=== PATIENT | female | born 1950 | race Caucasian/White ===

== ENCOUNTER 2017-11-12 09:50 | Emergency (ER) | payer MEDICARE, MEDICAID ==
[~2017-11-12] VITALS: Ht 162.6 cm; Wt 68.0 kg
[2017-11-12 11:48] VITALS: BP 128/85
[2017-11-12] MEDS ORDERED: BACITRACIN-POLYMYXIN B TOPICAL OINT UD TOP ONE (14:30)
== END 2017-11-12 14:45 | disposition home or self-care (01) ==
LOC: ER 09:50
DX: M79.671 Pain in right foot (principal)
CPT/HCPCS: 73620

== ENCOUNTER 2017-12-21 09:28 | Emergency (ER) | payer MEDICARE, MEDICAID ==
[~2017-12-21] VITALS: Ht 154.9 cm; Wt 65.8 kg
[2017-12-21 09:42] VITALS: BP 142/85
[2017-12-21] MEDS ORDERED: KETOROLAC TROMETH 60MG/2ML VIAL IM ONE (12:15)
== END 2017-12-21 12:51 | disposition home or self-care (01) ==
LOC: ER 09:28
DX: M51.36 Other intervertebral disc degeneration, lumbar region (principal); M54.16 Radiculopathy, lumbar region; M25.551 Pain in right hip
CPT/HCPCS: 72192; 73502; 96372; 99284; J1885

== ENCOUNTER 2018-11-27 09:21 | Emergency (ER) | payer OTHER, MEDICAID ==
[~2018-11-27] VITALS: Ht 157.5 cm; Wt 65.8 kg
[2018-11-27 09:57] VITALS: BP 151/78
[2018-11-27] MEDS ORDERED: METHOCARBAMOL 500 MG TAB PO ONE (10:30)
[2018-11-27] MEDS ORDERED: KETOROLAC TROMETH 30 MG/ML 1ML VIAL IM ONE (10:30)
== END 2018-11-27 12:42 | disposition home or self-care (01) ==
LOC: ER 09:21
DX: M54.5 Low back pain (principal); G89.29 Other chronic pain; M79.18 Myalgia, other site
CPT/HCPCS: 72131; 96372; 99284; J1885

== ENCOUNTER 2019-11-01 10:11 | Emergency (ER) | payer MEDICAID, OTHER ==
[~2019-11-01] VITALS: Ht 157.5 cm; Wt 64.0 kg
[2019-11-01 10:15] VITALS: BP 147/90
== END 2019-11-01 11:23 | disposition home or self-care (01) ==
LOC: ER 10:11
DX: J20.9 Acute bronchitis, unspecified (principal); I10 Essential (primary) hypertension; E78.00 Pure hypercholesterolemia, unspecified
CPT/HCPCS: 71046

== ENCOUNTER 2021-07-03 15:45 | Inpatient (IN) | payer OTHER ==
[~2021-07-03] VITALS: Ht 157.5 cm; Wt 65.4 kg
[2021-07-03] MEDS ORDERED: SODIUM CHLORIDE 0.9% 1,000 ML IV ONE (17:15)
[2021-07-03] MEDS ORDERED: HYDROmorphone HCL 2 MG/ML VL IV ONE (17:15)
[2021-07-03] MEDS ORDERED: METOCLOPRAMIDE HCL 5MG/ml INJ 2ml VIAL IV ONE (17:15)
[2021-07-03 17:46] LABS: Basophils # (auto) 0.1 10 ^3/uL (0-0.2); Basophils % (auto) 0.6 % (0.0-2.0); Eosinophils # (auto) 0 10 ^3/uL (0-0.8); Hematocrit 42.3 % (36.0-46.0); Hemoglobin 13.9 g/dL (12.2-16.2); Lymphocytes # (auto) 0.9 10 ^3/uL (0.4-5.4); Lymphocytes % (auto) 5.3 % (10.0-50.0); Mean Corpuscular Hemoglobin 29.4 pg (28.0-32.0); Mean Corpuscular Volume 89.1 fL (80.0-100.0); Monocytes # (auto) 0.2 10 ^3/uL (0-1.3); Monocytes % (auto) 0.9 % (0.0-12.0); Neutrophils # (auto) 15.5 10 ^3/uL (1.6-8.6); Neutrophils % (auto) 93.2 % (37.0-80.0); Nucleated Red Blood Cells % 0.1 %; Red Blood Cells 4.74 10^6/uL (4.0-5.20); Red Cell Distribution Width 15.4 % (11.8-14.3); White Blood Cell 16.6 10^3/uL (4.4-10.8)
[2021-07-03 18:03] LABS: Albumin 2.8 g/dL (3.4-5.0); BUN/Creatinine Ratio 28.3; Calcium 8.6 mg/dL (8.5-10.1); Magnesium 2.2 mg/dL (1.6-2.6); Potassium 4.4 mmol/L (3.5-5.1)
[2021-07-03 18:05] LABS: Bilirubin, Total 0.2 mg/dL (0.2-1.0)
[2021-07-03] MEDS ORDERED: MORPHINE SULFATE 4 MG/ML SYR/VIAL IV PRN (19:45)
[2021-07-03] MEDS ORDERED: NITROGLYCERIN 0.4 MG SL TAB SL PRN (19:45)
[2021-07-03] MEDS ORDERED: cefTRIAXone 1GM/50ML D5W 50 ML IV ONE (19:45)
[2021-07-03] MEDS ORDERED: ONDANSETRON HCL 4 MG/2 ML VIAL IV PRN (19:45)
[2021-07-03] MEDS ORDERED: MORPHINE SULFATE INJECTION 2 MG/ML SYRG IV PRN (19:45)
[2021-07-03] MEDS ORDERED: DEXTROSE (50%) 50ML SYRG IV PRN (20:15)
[2021-07-03 20:24] LABS: INR 0.94 (0.9-1.15); Partial Thromboplastin Time 23.7 sec (23.6-33.0)
[2021-07-03 21:51] VITALS: BP 136/82
[2021-07-03] MEDS: SODIUM CHLORIDE 0.9% 1,000 ML IV SCH (21:51)
[2021-07-03] MEDS: InsuLIN REG 1unit/0.01ml Soln (100units/ml) SC SCH (22:00)
[2021-07-03] MEDS: ACCU-CHEK COMFORT CURVE STRIP VI SCH (22:00)
[2021-07-03 22:15] VITALS: BP 136/82
[2021-07-04] MEDS ORDERED: PRED20TA2 PO (02:15)
[2021-07-04 05:00] VITALS: BP 138/81
[2021-07-04] MEDS: SODIUM CHLORIDE 0.9% 1,000 ML IV SCH (05:10)
[2021-07-04] MEDS: ACCU-CHEK COMFORT CURVE STRIP VI SCH ×4 (05:54→23:47)
[2021-07-04] MEDS: InsuLIN REG 1unit/0.01ml Soln (100units/ml) SC SCH ×4 (06:27→22:00)
[2021-07-04 06:36] LABS: Urine Bacteria NONE SEEN /hpf (None Seen); Urine Blood Negative /uL (Negative); Urine Mucus FEW (None Seen); Urine Specific Gravity 1.027 (1.001-1.035); Urine WBC 5 /hpf (0 - 5)
[2021-07-04 06:36] LABS: Basophils # (auto) 0 10 ^3/uL (0-0.2); Basophils % (auto) 0.2 % (0.0-2.0); Eosinophils # (auto) 0 10 ^3/uL (0-0.8); Hematocrit 36.8 % (36.0-46.0); Hemoglobin 12.2 g/dL (12.2-16.2); Lymphocytes % (auto) 16.5 % (10.0-50.0); Mean Corpuscular Hemoglobin 29.5 pg (28.0-32.0); Mean Corpuscular Hgb Conc. 33.2 g/dL (32.0-36.0); Mean Corpuscular Volume 88.8 fL (80.0-100.0); Monocytes # (auto) 0.7 10 ^3/uL (0-1.3); Monocytes % (auto) 3.7 % (0.0-12.0); Neutrophils # (auto) 14.2 10 ^3/uL (1.6-8.6); Neutrophils % (auto) 79.6 % (37.0-80.0); Red Blood Cells 4.15 10^6/uL (4.0-5.20); Red Cell Distribution Width 15.3 % (11.8-14.3); White Blood Cell 17.9 10^3/uL (4.4-10.8)
[2021-07-04 06:51] LABS: Calcium 7.8 mg/dL (8.5-10.1); Potassium 3.8 mmol/L (3.5-5.1)
[2021-07-04 06:55] LABS: Albumin 2.2 g/dL (3.4-5.0); BUN/Creatinine Ratio 58.6
[2021-07-04 06:57] LABS: Bilirubin, Total 0.4 mg/dL (0.2-1.0); Total Protein 5.2 g/dL (6.4-8.2)
[2021-07-04 09:00] VITALS: BP 140/80
[2021-07-04] MEDS ORDERED: cefTRIAXone 1GM/50ML D5W 50 ML IV SCH (09:00)
[2021-07-04] MEDS: MORPHINE SULFATE INJECTION 2 MG/ML SYRG IV PRN ×2 (09:47→17:11)
[2021-07-04] MEDS: predniSONE 20 MG TAB PO SCH (10:09)
[2021-07-04 13:00] VITALS: BP 144/80
[2021-07-04] MEDS ORDERED: SOD CHL 0.45% WITH 20MEQ KCL 1,000 ML IV SCH (13:00)
[2021-07-04] MEDS ORDERED: hydrALAZINE HCL 20 MG/ML VL IV PRN (13:30)
[2021-07-04 17:00] VITALS: BP 133/76
[2021-07-04] MEDS: CALCIUM W/VIT D (600MG/400IU) TAB PO SCH (17:10)
[2021-07-04] MEDS: HYDROcodone-ACET 5/325MG TAB PO PRN (19:40)
[2021-07-04 22:00] VITALS: BP 131/77
[2021-07-04] MEDS: SOD CHL 0.45% WITH 20MEQ KCL 1,000 ML IV SCH (23:47)
[2021-07-05] VITALS (14 sets, daily range): BP systolic 108–148; BP diastolic 63–85
[2021-07-05] MEDS: MORPHINE SULFATE INJECTION 2 MG/ML SYRG IV PRN (05:06)
[2021-07-05 05:07] LABS: Basophils # (auto) 0 10 ^3/uL (0-0.2); Basophils % (auto) 0.1 % (0.0-2.0); Eosinophils # (auto) 0.1 10 ^3/uL (0-0.8); Eosinophils % (auto) 0.3 % (0.0-7.0); Hematocrit 38.4 % (36.0-46.0); Hemoglobin 12.7 g/dL (12.2-16.2); Lymphocytes # (auto) 3.8 10 ^3/uL (0.4-5.4); Mean Corpuscular Hemoglobin 29.5 pg (28.0-32.0); Mean Corpuscular Volume 89.5 fL (80.0-100.0); Monocytes # (auto) 0.7 10 ^3/uL (0-1.3); Monocytes % (auto) 4.5 % (0.0-12.0); Neutrophils # (auto) 10.6 10 ^3/uL (1.6-8.6); Neutrophils % (auto) 70.1 % (37.0-80.0); Red Cell Distribution Width 15.3 % (11.8-14.3); White Blood Cell 15.2 10^3/uL (4.4-10.8)
[2021-07-05] MEDS: InsuLIN REG 1unit/0.01ml Soln (100units/ml) SC SCH ×4 (05:11→21:54)
[2021-07-05] MEDS: ACCU-CHEK COMFORT CURVE STRIP VI SCH ×4 (05:12→21:54)
[2021-07-05 05:34] LABS: BUN/Creatinine Ratio 46.4; Calcium 8.7 mg/dL (8.5-10.1); Potassium 3.9 mmol/L (3.5-5.1)
[2021-07-05] MEDS: HYDROcodone-ACET 5/325MG TAB PO PRN ×2 (08:12→21:55)
[2021-07-05] MEDS: CALCIUM W/VIT D (600MG/400IU) TAB PO SCH ×2 (08:12→17:58)
[2021-07-05] MEDS ORDERED: TETRACAINE 1% INJ 2 ML VIAL IJ ONE (10:46)
[2021-07-05] MEDS ORDERED: BUPIVACAINE W/ EPINEPH 0.25% INJ 50ML MDV ONE (10:46)
[2021-07-05] MEDS ORDERED: fentaNYL CITRATE 100 MCG/2 ML VL ONE (11:00)
[2021-07-05] MEDS ORDERED: MIDAZOLAM HCL 2MG/2ML 2ml VIAL (1mg/ml) ONE (11:00)
[2021-07-05] MEDS ORDERED: DexAMETHasone SOD PHOS 10MG/1ML VIAL INJ ONE (11:01)
[2021-07-05] MEDS ORDERED: MORPHINE SULF PF 2 MG/2 ML SYRG ONE (11:01)
[2021-07-05] MEDS ORDERED: PROPOFOL 10 MG/ML 20 ML IV ONE (11:01)
[2021-07-05] MEDS ORDERED: CLINDAMYCIN 900MG IV 50 ML IV ONE (11:04)
[2021-07-05] MEDS: SOD CHL 0.45% WITH 20MEQ KCL 1,000 ML IV SCH (11:20)
[2021-07-05] MEDS ORDERED: DexAMETHasone SOD PHOS 10MG/1ML VIAL INJ IV PRN (11:45)
[2021-07-05] MEDS ORDERED: NALBUPHINE HCL 10 MG/1ml INJECTION SUBCUT ONE (11:45)
[2021-07-05] MEDS ORDERED: MIDAZOLAM HCL 2MG/2ML 2ml VIAL (1mg/ml) IV PRN (11:45)
[2021-07-05] MEDS ORDERED: NALOXONE HCL 0.4 MG/ML VIAL IV PRN (11:45)
[2021-07-05] MEDS ORDERED: ONDANSETRON HCL 4 MG/2 ML VIAL IV PRN (11:45)
[2021-07-05] MEDS ORDERED: LABETALOL HCL 5 MG/ML 4ML SYRINGE IV PRN (11:45)
[2021-07-05] MEDS ORDERED: HYDROmorphone HCL 2 MG/ML VL IV PRN (11:45)
[2021-07-05] MEDS ORDERED: diphenhdrAMINE HCL 50 MG/1 ML VL IV PRN (11:45)
[2021-07-05] MEDS ORDERED: ePHEDrine SULFATE 50 MG/ML AMP IV PRN (11:45)
[2021-07-05] MEDS ORDERED: LACTATED RINGER'S 1,000 ML IV SCH (12:45)
[2021-07-05] MEDS: SODIUM CHLOR 0.9% PF (SALINE LOCK) 10ML VIAL/SYR IV SCH ×2 (14:06→21:54)
[2021-07-05] MEDS: predniSONE 20 MG TAB PO SCH (17:58)
[2021-07-05] MEDS: CLINDAMYCIN 600MG IV 50 ML IV SCH (17:58)
[2021-07-05] MEDS: FERROUS SULFATE 325mg EC TAB PO SCH (18:02)
[2021-07-05] MEDS: ASCORBIC ACID 500 MG TAB PO SCH (21:54)
[2021-07-06] VITALS (17 sets, daily range): BP systolic 98–145; BP diastolic 65–82
[2021-07-06] MEDS: SOD CHL 0.45% WITH 20MEQ KCL 1,000 ML IV SCH (00:40)
[2021-07-06] MEDS: SODIUM CHLOR 0.9% PF (SALINE LOCK) 10ML VIAL/SYR IV SCH ×3 (06:00→20:54)
[2021-07-06] MEDS: CLINDAMYCIN 600MG IV 50 ML IV SCH ×2 (06:00)
[2021-07-06 06:02] LABS: Hematocrit 33.8 % (36.0-46.0); Hemoglobin 11.3 g/dL (12.2-16.2)
[2021-07-06 06:30] LABS: Potassium 4.6 mmol/L (3.5-5.1)
[2021-07-06] MEDS: ACCU-CHEK COMFORT CURVE STRIP VI SCH ×4 (06:30→20:56)
[2021-07-06] MEDS: InsuLIN REG 1unit/0.01ml Soln (100units/ml) SC SCH ×4 (06:30→20:56)
[2021-07-06 06:37] LABS: Albumin 2.1 g/dL (3.4-5.0); BUN/Creatinine Ratio 56.3; Calcium 8.9 mg/dL (8.5-10.1)
[2021-07-06 06:39] LABS: Bilirubin, Total 0.5 mg/dL (0.2-1.0); Total Protein 5.6 g/dL (6.4-8.2)
[2021-07-06] MEDS: FERROUS SULFATE 325mg EC TAB PO SCH ×2 (08:51→16:54)
[2021-07-06] MEDS: HYDROcodone-ACET 5/325MG TAB PO PRN ×2 (08:51→21:58)
[2021-07-06] MEDS: CALCIUM W/VIT D (600MG/400IU) TAB PO SCH ×2 (08:51→16:54)
[2021-07-06] MEDS: predniSONE 20 MG TAB PO SCH (08:51)
[2021-07-06] MEDS: MULTIPLE VITAMIN TAB PO SCH (08:52)
[2021-07-06] MEDS: ENOXAPARIN SOD 40 MG/0.4 ML SYRINGE SC SCH (08:52)
[2021-07-06] MEDS: ASCORBIC ACID 500 MG TAB PO SCH ×2 (08:52→20:55)
[2021-07-06] MEDS: ACETAMINOPHEN 500 MG TAB PO PRN (12:46)
[2021-07-07] MEDS: SODIUM CHLOR 0.9% PF (SALINE LOCK) 10ML VIAL/SYR IV SCH ×3 (05:24→21:27)
[2021-07-07] MEDS: ACCU-CHEK COMFORT CURVE STRIP VI SCH ×2 (05:25→10:52)
[2021-07-07] MEDS: InsuLIN REG 1unit/0.01ml Soln (100units/ml) SC SCH ×2 (05:25→10:52)
[2021-07-07 05:35] VITALS: BP 139/77
[2021-07-07 05:46] LABS: Basophils # (auto) 0 10 ^3/uL (0-0.2); Basophils % (auto) 0.2 % (0.0-2.0); Eosinophils # (auto) 0 10 ^3/uL (0-0.8); Eosinophils % (auto) 0.1 % (0.0-7.0); Hematocrit 31.1 % (36.0-46.0); Hemoglobin 10.5 g/dL (12.2-16.2); Lymphocytes # (auto) 2.8 10 ^3/uL (0.4-5.4); Lymphocytes % (auto) 17.7 % (10.0-50.0); Mean Corpuscular Hemoglobin 30.3 pg (28.0-32.0); Mean Corpuscular Hgb Conc. 33.7 g/dL (32.0-36.0); Mean Corpuscular Volume 89.9 fL (80.0-100.0); Monocytes # (auto) 0.6 10 ^3/uL (0-1.3); Monocytes % (auto) 3.9 % (0.0-12.0); Neutrophils # (auto) 12.2 10 ^3/uL (1.6-8.6); Neutrophils % (auto) 78.1 % (37.0-80.0); Red Blood Cells 3.45 10^6/uL (4.0-5.20); Red Cell Distribution Width 15.3 % (11.8-14.3); White Blood Cell 15.7 10^3/uL (4.4-10.8)
[2021-07-07] MEDS: FERROUS SULFATE 325mg EC TAB PO SCH ×2 (08:14→17:09)
[2021-07-07] MEDS: ENOXAPARIN SOD 40 MG/0.4 ML SYRINGE SC SCH (08:14)
[2021-07-07] MEDS: ASCORBIC ACID 500 MG TAB PO SCH ×2 (08:14→21:25)
[2021-07-07] MEDS: MULTIPLE VITAMIN TAB PO SCH (08:14)
[2021-07-07] MEDS: predniSONE 20 MG TAB PO SCH (08:14)
[2021-07-07] MEDS: CALCIUM W/VIT D (600MG/400IU) TAB PO SCH ×2 (08:14→17:09)
[2021-07-07] MEDS: HYDROcodone-ACET 5/325MG TAB PO PRN ×3 (09:10→21:26)
[2021-07-07 16:29] VITALS: BP 146/92
[2021-07-07 22:00] VITALS: BP 123/84
[2021-07-07] MEDS: ZOLPIDEM TARTRATE 5 MG TAB PO PRN (22:19)
[2021-07-08 05:00] VITALS: BP 124/78
[2021-07-08 05:42] LABS: Basophils # (auto) 0 10 ^3/uL (0-0.2); Basophils % (auto) 0.1 % (0.0-2.0); Eosinophils # (auto) 0 10 ^3/uL (0-0.8); Eosinophils % (auto) 0.2 % (0.0-7.0); Hematocrit 31.4 % (36.0-46.0); Hemoglobin 10.3 g/dL (12.2-16.2); Lymphocytes # (auto) 4.1 10 ^3/uL (0.4-5.4); Lymphocytes % (auto) 27.5 % (10.0-50.0); Mean Corpuscular Hemoglobin 29.9 pg (28.0-32.0); Mean Corpuscular Hgb Conc. 32.9 g/dL (32.0-36.0); Mean Corpuscular Volume 90.9 fL (80.0-100.0); Monocytes # (auto) 0.6 10 ^3/uL (0-1.3); Monocytes % (auto) 4.1 % (0.0-12.0); Neutrophils # (auto) 10.2 10 ^3/uL (1.6-8.6); Neutrophils % (auto) 68.1 % (37.0-80.0); Nucleated Red Blood Cells % 0.1 %; Red Blood Cells 3.45 10^6/uL (4.0-5.20); Red Cell Distribution Width 15.6 % (11.8-14.3)
[2021-07-08] MEDS: SODIUM CHLOR 0.9% PF (SALINE LOCK) 10ML VIAL/SYR IV SCH ×3 (06:00→22:31)
[2021-07-08] MEDS: FERROUS SULFATE 325mg EC TAB PO SCH ×2 (08:53→17:42)
[2021-07-08] MEDS: CALCIUM W/VIT D (600MG/400IU) TAB PO SCH ×2 (08:54→17:42)
[2021-07-08] MEDS: MULTIPLE VITAMIN TAB PO SCH (08:54)
[2021-07-08] MEDS: ENOXAPARIN SOD 40 MG/0.4 ML SYRINGE SC SCH (08:54)
[2021-07-08] MEDS: ASCORBIC ACID 500 MG TAB PO SCH ×2 (08:54→22:31)
[2021-07-08] MEDS: predniSONE 20 MG TAB PO SCH (08:55)
[2021-07-08 09:00] VITALS: BP 129/82
[2021-07-08] MEDS: ACETAMINOPHEN 500 MG TAB PO PRN ×2 (09:31→17:48)
[2021-07-08 13:00] VITALS: BP 126/82
[2021-07-08 17:00] VITALS: BP 128/81
[2021-07-08 21:00] VITALS: BP 130/83
[2021-07-08] MEDS: ZOLPIDEM TARTRATE 5 MG TAB PO PRN (22:32)
[2021-07-09 04:00] VITALS: BP 137/78
[2021-07-09] MEDS: ACETAMINOPHEN 500 MG TAB PO PRN (05:16)
[2021-07-09] MEDS: SODIUM CHLOR 0.9% PF (SALINE LOCK) 10ML VIAL/SYR IV SCH ×3 (06:05→23:11)
[2021-07-09 06:21] LABS: Basophils # (auto) 0 10 ^3/uL (0-0.2); Basophils % (auto) 0.2 % (0.0-2.0); Eosinophils # (auto) 0 10 ^3/uL (0-0.8); Eosinophils % (auto) 0.3 % (0.0-7.0); Hematocrit 29.9 % (36.0-46.0); Lymphocytes # (auto) 3.8 10 ^3/uL (0.4-5.4); Lymphocytes % (auto) 26.3 % (10.0-50.0); Mean Corpuscular Hemoglobin 30.2 pg (28.0-32.0); Mean Corpuscular Hgb Conc. 33.4 g/dL (32.0-36.0); Mean Corpuscular Volume 90.5 fL (80.0-100.0); Monocytes # (auto) 0.6 10 ^3/uL (0-1.3); Neutrophils % (auto) 69.2 % (37.0-80.0); Red Blood Cells 3.31 10^6/uL (4.0-5.20); Red Cell Distribution Width 15.4 % (11.8-14.3); White Blood Cell 14.5 10^3/uL (4.4-10.8)
[2021-07-09 08:00] VITALS: BP 121/81
[2021-07-09] MEDS: ENOXAPARIN SOD 40 MG/0.4 ML SYRINGE SC SCH (09:14)
[2021-07-09] MEDS: predniSONE 20 MG TAB PO SCH (09:14)
[2021-07-09] MEDS: ASCORBIC ACID 500 MG TAB PO SCH ×2 (09:14→23:11)
[2021-07-09] MEDS: MULTIPLE VITAMIN TAB PO SCH (09:15)
[2021-07-09] MEDS: CALCIUM W/VIT D (600MG/400IU) TAB PO SCH ×2 (09:15→19:06)
[2021-07-09] MEDS: FERROUS SULFATE 325mg EC TAB PO SCH ×2 (09:15→19:06)
[2021-07-09 22:00] VITALS: BP 133/78
[2021-07-09] MEDS: ZOLPIDEM TARTRATE 5 MG TAB PO PRN (23:12)
[2021-07-10 05:00] VITALS: BP 137/76
[2021-07-10 06:12] LABS: Basophils # (auto) 0 10 ^3/uL (0-0.2); Basophils % (auto) 0.2 % (0.0-2.0); Eosinophils # (auto) 0.1 10 ^3/uL (0-0.8); Eosinophils % (auto) 0.4 % (0.0-7.0); Hematocrit 29.5 % (36.0-46.0); Hemoglobin 9.9 g/dL (12.2-16.2); Lymphocytes # (auto) 4.5 10 ^3/uL (0.4-5.4); Lymphocytes % (auto) 26.6 % (10.0-50.0); Mean Corpuscular Hemoglobin 30.4 pg (28.0-32.0); Mean Corpuscular Hgb Conc. 33.5 g/dL (32.0-36.0); Monocytes # (auto) 0.7 10 ^3/uL (0-1.3); Neutrophils # (auto) 11.6 10 ^3/uL (1.6-8.6); Neutrophils % (auto) 68.8 % (37.0-80.0); Nucleated Red Blood Cells % 0.4 %; Red Blood Cells 3.24 10^6/uL (4.0-5.20); Red Cell Distribution Width 15.6 % (11.8-14.3); White Blood Cell 16.9 10^3/uL (4.4-10.8)
[2021-07-10] MEDS: SODIUM CHLOR 0.9% PF (SALINE LOCK) 10ML VIAL/SYR IV SCH (06:32)
[2021-07-10 09:00] VITALS: BP 130/77
[2021-07-10] MEDS: FERROUS SULFATE 325mg EC TAB PO SCH (09:18)
[2021-07-10] MEDS: CALCIUM W/VIT D (600MG/400IU) TAB PO SCH (09:18)
[2021-07-10] MEDS: MULTIPLE VITAMIN TAB PO SCH (09:30)
[2021-07-10] MEDS: ASCORBIC ACID 500 MG TAB PO SCH (09:30)
[2021-07-10] MEDS: predniSONE 20 MG TAB PO SCH (09:30)
[2021-07-10] MEDS: ACETAMINOPHEN 500 MG TAB PO PRN (09:31)
[2021-07-10] MEDS: ENOXAPARIN SOD 40 MG/0.4 ML SYRINGE SC SCH (09:31)
[2021-07-10 13:00] VITALS: BP 136/84
== END 2021-07-10 17:21 | disposition home or self-care (01) | DRG 481 ==
LOC: EDUNIT# 15:45 → EDBD 15:45 → ER 15:50 → TELE 19:44 → TELE-WESTW 21:47 → WEST WING 07-07 09:37
PROVIDERS: ADMIT Internal Medicine; ATTEND Internal Medicine
PROC: 0QU60KZ Supplement Right Upper Femur with Nonautologous Tissue Substitute, Open Approach (ICD-10-PCS; 2021-07-05)
PROC: BQ10ZZZ Fluoroscopy of Right Hip (ICD-10-PCS; 2021-07-05)
PROC: 0QS604Z Reposition Right Upper Femur with Internal Fixation Device, Open Approach (ICD-10-PCS; principal; 2021-07-05 11:06)
DX: S72.21XA Displaced subtrochanteric fracture of right femur, initial encounter for closed fracture (principal); M33.20 Polymyositis, organ involvement unspecified; E44.0 Moderate protein-calorie malnutrition; M16.0 Bilateral primary osteoarthritis of hip; M06.9 Rheumatoid arthritis, unspecified; I10 Essential (primary) hypertension; E78.5 Hyperlipidemia, unspecified; W01.0XXA Fall on same level from slipping, tripping and stumbling without subsequent striking against object, initial encounter; Z20.822 Contact with and (suspected) exposure to COVID-19; R73.9 Hyperglycemia, unspecified; T38.0X5A Adverse effect of glucocorticoids and synthetic analogues, initial encounter; D72.829 Elevated white blood cell count, unspecified; Z68.28 Body mass index [BMI] 28.0-28.9, adult; Z88.0 Allergy status to penicillin; Z98.51 Tubal ligation status; Y93.89 Activity, other specified; Y92.098 Other place in other non-institutional residence as the place of occurrence of the external cause; Y99.8 Other external cause status
CPT/HCPCS: 36415; 71045; 72192; 73502; 76001; 80048; 80053; 81001; 82550; 82962; 83036; 83735; 83874; 84484; 85014; 85018; 85025; 85048; 85610; 85730; 86850; 86900; 86901; 87040; 87086; 87426; 93005; 93306; 96361; 96374; 96375; 97110; 97116; 97163; 97530; G0378; J1100; J1815; J2250; J2704; J3490

== ENCOUNTER 2021-11-04 09:44 | Emergency (ER) | payer OTHER ==
[~2021-11-04] VITALS: Ht 157.5 cm; Wt 61.2 kg
[~2021-11-04 09:44] MED LIST: PRED20TA2 PO
[2021-11-04 12:12] VITALS: BP 174/97
[2021-11-04] MEDS ORDERED: HYDROcodone-ACET 5/325MG TAB PO ONE (12:45)
[2021-11-04] MEDS ORDERED: ACET60TA10 PO (12:52)
== END 2021-11-04 13:17 | disposition home or self-care (01) ==
LOC: ER 09:44
DX: M51.37 Other intervertebral disc degeneration, lumbosacral region (principal); E78.5 Hyperlipidemia, unspecified; I10 Essential (primary) hypertension; Z98.51 Tubal ligation status; Z88.0 Allergy status to penicillin

== ENCOUNTER → 2021-11-25 | Outpatient (CLI) | payer OTHER, MEDICARE ==
[~2021-11-25] MED LIST changes: +ACET60TA10 PO
[2021-11-25 09:14] LABS: Urine Bacteria FEW /hpf (None Seen); Urine Blood Negative /uL (Negative); Urine Specific Gravity 1.018 (1.001-1.035); Urine WBC 3 /hpf (0 - 5)
[2021-11-25 09:18] LABS: Basophils # (auto) 0 10 ^3/uL (0-0.2); Eosinophils # (auto) 0 10 ^3/uL (0-0.8); Monocytes # (auto) 0.6 10 ^3/uL (0-1.3)
[2021-11-25 09:20] LABS: Basophils % (auto) 0.1 % (0.0-2.0); Eosinophils % (auto) 0.1 % (0.0-7.0); Hematocrit 41.8 % (36.0-46.0); Hemoglobin 13.7 g/dL (12.2-16.2); Lymphocytes # (auto) 4.1 10 ^3/uL (0.4-5.4); Lymphocytes % (auto) 29.6 % (10.0-50.0); Mean Corpuscular Hemoglobin 27.9 pg (28.0-32.0); Mean Corpuscular Hgb Conc. 32.8 g/dL (32.0-36.0); Monocytes % (auto) 4.1 % (0.0-12.0); Neutrophils # (auto) 9.1 10 ^3/uL (1.6-8.6); Neutrophils % (auto) 66.1 % (37.0-80.0); Red Blood Cells 4.91 10^6/uL (4.0-5.20); Red Cell Distribution Width 18.5 % (11.8-14.3); White Blood Cell 13.8 10^3/uL (4.4-10.8)
[2021-11-25 09:38] LABS: Albumin 3.3 g/dL (3.4-5.0); Potassium 3.7 mmol/L (3.5-5.1)
[2021-11-25 09:49] LABS: BUN/Creatinine Ratio 15.3; Bilirubin, Total 0.5 mg/dL (0.2-1.0); Calcium 8.7 mg/dL (8.5-10.1); Total Protein 6.6 g/dL (6.4-8.2)
== END | disposition home or self-care (01) ==
LOC: LAB 08:35
PROVIDERS: ATTEND Student in an Organized Health Care Education/Training Program
DX: R73.9 Hyperglycemia, unspecified (principal); I10 Essential (primary) hypertension
CPT/HCPCS: 36415; 80053; 80061; 81001; 83036; 84443; 85025

== ENCOUNTER → 2022-03-03 | Outpatient (CLI) | payer OTHER, MEDICARE | END | disposition home or self-care (01) | LOC: LAB 15:54 | PROVIDERS: ATTEND Student in an Organized Health Care Education/Training Program | DX: Z12.11 Encounter for screening for malignant neoplasm of colon (principal) | CPT/HCPCS: 82270 ==

== ENCOUNTER 2022-03-24 07:38 | Inpatient (IN) | payer OTHER ==
[2022-03-22 12:18] LABS: Basophils # (auto) 0.1 10 ^3/uL (0-0.2); Basophils % (auto) 0.5 % (0.0-2.0); Eosinophils # (auto) 0 10 ^3/uL (0-0.8); Eosinophils % (auto) 0.1 % (0.0-7.0); Hematocrit 42.7 % (36.0-46.0); Hemoglobin 14.2 g/dL (12.2-16.2); Lymphocytes # (auto) 3.2 10 ^3/uL (0.4-5.4); Lymphocytes % (auto) 19.7 % (10.0-50.0); Mean Corpuscular Hemoglobin 29.4 pg (28.0-32.0); Mean Corpuscular Hgb Conc. 33.3 g/dL (32.0-36.0); Mean Corpuscular Volume 88.2 fL (80.0-100.0); Monocytes # (auto) 0.7 10 ^3/uL (0-1.3); Monocytes % (auto) 4.2 % (0.0-12.0); Neutrophils # (auto) 12.4 10 ^3/uL (1.6-8.6); Neutrophils % (auto) 75.5 % (37.0-80.0); Red Blood Cells 4.83 10^6/uL (4.0-5.20); Red Cell Distribution Width 17.9 % (11.8-14.3); White Blood Cell 16.4 10^3/uL (4.4-10.8)
[2022-03-22 12:32] LABS: INR 0.94 (0.9-1.15); Partial Thromboplastin Time 22.2 sec (23.6-33.0)
[2022-03-22 12:40] LABS: Urine Bacteria FEW /hpf (None Seen); Urine Blood Negative /uL (Negative); Urine Mucus FEW (None Seen); Urine Specific Gravity 1.022 (1.001-1.035); Urine WBC 14 /hpf (0 - 5)
[2022-03-22 13:04] LABS: Albumin 3.2 g/dL (3.4-5.0); BUN/Creatinine Ratio 23.5; Bilirubin, Total 0.5 mg/dL (0.2-1.0); Total Protein 6.5 g/dL (6.4-8.2)
[2022-03-22 13:17] LABS: Potassium 2.9 mmol/L (3.5-5.1)
[~2022-03-24] VITALS: Ht 157.5 cm; Wt 64.1 kg
[~2022-03-24 07:38] MED LIST changes: -ACET60TA10 PO; +ALEN70TA74 PO; +AML5T PO; +BACL20TA PO; +HYDR1TAB97 PO; +LATA0.0020 OP; +LISI-283 PO; +PANT40TA2 PO; +TIMO0.5S66 OP
[2022-03-24] MEDS ORDERED: CLINDAMYCIN 600MG IV 50 ML IV ONE ×2 (08:15→11:14)
[2022-03-24] MEDS ORDERED: fentaNYL CITRATE 100 MCG/2 ML VL ONE (10:22)
[2022-03-24] MEDS ORDERED: MIDAZOLAM HCL 2MG/2ML 2ml VIAL (1mg/ml) ONE (10:22)
[2022-03-24] MEDS ORDERED: GLYCOPYRROLATE 0.2 MG/ML 1ML VIAL ONE (10:23)
[2022-03-24] MEDS ORDERED: PROPOFOL 10 MG/ML 20 ML IV ONE (10:23)
[2022-03-24] MEDS ORDERED: ONDANSETRON HCL 4 MG/2 ML VIAL ONE (10:23)
[2022-03-24] MEDS: BUPIVACAINE W/ EPINEPH 0.25% INJ 50ML MDV ONE ×2 (10:29→11:37)
[2022-03-24] MEDS ORDERED: IOHEXOL 300 MG/ML 100ML BOTTLE IJ ONE (10:29)
[2022-03-24] MEDS ORDERED: CIPROFLOXACIN 400MG/200ML 200 ML IV ONE (10:51)
[2022-03-24] MEDS ORDERED: ONDANSETRON HCL 4 MG/2 ML VIAL IV PRN ×2 (12:00→14:30)
[2022-03-24] MEDS ORDERED: HYDROmorphone HCL 2 MG/ML VL/or syr ONE ×2 (12:00→15:56)
[2022-03-24] MEDS: HYDROmorphone HCL 2 MG/ML VL/or syr IV PRN ×2 (12:00→15:58)
[2022-03-24] MEDS ORDERED: ALBUTEROL SULF 2.5 MG/0.5ML(0.5%) NEB SOLN ONE (13:13)
[2022-03-24] MEDS ORDERED: IPRATROPIUM BROM 0.5 MG/2.5ML INH SOL ONE (13:13)
[2022-03-24] MEDS ORDERED: IPRATROPIUM BROM 0.5 MG/2.5ML INH SOL NEB ONE (13:20)
[2022-03-24] MEDS ORDERED: ALBUTEROL SULF 2.5 MG/0.5ML(0.5%) NEB SOLN NEB ONE (13:20)
[2022-03-24] MEDS ORDERED: POTASSIUM CHLORIDE 20 MEQ, LIDOCAINE 1% (LOCAL ANESTH.) 2 ML in SODIUM CHL 0.9% 100 ML IV ONE (14:00)
[2022-03-24] MEDS ORDERED: SODIUM CHLORIDE 0.9% 1,000 ML IV SCH (15:00)
[2022-03-24] MEDS ORDERED: ALBUTEROL SULF 2.5 MG/0.5ML(0.5%) NEB SOLN NEB PRN (15:00)
[2022-03-24] MEDS ORDERED: SOD CHL 0.45% 1,000 ML IV SCH (15:00)
[2022-03-24] MEDS ORDERED: hydrALAZINE HCL 20 MG/ML VL IV PRN (15:00)
[2022-03-24 15:06] VITALS: BP 148/107
[2022-03-24 17:31] VITALS: BP 135/95
[2022-03-24 17:51] LABS: Basophils # (auto) 0.1 10 ^3/uL (0-0.2); Basophils % (auto) 0.4 % (0.0-2.0); Eosinophils # (auto) 0 10 ^3/uL (0-0.8); Eosinophils % (auto) 0.1 % (0.0-7.0); Hematocrit 44.3 % (36.0-46.0); Hemoglobin 14.6 g/dL (12.2-16.2); Lymphocytes % (auto) 15.8 % (10.0-50.0); Mean Corpuscular Hemoglobin 29.2 pg (28.0-32.0); Mean Corpuscular Hgb Conc. 32.9 g/dL (32.0-36.0); Mean Corpuscular Volume 88.8 fL (80.0-100.0); Monocytes # (auto) 0.5 10 ^3/uL (0-1.3); Monocytes % (auto) 4.3 % (0.0-12.0); Neutrophils % (auto) 79.4 % (37.0-80.0); Nucleated Red Blood Cells % 0.1 %; Red Blood Cells 4.99 10^6/uL (4.0-5.20); Red Cell Distribution Width 18.1 % (11.8-14.3); White Blood Cell 12.7 10^3/uL (4.4-10.8)
[2022-03-24 18:00] LABS: Albumin 2.9 g/dL (3.4-5.0); Calcium 8.6 mg/dL (8.5-10.1); Potassium 3.4 mmol/L (3.5-5.1)
[2022-03-24 18:04] LABS: BUN/Creatinine Ratio 18.6; Bilirubin, Total 0.6 mg/dL (0.2-1.0); Total Protein 6.6 g/dL (6.4-8.2)
[2022-03-24 22:00] VITALS: BP 119/88
[2022-03-24] MEDS ORDERED: MEROPENEM 1GM IVPB 100 ML IV SCH (22:00)
[2022-03-25 05:00] VITALS: BP_SYST 124; BP_SYST 129; BP_DIAS 77; BP_DIAS 88
[2022-03-25] MEDS: MORPHINE SULFATE INJ 2 MG/ml SYRG IV PRN ×4 (06:01→23:38)
[2022-03-25 09:00] VITALS: BP 129/96
[2022-03-25] MEDS ORDERED: IOHEXOL 350 MG/ML 100ML IJ ONE (11:31)
[2022-03-25 12:40] VITALS: BP 139/88
[2022-03-25] MEDS ORDERED: LISI20TA28 PO (16:50)
[2022-03-25 17:00] VITALS: BP 145/94
[2022-03-25] MEDS ORDERED: levoFLOXacin 500 MG TAB PO ONE (18:30)
[2022-03-25 22:00] VITALS: BP 145/98
[2022-03-25] MEDS: ENOXAPARIN SOD 60 MG/0.6 ML SYRINGE SC SCH (22:37)
[2022-03-26 05:00] VITALS: BP 120/89
[2022-03-26] MEDS: MORPHINE SULFATE INJ 2 MG/ml SYRG IV PRN ×3 (05:20→23:14)
[2022-03-26 06:09] LABS: BUN/Creatinine Ratio 17.1; Calcium 8.2 mg/dL (8.5-10.1); Magnesium 2.5 mg/dL (1.6-2.6); Potassium 3.1 mmol/L (3.5-5.1)
[2022-03-26 09:00] VITALS: BP 136/95
[2022-03-26] MEDS: levoFLOXacin 500 MG TAB PO SCH (09:15)
[2022-03-26] MEDS: LISINOPRIL 20 MG TAB PO SCH (09:16)
[2022-03-26] MEDS: amLODIPine BESYLATE 5 MG TAB PO SCH (09:16)
[2022-03-26] MEDS: ENOXAPARIN SOD 60 MG/0.6 ML SYRINGE SC SCH ×2 (09:16→23:02)
[2022-03-26 12:46] VITALS: BP 115/87
[2022-03-26] MEDS ORDERED: POTASSIUM CHL 20 Meq TABLET PO ONE (14:15)
[2022-03-26] MEDS ORDERED: APIX5TAB PO (14:19)
[2022-03-26] MEDS ORDERED: POTA10TA32 PO (14:19)
[2022-03-26] MEDS ORDERED: ALBUAER3 IN (14:19)
[2022-03-26 16:37] VITALS: BP 137/95
[2022-03-27] MEDS: MORPHINE SULFATE INJ 2 MG/ml SYRG IV PRN ×2 (04:04→11:35)
[2022-03-27 05:00] VITALS: BP 109/85
[2022-03-27 08:37] VITALS: BP 125/82
[2022-03-27] MEDS: levoFLOXacin 500 MG TAB PO SCH (09:24)
[2022-03-27] MEDS: LISINOPRIL 20 MG TAB PO SCH (09:26)
[2022-03-27] MEDS: amLODIPine BESYLATE 5 MG TAB PO SCH (09:26)
[2022-03-27] MEDS: ENOXAPARIN SOD 60 MG/0.6 ML SYRINGE SC SCH (09:26)
[2022-03-27 13:07] VITALS: BP 130/90
[2022-03-27 13:48] VITALS: BP 130/90
== END 2022-03-27 14:20 | disposition home or self-care (01) | DRG 515 ==
LOC: SUR 07:38 → OVERFLOW 14:30 → WEST WING 16:47
PROVIDERS: ADMIT Registered Nurse; ATTEND Internal Medicine
PROC: 0PU43JZ Supplement Thoracic Vertebra with Synthetic Substitute, Percutaneous Approach (ICD-10-PCS; 2022-03-24)
PROC: 0PS43ZZ Reposition Thoracic Vertebra, Percutaneous Approach (ICD-10-PCS; principal; 2022-03-24 11:00)
DX: M80.88XA Other osteoporosis with current pathological fracture, vertebra(e), initial encounter for fracture (principal); J96.01 Acute respiratory failure with hypoxia; I26.99 Other pulmonary embolism without acute cor pulmonale; S22.080A Wedge compression fracture of T11-T12 vertebra, initial encounter for closed fracture; N39.0 Urinary tract infection, site not specified; J98.11 Atelectasis; Z20.822 Contact with and (suspected) exposure to COVID-19; M54.6 Pain in thoracic spine; E87.6 Hypokalemia; N18.2 Chronic kidney disease, stage 2 (mild); G89.29 Other chronic pain; M54.9 Dorsalgia, unspecified; X58.XXXA Exposure to other specified factors, initial encounter; Y93.89 Activity, other specified; Z74.01 Bed confinement status; Z80.3 Family history of malignant neoplasm of breast; Z98.51 Tubal ligation status; Z88.0 Allergy status to penicillin; Y92.89 Other specified places as the place of occurrence of the external cause; Y99.8 Other external cause status
CPT/HCPCS: 36415; 36600; 71045; 71275; 72070; 76000; 80048; 80053; 80061; 81001; 82805; 83036; 83735; 85025; 85610; 85730; 87086; 93306; 93970; G0378; J2001; J2185; J2250; J2405; J2704; J3490

== ENCOUNTER → 2022-05-09 | Outpatient (CLI) | payer OTHER ==
[~2022-05-09] MED LIST changes: +ALBUAER3 IN; +APIX5TAB PO; +LISI20TA28 PO; +POTA10TA32 PO
[2022-05-09 08:56] LABS: Basophils # (auto) 0.1 10 ^3/uL (0-0.2); Basophils % (auto) 0.8 % (0.0-2.0); Eosinophils # (auto) 0 10 ^3/uL (0-0.8); Eosinophils % (auto) 0.2 % (0.0-7.0); Hematocrit 41.3 % (36.0-46.0); Hemoglobin 13.4 g/dL (12.2-16.2); Lymphocytes # (auto) 2.4 10 ^3/uL (0.4-5.4); Lymphocytes % (auto) 22.1 % (10.0-50.0); Mean Corpuscular Hemoglobin 29.4 pg (28.0-32.0); Mean Corpuscular Hgb Conc. 32.4 g/dL (32.0-36.0); Mean Corpuscular Volume 90.8 fL (80.0-100.0); Monocytes # (auto) 0.6 10 ^3/uL (0-1.3); Monocytes % (auto) 5.9 % (0.0-12.0); Neutrophils # (auto) 7.8 10 ^3/uL (1.6-8.6); Nucleated Red Blood Cells % 0.1 %; Red Blood Cells 4.55 10^6/uL (4.0-5.20); Red Cell Distribution Width 17.9 % (11.8-14.3)
[2022-05-09 09:06] LABS: Urine Bacteria FEW /hpf (None Seen); Urine Blood Negative /uL (Negative); Urine Mucus FEW (None Seen); Urine Specific Gravity 1.019 (1.001-1.035); Urine WBC 48 /hpf (0 - 5)
[2022-05-09 09:30] LABS: Calcium 8.6 mg/dL (8.5-10.1); Potassium 3.1 mmol/L (3.5-5.1)
[2022-05-09 09:35] LABS: Albumin 3.2 g/dL (3.4-5.0); BUN/Creatinine Ratio 22.4; Bilirubin, Total 0.6 mg/dL (0.2-1.0)
== END | disposition home or self-care (01) ==
LOC: LAB 08:41
PROVIDERS: ATTEND Student in an Organized Health Care Education/Training Program
DX: N39.0 Urinary tract infection, site not specified (principal); I10 Essential (primary) hypertension
CPT/HCPCS: 36415; 80053; 81001; 85025; 87086

== ENCOUNTER → 2022-07-18 | Outpatient (CLI) | payer OTHER | END | disposition home or self-care (01) | LOC: XYW 15:34 | PROVIDERS: ATTEND Student in an Organized Health Care Education/Training Program | DX: I11.9 Hypertensive heart disease without heart failure (principal); M25.471 Effusion, right ankle | CPT/HCPCS: 93306 ==

== ENCOUNTER → 2022-07-20 | Outpatient (CLI) | payer OTHER ==
[~2022-07-20] MED LIST changes: +ALBUTEROL SULF 2.5 MG/0.5ML(0.5%) NEB SOLN ONE
== END | disposition home or self-care (01) ==
LOC: RT 10:25
PROVIDERS: ATTEND Internal Medicine Pulmonary Disease
DX: J44.9 Chronic obstructive pulmonary disease, unspecified (principal); R06.00 Dyspnea, unspecified; F17.210 Nicotine dependence, cigarettes, uncomplicated
CPT/HCPCS: 94060; 94727; 94729

== ENCOUNTER → 2022-09-12 | Outpatient (CLI) | payer OTHER ==
[~2022-09-12] MED LIST changes: -ALBUTEROL SULF 2.5 MG/0.5ML(0.5%) NEB SOLN ONE
[2022-09-12 11:58] LABS: INR 1.03 (0.9-1.15); Partial Thromboplastin Time 27.1 sec (24.6-33.4)
== END | disposition home or self-care (01) ==
LOC: LAB 11:25
PROVIDERS: ATTEND Internal Medicine Pulmonary Disease
DX: I26.99 Other pulmonary embolism without acute cor pulmonale (principal); R06.00 Dyspnea, unspecified
CPT/HCPCS: 36415; 82565; 84520; 85610; 85730

== ENCOUNTER 2024-02-10 12:07 | Inpatient (IN) | payer MEDICARE, OTHER ==
[~2024-02-10] VITALS: Ht 149.9 cm; Wt 64.4 kg
[~2024-02-10 12:07] MED LIST changes: -LISI20TA28 PO; +LISI20TA56 PO; +POTA-228 PO; -POTA10TA32 PO
[2024-02-10 13:25] LABS: Basophils # (auto) 0 10 ^3/uL (0-0.2); Basophils % (auto) 0.2 % (0.0-2.0); Eosinophils # (auto) 0 10 ^3/uL (0-0.8); Eosinophils % (auto) 0.1 % (0.0-7.0); Hematocrit 29.9 % (36.0-46.0); Hemoglobin 9.3 g/dL (12.2-16.2); Lymphocytes # (auto) 3.6 10 ^3/uL (0.4-5.4); Lymphocytes % (auto) 25.5 % (10.0-50.0); Mean Corpuscular Hemoglobin 29.4 pg (28.0-32.0); Mean Corpuscular Volume 94.7 fL (80.0-100.0); Monocytes # (auto) 0.7 10 ^3/uL (0-1.3); Monocytes % (auto) 4.7 % (0.0-12.0); Neutrophils # (auto) 9.8 10 ^3/uL (1.6-8.6); Neutrophils % (auto) 69.5 % (37.0-80.0); Nucleated Red Blood Cells % 0.1 %; Red Blood Cells 3.16 10^6/uL (4.0-5.20); Red Cell Distribution Width 18.1 % (11.8-14.3); White Blood Cell 14.1 10^3/uL (4.4-10.8)
[2024-02-10 13:30] LABS: Alanine Aminotransferase 15 U/L (7-40); Albumin 3.5 g/dL (3.2-4.8); Alkaline Phosphatase 81 U/L (46-116); Anion Gap 10 (5-15); Aspartate Aminotransferase 16 U/L (13-40); BUN/Creatinine Ratio 27.1 (10.0-20.0); Bilirubin, Total 0.3 mg/dL (0.2-1.0); Blood Urea Nitrogen 16 mg/dL (9-23); Calcium 8.4 mg/dL (8.5-10.1); Carbon Dioxide 24 mmol/L (20-30); Chloride 109 mmol/L (98-107); Glucose 102 mg/dL (74-106); Potassium 3.5 mmol/L (3.5-5.1); Sodium 143 mmol/L (136-145)
[2024-02-10] MEDS ORDERED: HYDR2.5C39 TOP (13:48)
[2024-02-10] MEDS: FUROSEMIDE 20 MG/2 ML VIAL IV ONE (15:29)
[2024-02-10] MEDS: PANTOPRAZOLE 40 MG TAB PO ONE (15:30)
[2024-02-10] MEDS: SODIUM CHLORIDE 0.9% 1,000 ML IV ONE (15:30)
[2024-02-10] MEDS: ALENDRONATE SODIUM 70 MG PO SCH (16:00)
[2024-02-10] MEDS ORDERED: SODIUM CHLORIDE 0.9% 1,000 ML IV SCH (16:00)
[2024-02-10] MEDS ORDERED: DOCUSATE SOD 100 MG CAP PO PRN (16:00)
[2024-02-10 16:33] LABS: Hematocrit 29.3 % (36.0-46.0); Hemoglobin 9.2 g/dL (12.2-16.2)
[2024-02-10] MEDS: levoFLOXacin 500MG 100 ML IV ONE (17:48)
[2024-02-10] MEDS: metroNIDAZOLE 500MG/100ML 100 ML IV ONE (19:11)
[2024-02-10] MEDS: ONDANSETRON HCL 4 MG/2 ML VIAL IV PRN (19:19)
[2024-02-10] MEDS: MORPHINE SULFATE INJ 2 MG/ml SYRG IV PRN (19:21)
[2024-02-10] MEDS: SODIUM CHLORIDE 0.9% 1,000 ML IV SCH (21:10)
[2024-02-10 22:25] LABS: Hematocrit 28.6 % (36.0-46.0); Hemoglobin 8.7 g/dL (12.2-16.2)
[2024-02-10] MEDS: metroNIDAZOLE 500MG/100ML 100 ML IV SCH (23:35)
[2024-02-10] MEDS: PANTOPRAZOLE 40 MG/10 ML VIAL INJ IV SCH (23:35)
[2024-02-11] VITALS (9 sets, daily range): BP systolic 110–140; BP diastolic 68–82; PULSE 16–90; RESP 16–18; TEMP 94.4–98.7; O2SAT 89–100
[2024-02-11] MEDS ORDERED: ATEN25TA PO (00:37)
[2024-02-11] MEDS ORDERED: APIX2.5T PO (00:37)
[2024-02-11] MEDS ORDERED: LOSA-535 PO (00:37)
[2024-02-11] MEDS ORDERED: GAB100C PO (00:37)
[2024-02-11] MEDS ORDERED: PRED10TA PO (00:37)
[2024-02-11] MEDS ORDERED: ALBU108A5 PO (00:39)
[2024-02-11 06:47] LABS: Basophils # (auto) 0 10 ^3/uL (0-0.2); Basophils % (auto) 0.2 % (0.0-2.0); Eosinophils # (auto) 0 10 ^3/uL (0-0.8); Hemoglobin 8.2 g/dL (12.2-16.2); Monocytes # (auto) 0.7 10 ^3/uL (0-1.3); Nucleated Red Blood Cells % 0.1 %
[2024-02-11 06:49] LABS: Eosinophils % (auto) 0.3 % (0.0-7.0); Hematocrit 26.5 % (36.0-46.0); Lymphocytes # (auto) 2.3 10 ^3/uL (0.4-5.4); Lymphocytes % (auto) 18.7 % (10.0-50.0); Mean Corpuscular Hgb Conc. 30.8 g/dL (32.0-36.0); Mean Corpuscular Volume 97.5 fL (80.0-100.0); Monocytes % (auto) 6.2 % (0.0-12.0); Neutrophils % (auto) 74.6 % (37.0-80.0); Red Blood Cells 2.72 10^6/uL (4.0-5.20); Red Cell Distribution Width 18.5 % (11.8-14.3)
[2024-02-11 06:50] LABS: Alanine Aminotransferase 10 U/L (7-40); Alkaline Phosphatase 65 U/L (46-116); Anion Gap 7 (5-15); Aspartate Aminotransferase 13 U/L (13-40); BUN/Creatinine Ratio 28.8 (10.0-20.0); Blood Urea Nitrogen 15 mg/dL (9-23); Calcium 8.4 mg/dL (8.7-10.4); Carbon Dioxide 26 mmol/L (20-30); Chloride 111 mmol/L (98-107); Glucose 77 mg/dL (74-106); Potassium 4.1 mmol/L (3.5-5.1); Sodium 144 mmol/L (136-145)
[2024-02-11 06:51] LABS: Bilirubin, Total 0.4 mg/dL (0.2-1.0); Total Protein 4.6 g/dL (5.7-8.2)
[2024-02-11 07:29] LABS: Urine Bacteria None Seen /hpf (None Seen)
[2024-02-11 07:51] LABS: Urine Blood 2+ /uL (Negative); Urine Clarity Turbid (Clear); Urine Color Yellow (Yellow); Urine Mucus FEW (None Seen); Urine Protein, UAD 1+ (Negative); Urine Specific Gravity 1.027 (1.001-1.035); Urine Urobilinogen Normal (Negative); Urine WBC 823 /hpf (0 - 5); Urine WBC Clumps PRESENT /hpf (None Seen); Urine pH 5.5 (5.0-9.0)
[2024-02-11] MEDS: LISINOPRIL 20 MG TAB PO SCH (08:14)
[2024-02-11] MEDS: amLODIPine BESYLATE 5 MG TAB PO SCH (08:14)
[2024-02-11] MEDS ORDERED: ACE3T PO (09:54)
[2024-02-11] MEDS ORDERED: LISINOPRIL PO SCH (10:00)
[2024-02-11] MEDS: LATANOPROST 0.005 % OPTH(EYE) SOL 2.5ML OP SCH (10:00)
[2024-02-11] MEDS ORDERED: HYDROCHLOROTHIAZIDE PO SCH (10:00)
[2024-02-11] MEDS: TIMOLOL MAL 0.5% OPTH(EYE) SOL 5ML OP SCH (10:00)
[2024-02-11] MEDS ORDERED: [UNRECOGNIZED DRUG - OTHER] PO SCH (10:00)
[2024-02-11 11:14] LABS: Hemoglobin 7.8 g/dL (12.2-16.2)
[2024-02-11] MEDS: levoFLOXacin 250MG 50 ML IV SCH (16:00)
[2024-02-11 16:04] LABS: Hemoglobin 8.4 g/dL (12.2-16.2)
[2024-02-11 16:06] LABS: Hematocrit 27.9 % (36.0-46.0)
[2024-02-11 21:49] LABS: Hematocrit 30.5 % (36.0-46.0); Hemoglobin 8.5 g/dL (12.2-16.2)
[2024-02-12] VITALS (8 sets, daily range): BP systolic 116–166; BP diastolic 68–85; PULSE 79–95; RESP 14–20; TEMP 97.9–98.8; O2SAT 96–100
[2024-02-12 08:12] LABS: Basophils # (auto) 0 10 ^3/uL (0-0.2); Basophils % (auto) 0.4 % (0.0-2.0); Eosinophils # (auto) 0 10 ^3/uL (0-0.8); Eosinophils % (auto) 0.3 % (0.0-7.0); Hematocrit 24.5 % (36.0-46.0); Hemoglobin 7.8 g/dL (12.2-16.2); Lymphocytes # (auto) 1.2 10 ^3/uL (0.4-5.4); Lymphocytes % (auto) 12.5 % (10.0-50.0); Mean Corpuscular Hemoglobin 29.8 pg (28.0-32.0); Mean Corpuscular Hgb Conc. 31.8 g/dL (32.0-36.0); Mean Corpuscular Volume 93.9 fL (80.0-100.0); Monocytes # (auto) 0.5 10 ^3/uL (0-1.3); Monocytes % (auto) 5.1 % (0.0-12.0); Neutrophils % (auto) 81.7 % (37.0-80.0); Nucleated Red Blood Cells % 0.1 %; Red Blood Cells 2.61 10^6/uL (4.0-5.20); Red Cell Distribution Width 17.3 % (11.8-14.3); White Blood Cell 9.7 10^3/uL (4.4-10.8)
[2024-02-12 08:57] LABS: Anion Gap 8 (5-15); Calcium 8.4 mg/dL (8.5-10.1); Carbon Dioxide 26 mmol/L (20-30); Chloride 107 mmol/L (98-107); Potassium 3.3 mmol/L (3.5-5.1); Sodium 141 mmol/L (136-145)
[2024-02-12 09:03] LABS: BUN/Creatinine Ratio 14.3 (10.0-20.0); Blood Urea Nitrogen 6 mg/dL (9-23); Glucose 93 mg/dL (74-106)
[2024-02-12 09:15] LABS: Magnesium 1.9 mg/dL (1.6-2.6)
[2024-02-12] MEDS: FUROSEMIDE 40 MG/4 ML VIAL IV ONE (17:05)
[2024-02-13] VITALS (7 sets, daily range): BP systolic 110–125; BP diastolic 71–85; PULSE 81–96; RESP 14–20; TEMP 98–99.1; O2SAT 95–100
[2024-02-13] MEDS: FUROSEMIDE 40 MG/4 ML VIAL IV SCH (11:14)
[2024-02-13] MEDS: metroNIDAZOLE 500MG/100ML 100 ML IV SCH (18:22)
[2024-02-13] MEDS: levoFLOXacin 250MG 50 ML IV SCH (22:22)
[2024-02-14] VITALS (8 sets, daily range): BP systolic 97–121; BP diastolic 60–86; PULSE 84–96; RESP 18–22; TEMP 98–98.5; O2SAT 97–100
[2024-02-14] MEDS: IOHEXOL 350 MG/ML 100ML IJ ONE (09:05)
[2024-02-14] MEDS ORDERED: CYCL-838 PO (09:31)
[2024-02-14] MEDS ORDERED: PERCOT PO (09:31)
[2024-02-14] MEDS: traMADol HCL 50 MG TAB PO PRN (11:09)
[2024-02-15] VITALS (8 sets, daily range): BP systolic 86–119; BP diastolic 61–78; PULSE 61–103; RESP 18–20; TEMP 97.6–98.1; O2SAT 91–99
[2024-02-15 06:20] LABS: Basophils # (auto) 0 10 ^3/uL (0-0.2); Basophils % (auto) 0.2 % (0.0-2.0); Eosinophils # (auto) 0.1 10 ^3/uL (0-0.8); Eosinophils % (auto) 0.6 % (0.0-7.0); Hematocrit 26.9 % (36.0-46.0); Hemoglobin 8.6 g/dL (12.2-16.2); Lymphocytes # (auto) 3.1 10 ^3/uL (0.4-5.4); Lymphocytes % (auto) 29.2 % (10.0-50.0); Mean Corpuscular Hemoglobin 29.5 pg (28.0-32.0); Mean Corpuscular Hgb Conc. 31.9 g/dL (32.0-36.0); Mean Corpuscular Volume 92.7 fL (80.0-100.0); Monocytes # (auto) 0.9 10 ^3/uL (0-1.3); Monocytes % (auto) 8.5 % (0.0-12.0); Neutrophils # (auto) 6.5 10 ^3/uL (1.6-8.6); Neutrophils % (auto) 61.5 % (37.0-80.0); Nucleated Red Blood Cells % 0.1 %; Red Cell Distribution Width 17.3 % (11.8-14.3); White Blood Cell 10.5 10^3/uL (4.4-10.8)
[2024-02-15 06:46] LABS: INR 1.09 (0.9-1.15); Prothrombin Time 11.4 sec (9.3-11.8)
[2024-02-15 11:07] LABS: Basophils # (auto) 0 10 ^3/uL (0-0.2); Basophils % (auto) 0.4 % (0.0-2.0); Eosinophils # (auto) 0 10 ^3/uL (0-0.8); Lymphocytes # (auto) 0.5 10 ^3/uL (0.4-5.4); Mean Corpuscular Hgb Conc. 31.6 g/dL (32.0-36.0); Monocytes # (auto) 0.6 10 ^3/uL (0-1.3); Monocytes % (auto) 5.8 % (0.0-12.0); Neutrophils # (auto) 8.5 10 ^3/uL (1.6-8.6); Nucleated Red Blood Cells % 0.1 %; White Blood Cell 9.6 10^3/uL (4.4-10.8)
[2024-02-15 11:12] LABS: Hemoglobin 8.2 g/dL (12.2-16.2); Mean Corpuscular Hemoglobin 29.4 pg (28.0-32.0); Mean Corpuscular Volume 93.1 fL (80.0-100.0); Neutrophils % (auto) 88.8 % (37.0-80.0); Red Blood Cells 2.79 10^6/uL (4.0-5.20); Red Cell Distribution Width 17.3 % (11.8-14.3)
[2024-02-15] MEDS: cefTRIAXone 1GM/50ML D5W 50 ML IV ONE (14:52)
[2024-02-15] MEDS ORDERED: CEFD300C2 PO (16:50)
[2024-02-16 01:00] VITALS: BP 116/68; PULSE 84; RESP 22; TEMP 98.1; O2SAT 99
[2024-02-16] MEDS: ACETAMINOPHEN 325 MG TAB PO PRN (02:51)
[2024-02-16 05:00] VITALS: BP 105/67; PULSE 79; RESP 22; TEMP 97.9; O2SAT 100
[2024-02-16 07:30] VITALS: BP 111/54; TEMP 36.6
[2024-02-16 09:00] VITALS: BP 102/59; PULSE 81; RESP 22; TEMP 97.9; O2SAT 98
[2024-02-16] MEDS: cefTRIAXone 1GM/50ML D5W 50 ML IV SCH (10:11)
[2024-02-16 13:00] VITALS: BP 108/63; PULSE 78; RESP 16; TEMP 97.9; O2SAT 100
[2024-02-16] MEDS ORDERED: PANT40TA2 PO (14:50)
[2024-02-16 15:58] VITALS: BP 102/59; TEMP 36.6
== END 2024-02-16 16:30 | disposition home or self-care (01) | DRG 394 ==
LOC: ER 12:07 → OVERFLOW 16:00 → WEST WING 23:12
PROVIDERS: ADMIT Nurse Practitioner Family; ATTEND Internal Medicine
DX: K64.9 Unspecified hemorrhoids (principal); D62 Acute posthemorrhagic anemia; M48.56XA Collapsed vertebra, not elsewhere classified, lumbar region, initial encounter for fracture; M48.54XA Collapsed vertebra, not elsewhere classified, thoracic region, initial encounter for fracture; N39.0 Urinary tract infection, site not specified; J98.11 Atelectasis; I27.82 Chronic pulmonary embolism; K57.30 Diverticulosis of large intestine without perforation or abscess without bleeding; E78.5 Hyperlipidemia, unspecified; I10 Essential (primary) hypertension; K42.9 Umbilical hernia without obstruction or gangrene; G89.29 Other chronic pain; M81.0 Age-related osteoporosis without current pathological fracture; M47.814 Spondylosis without myelopathy or radiculopathy, thoracic region; Z88.0 Allergy status to penicillin; Z79.899 Other long term (current) drug therapy; Z79.2 Long term (current) use of antibiotics; Z79.01 Long term (current) use of anticoagulants; Z82.3 Family history of stroke; Z80.3 Family history of malignant neoplasm of breast; Z82.0 Family history of epilepsy and other diseases of the nervous system; Z83.3 Family history of diabetes mellitus
CPT/HCPCS: 36415; 71045; 71275; 72146; 72148; 74176; 80048; 80053; 81001; 82962; 83735; 83880; 85014; 85018; 85025; 85610; 86850; 86900; 86901; 87086; 93306; 93970; 97110; 97116; 97163; 97530; C9113; G0378; J1956; J2405; J3490

== ENCOUNTER 2024-10-10 10:13 | Inpatient (IN) | payer OTHER ==
[~2024-10-10] VITALS: Ht 149.9 cm; Wt 88.8 kg
[2024-10-10] VITALS (10 sets, daily range): BP systolic 82–141; BP diastolic 38–96; PULSE 79–117; RESP 17–36; O2SAT 96–100
[~2024-10-10 10:13] MED LIST changes: +ACE3T PO; +ALBU108A5 PO; -ALBUAER3 IN; -ALEN70TA74 PO; -AML5T PO; -APIX5TAB PO; +ATEN25TA PO; -BACL20TA PO; +CEFD300C2 PO; +CYCL-838 PO; +GAB100C PO; -HYDR1TAB97 PO; -LATA0.0020 OP; -LISI-283 PO; -LISI20TA56 PO; +LOSA-535 PO; -POTA-228 PO; +PRED10TA PO; -PRED20TA2 PO; -TIMO0.5S66 OP
--- NOTE | 2024-10-10 10:46 | ED.PDOC ---
SOB-HPI HPI Comments 74y F who presents to the ED via EMS for chief complaint of shortness of breath. Per EMS, pt has been having increased shortness of breath for the past few days getting progressively worse and called EMS. EMS arrived on scene and noticed pt in tripod position with noted increased work of breathing. EMS checked vitals and noted 02 sat of 82 - 84% in room air. Pt was placed on BIPAP and 02 sat catrachito of 98% and pt was brought to the ED. EMS states pt has BP of 80/60 and thus no other treatment was given prior to ED arrival.EMS states pt has noted history of CHF and HTN and states pt does not take her Lasix with noted increased swelling to extremities. Pt in the ED, otherwise in the ED, states she is having chest pain. Pt otherwise has difficulty answering questions and gets short of breath with attempting to speak. Pt otherwise denies any other symptoms at this time. Chief Complaint: shortness of breath Time Seen by MD: 10:30 Primary Care Provider: Raphael Blue Reviewed notes: Nurses Notes, Manufacturing Engineering Director Notes Information Source: Patient, Emergency Med Personnel Mode of Arrival: EMS Brought in by: EMS Severity: Moderate Timing: Days Duration: Since onset Context: At Rest PE Risk Factors: None History of: CHF ( ) Prehospital treatment: Treatment (BIPAP) Associated Signs and Symptoms: Chest Pain Quality: Sharp Radiation: No Radiation If cough with SOB: Non-Productive Past Medical History PAST MEDICAL HISTORY: Arthritis, CHF, High Lipids, HTN Surgical History: Tubal Ligation STAGE TECHNICIAN History: No Pertinent STAGE TECHNICIAN History Family History Family History: Reviewed,noncontributory to illness Social History Smoker: Non-Smoker Alcohol: Occasionally Drugs: Denies Drug Use Lives In: Home Constitutional: denies: chills, diaphoresis, fatigue, fever, malaise, sweats, weakness, others EENTM: denies: blurred vision, double vision, ear bleeding, ear discharge, ear drainage, ear pain, ear ringing, eye pain, eye redness, hearing loss, mouth pain, mouth swelling, nasal discharge, nose bleeding, nose congestion, nose pain, photophobia, tearing, throat pain, throat swelling, voice changes, others Respiratory: reports: shortness of breath; denies: cough, hemoptysis, orthopnea, SOB at rest, SOB with excertion, stridor, wheezing, others Cardiovascular: reports: chest pain; denies: dizzy spells, diaphoresis, Dyspnea on exertion, edema, irregular heart beat, left arm pain, lightheadedness, palpitations, PND, syncope, others Gastrointestinal: denies: abdomen distended, abdominal pain, blood streaked bowels, constipated, diarrhea, dysphagia, difficulty swallowing, hematemesis, melena, nausea, poor appetite, poor fluid intake, rectal bleeding, rectal pain, vomiting, others Genitourinary: denies: abnormal vagina bleeding, burning, dyspareunia, dysuria, flank pain, frequency, hematuria, incontinence, pain, , vagina discharge, urgency, others Neurological: denies: dizziness, fainting, headache, left sided numbness, left sided weakness, numbness, paresthesia, pre-existing deficit, right sided numbness, right sided weakness, seizure, speech problems, tingling, tremors, weakness, others Musculoskeletal: denies: back pain, gout, joint pain, joint swelling, muscle pain, muscle stiffness, neck pain, others Integumetry: denies: bruises, change in color, change in hair/nails, dryness, laceration, lesions, lumps, rash, wounds, others Allergic/Immunocompromised: denies: Difficulty Healing, Frequent Infections, Hives, Itching, others Hematologic/Lymphatic: denies: anemia, blood clots, easy bleeding, easy bruising, swollen glands, others Endocrine: denies: excessive hunger, excessive sweating, excessive thirst, excessive urination, flushing, intolerance to cold, intolerance to heat, unexplained weight gain, unexplained weight loss, others Psychiatric: denies: anxiety, bipolar disorder, depression, hopeless, panic disorder, schizophrenia, sleepless, suicidal, others All Other Systems: Reviewed and Negative Physical Exam General Appearance: Obese, Severe Distress HEENT: Normal ENT Inspection, Pharynx Normal, TMs Normal Neck: Full Range of Motion, Non-Tender, Normal, Normal Inspection Respiratory: Accessory Muscle Use, Chest Non-Tender, Rales, Respiratory Distress Cardiovascular: No Edema, No JVD, No Murmur, No Gallop, Tachycardia Breast Exam: Deferred Gastrointestinal: No Organomegaly, Non Tender, No Pulsatile Mass, Normal Bowel Sounds, Soft Genitalia: Deferred Pelvic: Deferred Rectal: Deferred Extremities: No calf tenderness, Normal capillary refill, Pedal edema Musculoskeletal : Apperance: Normal Neurologic: director industrial museum II-XII nml as Tested, Motor Weakness, Normal Affect, Normal Mood, No Sensory Deficits, Other (The patient is having significant difficulty breathing and is slightly lethargic) Cerebellar Function: Normal Reflexes: Normal Skin: Dry, Normal Color, Warm Lymphatic: No Adenopathy EKG EKG : Pulse Rate (adult): 96 [place]: Normal Cardiac Rhythm: NSR Block: None Hypertrophy: None ST: Normal Was a procedure done? Was a procedure done?: No Differential Dx Differential Diagnosis: CHF, COPD, Pneumonia, Respiratory Distress, Other (acute respiratory failure) X-Ray, Labs, Meds, VS Vital Signs Date Time Temp Pulse Resp B/P (MAP) Pulse Ox O2 Delivery O2 Flow Rate FiO2 10/10/24 13:11 85 29 105/38 (60) 96 10/10/24 12:15 78/48 10/10/24 11:47 83 34 138/82 (100) 99 10/10/24 10:46 96 10/10/24 10:37 96 10/10/24 10:29 117 141/96 Facial BiPAP Mask 60 10/10/24 10:14 98.1 110 36 84/60 (68) 98 Lab Test 10/10/24 13:10 10/10/24 12:39 10/10/24 11:31 Range/Units Sodium Level Pending Potassium Level Pending Chloride Level Pending Carbon Dioxide Level Pending Anion Gap Pending Blood Urea Nitrogen Pending Creatinine Pending Glomerular Filtration Rate Calc Pending BUN/Creatinine Ratio Pending Serum Glucose Pending Lactic Acid Level Pending 10.5 *H 0.4-2.0 mmol/L Calcium Level Pending Total Bilirubin Pending Aspartate Amino Transferase (AST) Pending Alanine Aminotransferase (ALT) Pending Alkaline Phosphatase Pending Troponin I High Sensitivity Pending 18 </=34 ng/L Total Protein Pending Albumin Pending Blood Gas Specimen Type Arterial Blood Gas Sample Site Right radial Blood Gas Patient Temperature 37.0 Arterial Blood Date Drawn Arterial Blood pH 7.364 7.350-7.450 Arterial Blood Partial Pressure CO2 40.2 32.0-45.0 mmHg Arterial Blood Partial Pressure O2 191.4 H 83.0-108.0 mmHg Arterial Blood HCO3 22.4 21.0-28.0 mmol/L Arterial Blood Oxygen Saturation 99.2 H 94.0-98.0 % Arterial Blood Base Excess -2.7 L -2.0-3.0 mmol/L Arterial Blood Oxyhemoglobin 98.3 H 94.0-98.0 % Arterial Blood Carboxyhemoglobin 0.4 L 0.5-1.5 % Arterial Blood Methemoglobin 0.5 0.0-1.5 % Kev Test Yes Blood Gas Total Hemoglobin 11.60 L 12.0-16.0 g/dL Blood Gas Set Respiration Rate 12.0 Blood Gas Modality Mask - bipap FiO2 % 60.0 Blood Gas EPAP 5 Blood Gas IPAP 12 White Blood Count 17.5 H 4.4-10.8 10^3/uL Red Blood Count 3.58 L 4.0-5.20 10^6/uL Hemoglobin 10.5 L 12.2-16.2 g/dL Hematocrit 33.9 L 36.0-46.0 % Mean Corpuscular Volume 94.8 80.0-100.0 fL Mean Corpuscular Hemoglobin 29.5 28.0-32.0 pg Mean Corpuscular Hemoglobin Concent 31.1 L 32.0-36.0 g/dL Red Cell Distribution Width 19.9 H 11.8-14.3 % Platelet Count 422 140-450 10^3/uL Mean Platelet Volume 7.3 6.9-10.8 fL Neutrophils (%) (Auto) 82.0 H 37.0-80.0 % Lymphocytes (%) (Auto) 14.4 10.0-50.0 % Monocytes (%) (Auto) 3.3 0.0-12.0 % Eosinophils (%) (Auto) 0.1 0.0-7.0 % Basophils (%) (Auto) 0.2 0.0-2.0 % Neutrophils # (Auto) 14.3 H 1.6-8.6 10 ^3/uL Lymphocytes # (Auto) 2.5 0.4-5.4 10 ^3/uL Monocytes # (Auto) 0.6 0-1.3 10 ^3/uL Eosinophils # (Auto) 0 0-0.8 10 ^3/uL Basophils # (Auto) 0 0-0.2 10 ^3/uL Nucleated Red Blood Cells 0.1 % B-Type Natriuretic Peptide 126.16 0-100 pg/mL Current Medications Medications (Trade) Dose Ordered Sig/Lisa Route Start Time Stop Time Status Last Admin Norepinephrine Bitartrate 250 ml @ 3.75 mls/hr Q24H IV 10/10/24 12:15 10/10/24 12:15 Sodium Chloride 1,000 ml @ 1,000 mls/hr Q1H ONCE IV 10/10/24 12:45 10/10/24 13:44 10/10/24 13:07 Azithromycin 250 ml @ 125 mls/hr ONCE ONCE IV 10/10/24 13:15 10/10/24 15:14 10/10/24 13:06 The chest x-ray shows: IMPRESSION: Moderate left pleural effusion The patient was initially normotensive but became somewhat hypotensive. We did start the patient on normal saline fluids The patient was then started on norepinephrine secondary to the hypotension. The BNP is 126 The patient was lactic acid level came back significantly elevated at 10.5 We then went into morphine sepsis protocol and gave the patient more normal saline. The patient was also started on azithromycin vancomycin IV piggyback A pulmonary consult will be obtained. The patient's CBC shows an elevated white blood cell count of 17 five The patient was anemic with a hemoglobin of 10.5 and hematocrit of 33.9 The troponin level is within normal limits At this time, the patient was on a BiPAP and will remain on BiPAP to address the difficulty breathing. We will continue to follow up the patient's respiratory status with serial ABGs The patient will be admitted with a DW Images Reviewed?: Images reviewed and evaluated by me Time of 1ST Reevaluation: 11:00 Reevaluation 1ST: Unchanged Patient Education/Counseling: Diagnosis, Treatment Family Education/Counseling: No Family Present Additional Information - I reviewed the following notes from patient's past medical encounters: - The following tests were ordered, and results were reviewed by me: CBC, troponin x3, EKG x3, BNP, ABG, lactic acid, UA, blood culture, chest x-ray - Additional information was gathered from interviewing the following independent Historian: EMS - I reviewed and agreed with the following test results read by other provider: radiologist - I discussed treatments and results with medical personnel and: patient Departure 1 Departure Time of Disposition: 13:30 Impression: Primary Impression: Acute respiratory failure Qualified Codes: J96.01 - Acute respiratory failure with hypoxia Additional Impressions: Pleural effusion, left Leukocytosis Qualified Codes: D72.829 - Elevated white blood cell count, unspecified Disposition: 09 ADMITTED INPATIENT Admit to: [facility] Condition: Fair Critical Care Note Critical Care Time?: Yes (45 min-critical care time only) Stability Stability form required: Yes Unstable for transfer: ICU, CCU, PCU, [facility] (Intensive VS monitoring), Low BP (low high or fluctuating BP), May require CPR (possible rapid decline), ED Physician Assesment (Clinical assesment) Heart Score Heart Score: Heart Score Response (Comments) Value History Moderate Suspicious 1 EKG Normal 0 Age >65 2 Risk Factors 1 or 2 risk factors 1 Troponin Normal limit 0 Total 4 I personally scribed for CORWIN REINA MD ([email or web address]) on 10/10/24 at 10:46. Electronically submitted by Kate Maxwell ([email or web address]). I personally scribed for CORWIN REINA MD (DAVID) on 10/10/24 at 10:48. Electronically submitted by Kate Maxwell ([email or web address]). I personally scribed for CORWIN REINA MD (DAVID) on 10/10/24 at 11:10. Electronically submitted by Kate Maxwell ([email or web address]). CORWIN REINA MD Oct 10, 2024 10:46
[2024-10-10] MEDS: NOREPINEPHRINE 8 MG/250ML KIT 250 ML IV ONE (10:57)
--- NOTE | 2024-10-10 11:21 | DVH ---
CHEST RADIOGRAPH Indication: sob Technique: Single frontal view of the chest was obtained Comparison: XY CHEST PORTABLE on DOS: 02/10/24, CXRP on DOS: 03/25/22, CHEST PORTABLE on DOS: 03/25/22, CHEST XRAY 1 VIEW on DOS: 03/24/22, CXR1 on DOS: 03/24/22 FINDINGS: Lines and Tubes: None Lungs: No focal consolidation. Pleura: Moderate left pleural effusion No pneumothorax. Cardiomediastinal contours: Cardiomegaly Bones: No acute osseous abnormality. IMPRESSION: Moderate left pleural effusion
[2024-10-10] MEDS: FUROSEMIDE 40 MG/4 ML VIAL IV ONE (12:00)
[2024-10-10 12:01] LABS: Basophils # (auto) 0 10 ^3/uL (0-0.2); Basophils % (auto) 0.2 % (0.0-2.0); Eosinophils # (auto) 0 10 ^3/uL (0-0.8); Eosinophils % (auto) 0.1 % (0.0-7.0); Hematocrit 33.9 % (36.0-46.0); Hemoglobin 10.5 g/dL (12.2-16.2); Lymphocytes # (auto) 2.5 10 ^3/uL (0.4-5.4); Lymphocytes % (auto) 14.4 % (10.0-50.0); Mean Corpuscular Hemoglobin 29.5 pg (28.0-32.0); Mean Corpuscular Hgb Conc. 31.1 g/dL (32.0-36.0); Mean Corpuscular Volume 94.8 fL (80.0-100.0); Monocytes # (auto) 0.6 10 ^3/uL (0-1.3); Monocytes % (auto) 3.3 % (0.0-12.0); Neutrophils # (auto) 14.3 10 ^3/uL (1.6-8.6); Nucleated Red Blood Cells % 0.1 %; Platelet Count (auto) 422 10^3/uL (140-450); Red Blood Cells 3.58 10^6/uL (4.0-5.20); Red Cell Distribution Width 19.9 % (11.8-14.3); White Blood Cell 17.5 10^3/uL (4.4-10.8)
[2024-10-10] MEDS: NOREPINEPHRINE 8 MG/250ML KIT 250 ML IV SCH (12:15)
[2024-10-10 12:33] LABS: Lactic Acid w/Reflex 10.5 mmol/L (0.4-2.0)
[2024-10-10] MEDS: VANCOMYCIN 1GM/250ML KIT 250 ML IV ONE (12:45)
[2024-10-10] MEDS ORDERED: levoFLOXacin 500MG 100 ML IV ONE (12:45)
[2024-10-10 12:52] LABS: Base Excess -2.7 mmol/L (-2.0-3.0)
[2024-10-10] MEDS: AZITHROMYCIN 500MG/ 250ML 250 ML IV ONE (13:06)
[2024-10-10] MEDS: SODIUM CHLORIDE 0.9% 1,000 ML IV ONE (13:07)
[2024-10-10] MEDS ORDERED: ONDANSETRON HCL 4 MG/2 ML VIAL IV PRN (13:15)
[2024-10-10] MEDS ORDERED: SODIUM CHLORIDE 0.9% 1,000 ML IV SCH (13:15)
[2024-10-10] MEDS ORDERED: MAALOX PLUS or MAALOX 30 ML PO PRN (13:15)
[2024-10-10] MEDS ORDERED: DOCUSATE SOD 100 MG CAP PO PRN (13:15)
[2024-10-10] MEDS ORDERED: VANCOMYCIN PER PHARMACY 0 MG IV SCH (13:15)
--- NOTE | 2024-10-10 13:17 | DVHHP2 ---
History of Present Illness Reason for Visit: Shortness of breaths History of Present Illness 74-year-old female with a past medical history of CHF arthritis hyperlipidemia hypertension comes to the ED with complaints of shortness of breath patient was stating that the breathing has been gotten harder and harder while she was ma naging at home normally is not on home O2 but on evaluation in the ED patient was saturating in the low 80s and was required to be placed on BiPAP after being placed on BiPAP patient was able to saturate well however she did have borderline blood pressure which required to have fluids but based on patient's history of CHF this became slightly a issue within the ED inpatient was rec ommended for inpatient management and continued care Cardiovascular: CHF, HTN Review of Systems Constitutional: Yes: Weakness; No: Fever, Chills, Sweats, Malaise, Other Eyes: No: Pain, Vision change, Conjunctivae inflammation, Eyelid inflammation, Other, Redness ENT: No: Ear pain, Ear discharge, Nose pain, Nose discharge, Nose congestion, Mouth pain, Mouth swelling, Throat pain, Throat swelling, Other Respiratory: Cough, Shortness of breath, SOB with excertion; No: Dry, Wheezing, Hemoptysis, Pleuritic Pain, Sputum, Wheezing, Other Cardiovascular: Chest Pain, Palpitations, Orthopnea; No: Paroxysmal Noc. Dyspnea, Edema, Lt Headedness, Other Gastrointestinal: No: Nausea, Vomiting, Abdominal Pain, Diarrhea, Constipation, Melena, Hematochezia, Other Genitourinary: No Dysuria, No Frequency, No Incontinence, No Hematuria, No Retention, No Other Musculoskeletal: No: other, neck pain, shoulder pain, arm pain, back pain, hand pain, leg pain, foot pain Skin: No: Rash, Lesions, Jaundice, Bruising, Other Neurological: No: Weakness, Numbness, Incoordination, Change in speech, Confusion, Seizures, Other Allergies: Coded Allergies: Penicillins (Verified Allergy, Mild, 02/15/24) On 02/15/2024; Rx StudentKaterin, interview patient regarding PCN allergy. Patient last reports last dose was 20 years ago where got HIVES. Patient denies, swelling of eyes, lips, throat, and symptoms of SJS. Patient denies taking any oral cephalosporins or Amoxicillin in the past as well. She is willing to try dose of Rocephin. Medications Current Medications Medications Dose Ordered Sig/Lisa Route Start Time Stop Time Status Last Admin Dose Admin Norepinephrine Bitartrate 250 ml @ 3.75 mls/hr Q24H IV 10/10/24 12:15 10/10/24 12:15 3.75 MLS/HR Exam Vital Signs Vital Signs Date Time Temp Pulse Resp B/P (MAP) Pulse Ox O2 Delivery O2 Flow Rate FiO2 10/10/24 12:15 78/48 10/10/24 11:47 83 34 99 10/10/24 10:29 Facial BiPAP Mask 60 10/10/24 10:14 98.1 General Appearance: Oriented X3, Cooperative, moderate distress HEENT: Atraumatic, PERRLA Respiratory: Clear to auscultation (Left-sided rhonchi), Normal air movement Cardiovascular: Regular rate, Normal S1, Normal S2 Abdominal: Normal bowel sounds, No tenderness Extremities: No clubbing, No cyanosis Skin: No rashes, No breakdown Neuro: Normal gait, Normal speech Psych/Mental Status: Mood NL Labs/Xrays Labs Test 10/10/24 12:39 10/10/24 11:31 Range/Units Blood Gas Specimen Type Arterial Blood Gas Sample Site Right radial Blood Gas Patient Temperature 37.0 Arterial Blood Date Drawn [id number] Arterial Blood pH 7.364 7.350-7.450 Arterial Blood Partial Pressure CO2 40.2 32.0-45.0 mmHg Arterial Blood Partial Pressure O2 191.4 H 83.0-108.0 mmHg Arterial Blood HCO3 22.4 21.0-28.0 mmol/L Arterial Blood Oxygen Saturation 99.2 H 94.0-98.0 % Arterial Blood Base Excess -2.7 L -2.0-3.0 mmol/L Arterial Blood Oxyhemoglobin 98.3 H 94.0-98.0 % Arterial Blood Carboxyhemoglobin 0.4 L 0.5-1.5 % Arterial Blood Methemoglobin 0.5 0.0-1.5 % Kev Test Yes Blood Gas Total Hemoglobin 11.60 L 12.0-16.0 g/dL Blood Gas Set Respiration Rate 12.0 Blood Gas Modality Mask - bipap FiO2 % 60.0 Blood Gas EPAP 5 Blood Gas IPAP 12 White Blood Count 17.5 H 4.4-10.8 10^3/uL Red Blood Count 3.58 L 4.0-5.20 10^6/uL Hemoglobin 10.5 L 12.2-16.2 g/dL Hematocrit 33.9 L 36.0-46.0 % Mean Corpuscular Volume 94.8 80.0-100.0 fL Mean Corpuscular Hemoglobin 29.5 28.0-32.0 pg Mean Corpuscular Hemoglobin Concent 31.1 L 32.0-36.0 g/dL Red Cell Distribution Width 19.9 H 11.8-14.3 % Platelet Count 422 140-450 10^3/uL Mean Platelet Volume 7.3 6.9-10.8 fL Neutrophils (%) (Auto) 82.0 H 37.0-80.0 % Lymphocytes (%) (Auto) 14.4 10.0-50.0 % Monocytes (%) (Auto) 3.3 0.0-12.0 % Eosinophils (%) (Auto) 0.1 0.0-7.0 % Basophils (%) (Auto) 0.2 0.0-2.0 % Neutrophils # (Auto) 14.3 H 1.6-8.6 10 ^3/uL Lymphocytes # (Auto) 2.5 0.4-5.4 10 ^3/uL Monocytes # (Auto) 0.6 0-1.3 10 ^3/uL Eosinophils # (Auto) 0 0-0.8 10 ^3/uL Basophils # (Auto) 0 0-0.2 10 ^3/uL Nucleated Red Blood Cells 0.1 % Lactic Acid Level 10.5 *H 0.4-2.0 mmol/L Troponin I High Sensitivity 18 </=34 ng/L B-Type Natriuretic Peptide 126.16 0-100 pg/mL Assessment/Plan Assessment/Plan Admit to step-down Acute on chronic CHF exacerbation Patient with a moderate size left pleural effusion Patient currently on BiPAP P.r.n. breathing treatments Pulmonary consultation for chest tube placement and drainage Patient with an elevated white count we will treat with antibiotics UA still pending possible UTI also suspected Patient will require IV hydration Patient will also require IV diuretics An acute care management to maintain proper fluid balance Patient with a lactate of 10 ABG required to evaluate for a possible need for bicarb drip Critical care time 40 minutes Plan discussed with: Patient My Orders Orders - COLLEEN FUENTES MD Procedure Category Date Status Time Albuterol Medneb PHA 10/10/24 Verified (Ventolin Medneb) 13:15 Ipratropium Medneb PHA 10/10/24 Verified (Atrovent Medneb) 13:15 Med Neb Initial RT 10/10/24 Verified Treatment 13:01 Vancomycin Per PHA 10/10/24 Verified Pharmacy 13:15 Zosyn Extended PHA 10/10/24 Verified Infusion 14:00 *Consult CONS 10/10/24 Verified / 13:01 Comprehensive LAB 10/10/24 Verified Metabolic Panel 13:01 Urinalysis LAB 10/10/24 Verified 13:01 Insert Le Catheter [facility] 10/10/24 Verified 13:01 Furosemide Injection [facility] 10/10/24 Verified (Lasix Injection) 22:00 Admit ADMIT 10/10/24 Verified 13:01 Code Status CODE 10/10/24 Verified 13:01 Vital Signs [facility] 10/10/24 Verified 13:01 Review Orders With [facility] 10/10/24 Verified Adm. 13:01 Regular Diet DIET 10/10/24 Verified Lunch Sodium Chloride 0.9% [facility] 10/10/24 Verified 13:15 Alum & Mag PHA 10/10/24 Verified Hydrox-Simethicone 13:15 Docusate Sodium [facility] 10/10/24 Verified Capsule (Colace 13:15 Acetaminophen Tablet [facility] 10/10/24 Verified (Tylenol Tablet) 13:15 Manuelito Diaz Of Changes [facility] 10/10/24 Verified From Base 13:01 Advance Directive [facility] 10/10/24 Verified 13:01 Basic Metabolic Panel LAB 10/11/24 Verified 04:00 Urinalysis LAB 10/10/24 Verified 13:01 Complete Blood Count LAB 10/11/24 Verified 04:00 Patient Condition ORDERS 10/10/24 Verified 13:01 Allergies [facility] 10/10/24 Verified 13:01 Hydrocodone-Acet PHA 10/10/24 Verified 5/325mg Tab ([place] 13:15 Ondansetron Hcl [facility] 10/10/24 Verified (Zofran) 13:15 Morphine 2mg Iv Q4hprn [facility] 10/10/24 Verified 13:15 Stat Ekg For Chest [facility] 10/10/24 Verified Pain 13:01 Manuelito Diaz Of Changes [facility] 10/10/24 Verified From Base 13:01 Supervisor 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
[2024-10-10 13:48] LABS: Albumin 3.6 g/dL (3.2-4.8); Anion Gap 13 (5-15); BUN/Creatinine Ratio 11.3 (10.0-20.0); Blood Urea Nitrogen 12 mg/dL (9-23); Calcium 9.7 mg/dL (8.7-10.4); Carbon Dioxide 24 mmol/L (20-31); Chloride 105 mmol/L (98-107); Potassium 3.8 mmol/L (3.5-5.1); Sodium 142 mmol/L (136-145)
[2024-10-10 13:51] LABS: Alanine Aminotransferase 61 U/L (7-40); Alkaline Phosphatase 197 U/L (46-116); Aspartate Aminotransferase 169 U/L (13-40); Glucose 215 mg/dL (74-106); Total Protein 5.6 g/dL (5.7-8.2)
[2024-10-10] MEDS: PIPERACILLIN-TAZOB 3.375GM 100 ML IV SCH (14:00)
[2024-10-10] MEDS ORDERED: FUROSEMIDE 40 MG/4 ML VIAL IV SCH (18:00)
[2024-10-10] MEDS: SODIUM CHLORIDE 0.9% 1,000 ML IV SCH (18:30)
--- NOTE | 2024-10-10 19:14 | ECG ---
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
--- NOTE | 2024-10-10 19:28 | DVHNC2 ---
Procedure - ULTRASOUND-GUIDED LEFT INTERNAL JUGULAR CENTRAL VENOUS CANNULATION CPT Codes: 15447 (ultrasound guidance) 94209 (insertion of non-tunneled centrally inserted central venous catheter) 12594 (CXR interpretation) Attending: Dr Palmer Assistants: Dr Pena, PGY 2, Dr Alfredo PGY 1 Time out time: 1834 pm Patient medications and allergies reviewed. The risks and benefits of the procedure and the sedation options and risk were discussed with the patient's healthcare proxy. All questions were answered and informed consent was obtained. Patient identification and proposed procedure were verified prior to the procedure by the physician, and a nurse in the patient's room. The heart rate, respiratory rate, oxygen saturations, blood pressure, adequacy of pulmonary ventilation, and response to care were monitored throughout the procedure. The physical status of the patient was reassessed after the procedure. DATE: 10/10/2024 PHYSICIAN: Veronica Palmer PREOPERATIVE DIAGNOSIS: Septic shock POSTOPERATIVE DIAGNOSIS: Septic shock PROCEDURE PERFORMED: Limited Ultrasound-guided LEFT internal jugular central line placement. ANESTHESIA: 2 mL of 1% lidocaine plain. ESTIMATED BLOOD LOSS: less than 5 mL. SPECIMENS: None. COMPLICATIONS: None. INDICATIONS FOR PROCEDURE: The patient is in need of large bore IV access for administration of fluids, including blood products and vasoactive drugs, possible transvenous cardiac pacing and CVP monitoring for hemodynamic instability. DESCRIPTION OF PROCEDURE IN DETAIL: The patient was lying in the Trendelenburg position with head turned 30 degrees away from the insertion site. The skin was thoroughly sponged with chlorhexidine and allowed to dry. All persons involved were shielded with hair nets, face masks and sterile gowns. With sterile-gloved hands the LEFT neck area was draped with the large disposable sterile field provided in the pre-manufactured kit. The skin and subcutaneous tissues superficial to the LEFT internal jugular vein were anesthetized with 2 mL of 1% lidocaine. The LEFT internal jugular vein was identified on ultrasound from the angle of the mandible down into the supraclavicular fossa using the linear ultrasound probe in the transverse orientation. The carotid artery was identified and avoided utilizing color-flow. The internal jugular vein was then placed in the center of the ultrasound field and compressed for patency. A movement artifact was identified as the needle was advanced through the skin and advanced toward the vessel. A real time hyperechoic signal revealed visualization of vascular needle entry into the lumen as blood was noted to flashback in the syringe. The needle was then held in place while the guide wire was advanced. The needle was then removed. Direct visualization of guide wire location within the vein was noted on ultrasound indicating proper placement and was document in the electronic medical record chart. A skin dilator was advanced over the guidewire and removed, and the triple-lumen catheter was then advanced over the guide wire into proper position. The guide wire was removed and discarded. The ports were aspirated which showed good blood return and then carefully flushed with normal saline. The catheter was stabilized and sutured to the skin with 2-0 silk at 4 anchor points. A sterile bio-patch and dressing was placed over the catheter, including the insertion site. The patient tolerated the procedure well. A chest x-ray was ordered for position confirmation. I reviewed the image immediately after it was taken at bedside. Post-procedure chest x-ray demonstrates the central line in the superior vena and no evidence of any pneumothorax. An image recording of the procedure accompanies the chart. VERONICA PALMER MD Oct 10, 2024 19:28
[2024-10-10 19:39] LABS: INR 1.22 (0.9-1.15); Partial Thromboplastin Time 30.8 SEC (24.5-34.5); Prothrombin Time 12.7 sec (9.3-11.8)
--- NOTE | 2024-10-10 19:41 | DVH ---
CHEST RADIOGRAPH Indication: LEFT IJ PLACEMENT VERIFICATION Technique: Single frontal view of the chest was obtained Comparison: XY CHEST PORTABLE on DOS: 10/10/24, XY CHEST PORTABLE on DOS: 02/10/24, CXRP on DOS: FINDINGS: Lines and Tubes: Left IJ approach central venous catheter coursing through the left medial upper lung zone with extension across the midline over the mid mediastinum with the tip projected over the medi al right mid lung zone. Lungs: Mild diffuse interstitial prominence. Opacification of the left mid and lower lung zone with obscuration of the left hemidiaphragm. Linear density of the right lung base. No pneumothorax. Cardiomediastinal contours: Mild cardiomegaly Bones: No acute osseous abnormality. IMPRESSION: Left IJ approach central venous catheter coursing through the left medial upper lung zone with extens ion across the midline over the mid mediastinum with the tip projected over the medial right mid lung zone. Correlate for possible malpositioned central venous catheter. Redemonstration of moderate left-sided pleural effusion with associated atelectasis. Underlying pneu monia can not be excluded. Mild pulmonary vascular congestion.
--- NOTE | 2024-10-10 19:43 | DVHINCON2 ---
Date of service: Oct 10, [address] Bustos Reason for Consultation Noninvasive positive pressure ventilation, acute hypoxic respiratory failure History of Present Illness 74-year-old woman history of CHF, arthritis, hyperlipidemia, hypertension who presented with shortness of breath. She was currently on noninvasive positive pressure ventilation. History is obtained from daughter. History is obtained f SUHA Chang MD for patient. Pulmonary consultation is called due to acute hypoxic respiratory failure, pleural effusion and noninvasive positive pressure ventilation management. Review of systems: 14 point review of systems is negative unless otherwise noted above. Past medical history: CHF, arthritis, hyperlipidemia, obesity with a BMI of 30.3 Past surgical history: Tubal ligation Medications: Reviewed Allergies: Penicillins Family history: No family history of premature CAD. No family history of lung disease Social history: Nonsmoker. Social alcohol use. No illicit drug use. Lives at home. Family History: Alzheimer's disease G8 MOTHER, Diabetes mellitus G8 BROTHER 19 CHILD FH: breast cancer G8 MOTHER, FH: lung disease G8 FATHER, FH: stroke G8 BROTHER Allergies: Coded Allergies: Penicillins (Verified Allergy, Mild, 02/15/24) On 02/15/2024; Rx [facility], interview patient regarding PCN allergy. Patient last reports last dose was 20 years ago where got HIVES. Patient denies, swelling of eyes, lips, throat, and symptoms of SJS. Patient denies taking any oral cephalosporins or Amoxicillin in the past as well. She is willing to try dose of Rocephin. Home Meds Active Scripts Pantoprazole Sodium Sesquihydr (Protonix) 40 Mg Tab, 40 MG PO DAILY, #30 TAB Prov:VIVIAN WILKERSON MD 02/16/24 Cefdinir (Cefdinir) 300 Mg Cap, 1 CAP PO BID for 5 Days, #10 CAP Prov:VIVIAN WILKERSON MD 02/15/24 Reported Medications Cyclobenzaprine Hcl (CYCLOBENZAPRINE HCL) 7.5 Mg Tab, 5 MG PO TID, TAB 02/14/24 Acetaminophen W/ Codeine (Tylenol W/Cod #3) 1 Tab Tb, 1 TAB PO BID, TAB 02/11/24 Albuterol Sulfate (Albuterol Sulfate Hfa) 108 Mcg/Act Aer, 2 PUFF PO Q6HPRN PRN for SHORTNESS OF BREATH 02/11/24 Gabapentin (Gabapentin) 100 Mg Cap, 1 CAP PO DAILY 02/11/24 Atenolol (Atenolol) 25 Mg Tab, 1 TAB PO DAILY 02/11/24 Losartan Potassium (Losartan Potassium) 100 Mg Tab, 1 TAB PO DAILY 02/11/24 Prednisone (Prednisone) 10 Mg Tab, 1 TAB PO BID 02/11/24 Current Medications Current Medications Medications (Trade) Dose Ordered Sig/Lisa Route PRN Reason Start Time Stop Time Status Last Admin Norepinephrine Bitartrate 250 ml @ 3.75 mls/hr Q24H IV 10/10/24 12:15 10/10/24 12:15 Albuterol (Ventolin Medneb) 2.5 mg Q4HPRN PRN NEB SHORTNESS OF BREATH 10/10/24 13:15 Ipratropium [place] (Atrovent Medneb) 0.5 mg Q4HPRN PRN NEB SHORTNESS OF BREATH 10/10/24 13:15 Vancomycin HCl 0 ml @ 0 mls/hr UD IV 10/10/24 13:15 Piperacillin Sod/ Tazobactam Sod 100 ml @ 100 mls/hr Q8HR IV 10/10/24 14:00 Furosemide (Lasix Injection) 40 mg BIDD IV 10/10/24 18:00 10/10/24 16:38 DC Sodium Chloride 1,000 ml @ 60 mls/hr [id number] IV 10/10/24 13:15 10/10/24 16:40 DC Al Hydrox/Mg Hydrox/Simethicone (Maalox Plus) 30 ml Q6HP PRN PO FOR STOMACH DISTRESS 10/10/24 13:15 Docusate Sodium (Colace Capsule) 100 mg BIDPRN PRN PO FOR CONSTIPATION 10/10/24 13:15 Acetaminophen (Tylenol Tablet) 650 mg Q6HP PRN PO PAIN SCALE 1-3 OR TEMP>100.4 10/10/24 13:15 Acetaminophen/ Hydrocodone Bitart ([place] 5/325MG Tab) 1 tab Q4HP PRN PO MODERATE PAIN (4-6 PAIN SCALE) 10/10/24 13:15 Ondansetron HCl (Zofran) 4 mg Q4HP PRN IV NAUSEA / VOMITING 10/10/24 13:15 Morphine Sulfate 2 mg Q4HPRN PRN IV SEVERE PAIN (7-10 PAIN SCALE) 10/10/24 13:15 Vancomycin HCl 750 mg/Dextrose 250 ml @ 250 mls/hr Q20H IV 10/11/24 11:00 10/10/24 18:00 DC Sodium Chloride 1,000 ml @ 120 mls/hr Q8H20M IV 10/10/24 16:45 Vancomycin HCl 750 mg/Dextrose 100 ml @ 100 mls/hr Q20H IV 10/11/24 11:00 Vital Signs Vital Signs Date Time Temp Pulse Resp B/P (MAP) Pulse Ox O2 Delivery O2 Flow Rate FiO2 10/10/24 17:28 95 Bi-Pap+ 100 100 10/10/24 17:00 83 25 94/62 (73) 10/10/24 10:14 98.1 Physical Exam Gen.: Patient lying in bed in apparent respiratory distress. On noninvasive positive pressure ventilation. Head: Normocephalic, atraumatic Eyes: EOMI/PERRLA. Ears: Normal hearing. Normal anatomy. Neck/trachea: Trachea midline, supple. Nose: Normal external anatomy. Mouth: Moist mucous membranes. Chest: Tachypneic Decreased air entry bilaterally. No wheezing or rhonchi. Diminished breath sounds in the left lower lung field. Cardio vascular: Tachycardic, Positive S1, positive S2. Regular rate and rhythm. Abdomen: Positive bowel sounds in all 4 quadrants. Soft, non-tender, non- distended. : Deferred. Rectal: Deferred Skin: Warm, dry. Intact. Extremities: 2+ radial pulses bilaterally. No lower extremity edema. Neuro: Awake, alert, oriented x3. No gross motor or sensory deficits. Cranial nerves II through XII intact. Gait not assessed. Labs/Diagnostic Data Labs Test 10/10/24 19:02 10/10/24 13:10 10/10/24 12:39 10/10/24 11:31 Range/Units Sodium Level 142 136-145 mmol/L Potassium Level 3.8 3.5-5.1 mmol/L Chloride Level 105 98-107 mmol/L Carbon Dioxide Level 24 20-31 mmol/L Anion Gap 13 5-15 Blood Urea Nitrogen 12 9-23 mg/dL Creatinine 1.06 H 0.550-1.02 mg/dL Glomerular Filtration Rate Calc 55 >90 mL/min BUN/Creatinine Ratio 11.3 10.0-20.0 Serum Glucose 215 H 74-106 mg/dL Calcium Level 9.7 8.7-10.4 mg/dL Total Bilirubin 1.0 0.2-1.0 mg/dL Aspartate Amino Transferase (AST) 169 H 13-40 U/L Alanine Aminotransferase (ALT) 61 H 7-40 U/L Alkaline Phosphatase 197 H 46-116 U/L Total Protein 5.6 L 5.7-8.2 g/dL Albumin 3.6 3.2-4.8 g/dL Blood Gas Specimen Type Arterial Blood Gas Sample Site Right radial Blood Gas Patient Temperature 37.0 Arterial Blood Date Drawn [id number] Arterial Blood pH 7.364 7.350-7.450 Arterial Blood Partial Pressure CO2 40.2 32.0-45.0 mmHg Arterial Blood Partial Pressure O2 191.4 H 83.0-108.0 mmHg Arterial Blood HCO3 22.4 21.0-28.0 mmol/L Arterial Blood Oxygen Saturation 99.2 H 94.0-98.0 % Arterial Blood Base Excess -2.7 L -2.0-3.0 mmol/L Arterial Blood Oxyhemoglobin 98.3 H 94.0-98.0 % Arterial Blood Carboxyhemoglobin 0.4 L 0.5-1.5 % Arterial Blood Methemoglobin 0.5 0.0-1.5 % Kev Test Yes Blood Gas Total Hemoglobin 11.60 L 12.0-16.0 g/dL Blood Gas Set Respiration Rate 12.0 Blood Gas Modality Mask - bipap FiO2 % 60.0 Blood Gas EPAP 5 Blood Gas IPAP 12 White Blood Count 17.5 H 4.4-10.8 10^3/uL Red Blood Count 3.58 L 4.0-5.20 10^6/uL Hemoglobin 10.5 L 12.2-16.2 g/dL Hematocrit 33.9 L 36.0-46.0 % Mean Corpuscular Volume 94.8 80.0-100.0 fL Mean Corpuscular Hemoglobin 29.5 28.0-32.0 pg Mean Corpuscular Hemoglobin Concent 31.1 L 32.0-36.0 g/dL Red Cell Distribution Width 19.9 H 11.8-14.3 % Platelet Count 422 140-450 10^3/uL Mean Platelet Volume 7.3 6.9-10.8 fL Neutrophils (%) (Auto) 82.0 H 37.0-80.0 % Lymphocytes (%) (Auto) 14.4 10.0-50.0 % Monocytes (%) (Auto) 3.3 0.0-12.0 % Eosinophils (%) (Auto) 0.1 0.0-7.0 % Basophils (%) (Auto) 0.2 0.0-2.0 % Neutrophils # (Auto) 14.3 H 1.6-8.6 10 ^3/uL Lymphocytes # (Auto) 2.5 0.4-5.4 10 ^3/uL Monocytes # (Auto) 0.6 0-1.3 10 ^3/uL Eosinophils # (Auto) 0 0-0.8 10 ^3/uL Basophils # (Auto) 0 0-0.2 10 ^3/uL Nucleated Red Blood Cells 0.1 % B-Type Natriuretic Peptide 126.16 0-100 pg/mL Assessment Impression: Acute hypoxic respiratory failure On noninvasive positive pressure ventilation Shock, likely septic Leukocytosis Obesity, BMI 30.3 Pulmonary edema Pneumonitis, likely Gram-negative Elevated troponin Lactic acidosis Plan: CT of the chest report and images reviewed from February 14, 2024. No acute pulmon [place] embolism. Ectasia of the ascending thoracic aorta. Dilated main pulmonary artery suggestive of pulmonary arterial hypertension. Reviewed echo as noted below from February 15, 2024. Normal right ventricular systolic function. I presented to the bedside emergently. I was camera port out stat consult for central line placement and possible left pleural effusion. Limited chest ultrasound was performed that demonstrated hepatocyte lung consistent with lung consolidation. On noninvasive positive pressure ventilation IPAP 12, EPAP five FiO2 at 30%. Respiratory rate 12 Patient currently breathing at 25 ABG reviewed. Compensated On pressors for hemodynamic support. On Levophed at 10 micrograms/minute. Titrate to keep mean arterial blood pressure greater than 65 mmHg/secondary goal systolic blood pressure greater than 90 mmHg. Continue broad-spectrum antibiotics Follow up cultures. Diuresis euvolemia with Lasix twice daily. Monitor ins and outs. Monitor renal function. Monitor electrolytes. Supplement as necessary. Elevated troponin , trending up to 151 Follow up Cardiology recommendations Echo report reviewed from February 15, 2024: Left ventricular ejection fraction 50%. Grade 1 diastolic dysfunction. Normal right ventricular systolic function. BNP within normal limits. Elevated lactic acid level Tapering down with IV fluid hydration Avoid volume overload DVT prophylaxis Updated daughter at bedside. All questions were answered in detail on to her satisfaction. Condition: Critical Prognosis: Poor given multiple comorbidities. Rest of plan per hospitalist and other consultants. A total of 36 minutes of critical care time was spent reviewing the patient record, examining the patient, making a diagnostic and therapeutic plan, discussing this plan with the medical personnel, following up on diagnostic studies and following the patient for clinical stability excluding any and all procedures. At least 50% of this time was spent in direct, [id number] contact. Thank you Dr. Bustos for allowing me to participate in this patient's care. Further recommendations will depend on patient's clinical course. Please do not hesitate to contact me if you have any questions or concerns. This medical document was created using an electronic medical record system with [employer] dictation system. Although this document has been carefully reviewed, there may still be some phonetic and typographical errors. These areas are purely typographical due to imperfections of the software programs, and do not reflect any compromise in the patient's medical care. Plan discussed with: Patient, Daughter, Other (SUHA Packer, RT, MD) VERONICA GILMAN MD Oct 10, 2024 19:43
[2024-10-10 19:49] LABS: Lactic Acid w/Reflex 3.1 mmol/L (0.4-2.0)
[2024-10-10] MEDS: ASPirin 325 MG TAB PO ONE (21:31)
[2024-10-10] MEDS: PIPERACILLIN-TAZOB 3.375GM 100 ML IV ONE (21:32)
[2024-10-10 21:45] LABS: COVID19 ANTIGEN SOFIA FIA NEGATIVE (NEGATIVE); Rapid Influenza A Negative (Negative); Rapid Influenza B Negative (Negative)
[2024-10-10] MEDS: IPRATROPIUM BROM 0.5 MG/2.5ML INH SOL NEB PRN (22:24)
[2024-10-10] MEDS: ALBUTEROL SULF 2.5 MG/0.5ML(0.5%) NEB SOLN NEB PRN (22:24)
[2024-10-11] VITALS (9 sets, daily range): BP systolic 103–110; BP diastolic 65–67; PULSE 69–77; RESP 18–26; TEMP 98.1–99.9; O2SAT 95–100
[2024-10-11 01:08] LABS: Lactic Acid w/Reflex 2.6 mmol/L (0.4-2.0)
[2024-10-11] MEDS: HYDROcodone-ACET 5/325MG TAB PO PRN (01:08)
[2024-10-11] MEDS: HEPARIN SODIUM (PORCINE) 5000 UNITS/ML 1ML VIAL IV ONE (02:04)
[2024-10-11] MEDS: HEPARIN DRIP/D5W 100UNITS/ML 250 ML IV SCH (02:06)
--- NOTE | 2024-10-11 05:00 | DVH ---
CHEST RADIOGRAPH Indication: pneumonia Technique: Single frontal view of the chest was obtained COMPARISON: XY CHEST PORTABLE on DOS: 10/10/24, XY CHEST PORTABLE on DOS: 10/10/24, XY CHEST PORTABLE on DOS: 02/10/24 FINDINGS: Lines and Tubes: Left central venous catheter is unchanged. Lungs: Multifocal airspace disease, increased. Lower lung volumes. Pleura: Small left pleural effusion. No pneumothorax. Cardiomediastinal contours: Cardiomegaly Bones: Unremarkable IMPRESSION: Lower lung volumes and increased multifocal airspace disease.
[2024-10-11 05:04] LABS: Basophils # (auto) 0.1 10 ^3/uL (0-0.2); Basophils % (auto) 0.6 % (0.0-2.0); Eosinophils # (auto) 0 10 ^3/uL (0-0.8); Hematocrit 31.3 % (36.0-46.0); Hemoglobin 9.8 g/dL (12.2-16.2); Lymphocytes # (auto) 1.8 10 ^3/uL (0.4-5.4); Lymphocytes % (auto) 10.8 % (10.0-50.0); Mean Corpuscular Hemoglobin 28.6 pg (28.0-32.0); Mean Corpuscular Hgb Conc. 31.2 g/dL (32.0-36.0); Mean Corpuscular Volume 91.7 fL (80.0-100.0); Monocytes # (auto) 0.8 10 ^3/uL (0-1.3); Monocytes % (auto) 4.7 % (0.0-12.0); Neutrophils # (auto) 14.3 10 ^3/uL (1.6-8.6); Neutrophils % (auto) 83.9 % (37.0-80.0); Nucleated Red Blood Cells % 0.2 %; Platelet Count (auto) 256 10^3/uL (140-450); Red Blood Cells 3.41 10^6/uL (4.0-5.20); Red Cell Distribution Width 19.8 % (11.8-14.3); White Blood Cell 17.1 10^3/uL (4.4-10.8)
--- NOTE | 2024-10-11 05:04 | DVH ---
Exam: CT CT AB PEL WO CON-NO ORAL OR IV History: ABDOMINAL DISTENTION NO URINE OUTPUT Comparison Study: CT 02/10/2024 TECHNIQUE: Multidetector CT of the abdomen was performed from lung bases to pubic symphysis. Imaging was performed without IV contrast. Axial, coronal and sagittal multiplanar reformats were obtained fr om the axial data set by the technologist. Radiation optimization: All CT scans at this facility use at least one of these dose optimization leanne hniques: automated exposure control mA and/or kV adjustment per patient size (includes targeted exam s where dose is matched to clinical indication) or iterative reconstruction. Radiation Dose Information: CT Dose: Dose-length product is 1005.7 mGy*cm FINDINGS: Evaluation of solid organs is limited due to lack of intravenous contrast use. Findings: Imaged portions of the lung bases demonstrate incomplete visualization with atelectasis of the left l ower lung. There are small bilateral pleural effusions. There is a moderate pericardial effusion with mixed density. The ascending aorta estimated 4.9 cm. The liver, spleen, pancreas and adrenal glands appear unremarkable. Nonobstructing bilateral renal ca lculi, small cysts. No evidence of hydronephrosis. No evidence of bowel obstruction or focal bowel wall thickening. Scattered colonic diverticulosis., n o free fluid, free air, or adenopathy. There is a Le catheter in the urinary bladder. Severe degenerative changes of the spine with multilevel compression deformities IMPRESSION: 1. No acute abdominal or pelvic finding. 2. There is a moderate mixed density pericardial effusion with prominent appearance of the ascending aorta measuring 4.9 cm, incompletely imaged as well as atelectatic appearance of the left lung. CT o f the chest with contrast is recommended for further assessment.
[2024-10-11 05:18] LABS: Chloride 104 mmol/L (98-107); Potassium 3.7 mmol/L (3.5-5.1); Sodium 143 mmol/L (136-145)
[2024-10-11 05:19] LABS: Anion Gap 10 (5-15); Carbon Dioxide 29 mmol/L (20-31)
[2024-10-11 05:24] LABS: BUN/Creatinine Ratio 11.2 (10.0-20.0); Blood Urea Nitrogen 23 mg/dL (9-23)
[2024-10-11 05:41] LABS: Glucose 121 mg/dL (74-106)
[2024-10-11] MEDS: PIPERACILLIN-TAZOB 3.375GM 100 ML IV SCH (06:30)
[2024-10-11 08:28] LABS: INR 1.34 (0.9-1.15); Partial Thromboplastin Time 64.3 SEC (24.5-34.5); Prothrombin Time 13.9 sec (9.3-11.8)
[2024-10-11] MEDS: MORPHINE SULFATE INJ 2 MG/ml SYRG IV PRN (09:11)
[2024-10-11] MEDS ORDERED: VANCOMYCIN 750MG VIAL 750 MG in D5W 5% 250 ML IV SCH (11:00)
[2024-10-11] MEDS: DEXTROSE IV SCH (11:10)
[2024-10-11] MEDS: VANCOMYCIN IV SCH (11:10)
--- NOTE | 2024-10-11 12:21 | DVHINCON2 ---
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 At presentation patient was noted to be in respiratory distress as well as having hypotension requiring Levophed. History obtained from family at bedside reports that patient has not been compliant with medications has not been taking her anticoagulation for more than a few wheeze and has been off diuretics. Allergies: Coded Allergies: Penicillins (Verified Allergy, Mild, 02/15/24) On 02/15/2024; Rx Student, Katerin, interview patient regarding PCN allergy. Patient last reports last dose was 20 years ago where got HIVES. Patient denies, swelling of eyes, lips, throat, and symptoms of SJS. Patient denies taking any oral cephalosporins or Amoxicillin in the past as well. She is willing to try dose of Rocephin. Home Meds Active Scripts Pantoprazole Sodium Sesquihydr (Protonix) 40 Mg Tab, 40 MG PO DAILY, #30 TAB Prov:VIVIAN WILKERSON MD 02/16/24 Cefdinir (Cefdinir) 300 Mg Cap, 1 CAP PO BID for 5 Days, #10 CAP Prov:VIVIAN WILKERSON MD 02/15/24 Reported Medications Cyclobenzaprine Hcl (CYCLOBENZAPRINE HCL) 7.5 Mg Tab, 5 MG PO TID, TAB 02/14/24 Acetaminophen W/ Codeine (Tylenol W/Cod #3) 1 Tab Tb, 1 TAB PO BID, TAB 02/11/24 Albuterol Sulfate (Albuterol Sulfate Hfa) 108 Mcg/Act Aer, 2 PUFF PO Q6HPRN PRN for SHORTNESS OF BREATH 02/11/24 Gabapentin (Gabapentin) 100 Mg Cap, 1 CAP PO DAILY 02/11/24 Atenolol (Atenolol) 25 Mg Tab, 1 TAB PO DAILY 02/11/24 Losartan Potassium (Losartan Potassium) 100 Mg Tab, 1 TAB PO DAILY 02/11/24 Prednisone (Prednisone) 10 Mg Tab, 1 TAB PO BID 02/11/24 Current Medications Current Medications Medications (Trade) Dose Ordered Sig/Lisa Route PRN Reason Start Time Stop Time Status Last Admin Albuterol (Ventolin Medneb) 2.5 mg Q4HPRN PRN NEB SHORTNESS OF BREATH 10/10/24 13:15 10/11/24 10:07 Ipratropium [place] (Atrovent Medneb) 0.5 mg Q4HPRN PRN NEB SHORTNESS OF BREATH 10/10/24 13:15 10/11/24 10:07 Vancomycin HCl 0 ml @ 0 mls/hr UD IV 10/10/24 13:15 Piperacillin Sod/ Tazobactam Sod 100 ml @ 100 mls/hr Q8HR IV 10/10/24 14:00 10/10/24 21:30 DC Furosemide (Lasix Injection) 40 mg BIDD IV 10/10/24 18:00 10/10/24 16:38 DC Sodium Chloride 1,000 ml @ 60 mls/hr [id number] IV 10/10/24 13:15 10/10/24 16:40 DC Al Hydrox/Mg Hydrox/Simethicone (Maalox Plus) 30 ml Q6HP PRN PO FOR STOMACH DISTRESS 10/10/24 13:15 Docusate Sodium (Colace Capsule) 100 mg BIDPRN PRN PO FOR CONSTIPATION 10/10/24 13:15 Acetaminophen (Tylenol Tablet) 650 mg Q6HP PRN PO PAIN SCALE 1-3 OR TEMP>100.4 10/10/24 13:15 Acetaminophen/ Hydrocodone Bitart ([place] 5/325MG Tab) 1 tab Q4HP PRN PO MODERATE PAIN (4-6 PAIN SCALE) 10/10/24 13:15 10/11/24 01:08 Ondansetron HCl (Zofran) 4 mg Q4HP PRN IV NAUSEA / VOMITING 10/10/24 13:15 Morphine Sulfate 2 mg Q4HPRN PRN IV SEVERE PAIN (7-10 PAIN SCALE) 10/10/24 13:15 10/11/24 09:11 Vancomycin HCl 750 mg/Dextrose 250 ml @ 250 mls/hr Q20H IV 10/11/24 11:00 10/10/24 18:00 DC Sodium Chloride 1,000 ml @ 120 mls/hr Q8H20M IV 10/10/24 16:45 10/10/24 18:30 Vancomycin HCl 750 mg/Dextrose 100 ml @ 100 mls/hr Q20H IV 10/11/24 11:00 10/11/24 11:10 Piperacillin Sod/ Tazobactam Sod 100 ml @ 100 mls/hr Q8H IV 10/11/24 06:00 10/11/24 06:30 Heparin Sodium/ Dextrose 250 ml @ 8 mls/hr Q24H IV 10/11/24 02:00 10/11/24 02:06 Family History: Alzheimer's disease G8 MOTHER, Diabetes mellitus G8 BROTHER 19 CHILD FH: breast cancer G8 MOTHER, FH: lung disease G8 FATHER, FH: stroke G8 BROTHER Review of Systems Shortness of breath H&P Exam Vital Signs/I&O Vital Sign Date Time Temp Pulse Resp B/P (MAP) Pulse Ox O2 Delivery O2 Flow Rate FiO2 10/11/24 11:00 77 21 101/65 (77) 93 10/11/24 10:07 Nasal Cannula* 4 36 10/11/24 07:30 97.8 97.8 Intake and Output 10/10/24 10/11/24 19:00 07:00 Intake Total 1612.50 ml 1308.935 ml Balance 1612.50 ml 1308.935 ml Intake IV Total 1612.50 ml 1308.935 ml Physical Exam Elderly female Appears ill appears stated age Has shortness of breath Engorged neck veins Large abdomen Multiple bruises over the bilateral upper and lower extremities Le catheter without urine output Labs/Diagnostic Data Labs/Diagnostic Data Laboratory Tests Test 10/11/24 07:51 10/11/24 04:54 10/11/24 00:22 10/10/24 23:44 Range/Units Prothrombin Time 13.9 H 9.3-11.8 sec Prothrombin Time INR 1.34 H 0.9-1.15 Activated Partial Thromboplast Time 64.3 H 24.5-34.5 SEC White Blood Count 17.1 H 4.4-10.8 10^3/uL Red Blood Count 3.41 L 4.0-5.20 10^6/uL Hemoglobin 9.8 L 12.2-16.2 g/dL Hematocrit 31.3 L 36.0-46.0 % Mean Corpuscular Volume 91.7 80.0-100.0 fL Mean Corpuscular Hemoglobin 28.6 28.0-32.0 pg Mean Corpuscular Hemoglobin Concent 31.2 L 32.0-36.0 g/dL Red Cell Distribution Width 19.8 H 11.8-14.3 % Platelet Count 256 140-450 10^3/uL Mean Platelet Volume 7.2 6.9-10.8 fL Neutrophils (%) (Auto) 83.9 H 37.0-80.0 % Lymphocytes (%) (Auto) 10.8 10.0-50.0 % Monocytes (%) (Auto) 4.7 0.0-12.0 % Eosinophils (%) (Auto) 0.0 0.0-7.0 % Basophils (%) (Auto) 0.6 0.0-2.0 % Neutrophils # (Auto) 14.3 H 1.6-8.6 10 ^3/uL Lymphocytes # (Auto) 1.8 0.4-5.4 10 ^3/uL Monocytes # (Auto) 0.8 0-1.3 10 ^3/uL Eosinophils # (Auto) 0 0-0.8 10 ^3/uL Basophils # (Auto) 0.1 0-0.2 10 ^3/uL Nucleated Red Blood Cells 0.2 % Sodium Level 143 136-145 mmol/L Potassium Level 3.7 3.5-5.1 mmol/L Chloride Level 104 98-107 mmol/L Carbon Dioxide Level 29 20-31 mmol/L Anion Gap 10 5-15 Blood Urea Nitrogen 23 # 9-23 mg/dL Creatinine 2.06 #H 0.550-1.02 mg/dL Glomerular Filtration Rate Calc 25 >90 mL/min BUN/Creatinine Ratio 11.2 10.0-20.0 Serum Glucose 121 H 74-106 mg/dL Lactic Acid Level 2.0 2.6 *H 0.4-2.0 mmol/L Calcium Level 9.0 8.7-10.4 mg/dL Troponin I High Sensitivity 806 *H 887 *H </=34 ng/L B-Type Natriuretic Peptide 77.77 0-100 pg/mL Test 10/10/24 19:30 10/10/24 19:02 10/10/24 15:08 10/10/24 13:10 Range/Units Influenza Type A Antigen Negative Negative Influenza Type B Antigen Negative Negative SARS-CoV-2 Antigen (Rapid) Negative NEGATIVE Prothrombin Time 12.7 H 9.3-11.8 sec Prothrombin Time INR 1.22 H 0.9-1.15 Activated Partial Thromboplast Time 30.8 24.5-34.5 SEC Lactic Acid Level 3.1 *H 7.6 *H 0.4-2.0 mmol/L Troponin I High Sensitivity 577 *H 151 *H 35 *H </=34 ng/L Sodium Level 142 136-145 mmol/L Potassium Level 3.8 3.5-5.1 mmol/L Chloride Level 105 98-107 mmol/L Carbon Dioxide Level 24 20-31 mmol/L Anion Gap 13 5-15 Blood Urea Nitrogen 12 9-23 mg/dL Creatinine 1.06 H 0.550-1.02 mg/dL Glomerular Filtration Rate Calc 55 >90 mL/min BUN/Creatinine Ratio 11.3 10.0-20.0 Serum Glucose 215 H 74-106 mg/dL Calcium Level 9.7 8.7-10.4 mg/dL Total Bilirubin 1.0 0.2-1.0 mg/dL Aspartate Amino Transferase (AST) 169 H 13-40 U/L Alanine Aminotransferase (ALT) 61 H 7-40 U/L Alkaline Phosphatase 197 H 46-116 U/L Total Protein 5.6 L 5.7-8.2 g/dL Albumin 3.6 3.2-4.8 g/dL Test 10/10/24 12:39 10/10/24 11:31 Range/Units Blood Gas Specimen Type Arterial Blood Gas Sample Site Right radial Blood Gas Patient Temperature 37.0 Arterial Blood Date Drawn [id number] Arterial Blood pH 7.364 7.350-7.450 Arterial Blood Partial Pressure CO2 40.2 32.0-45.0 mmHg Arterial Blood Partial Pressure O2 191.4 H 83.0-108.0 mmHg Arterial Blood HCO3 22.4 21.0-28.0 mmol/L Arterial Blood Oxygen Saturation 99.2 H 94.0-98.0 % Arterial Blood Base Excess -2.7 L -2.0-3.0 mmol/L Arterial Blood Oxyhemoglobin 98.3 H 94.0-98.0 % Arterial Blood Carboxyhemoglobin 0.4 L 0.5-1.5 % Arterial Blood Methemoglobin 0.5 0.0-1.5 % Kev Test Yes Blood Gas Total Hemoglobin 11.60 L 12.0-16.0 g/dL Blood Gas Set Respiration Rate 12.0 Blood Gas Modality Mask - bipap FiO2 % 60.0 Blood Gas EPAP 5 Blood Gas IPAP 12 White Blood Count 17.5 H 4.4-10.8 10^3/uL Red Blood Count 3.58 L 4.0-5.20 10^6/uL Hemoglobin 10.5 L 12.2-16.2 g/dL Hematocrit 33.9 L 36.0-46.0 % Mean Corpuscular Volume 94.8 80.0-100.0 fL Mean Corpuscular Hemoglobin 29.5 28.0-32.0 pg Mean Corpuscular Hemoglobin Concent 31.1 L 32.0-36.0 g/dL Red Cell Distribution Width 19.9 H 11.8-14.3 % Platelet Count 422 140-450 10^3/uL Mean Platelet Volume 7.3 6.9-10.8 fL Neutrophils (%) (Auto) 82.0 H 37.0-80.0 % Lymphocytes (%) (Auto) 14.4 10.0-50.0 % Monocytes (%) (Auto) 3.3 0.0-12.0 % Eosinophils (%) (Auto) 0.1 0.0-7.0 % Basophils (%) (Auto) 0.2 0.0-2.0 % Neutrophils # (Auto) 14.3 H 1.6-8.6 10 ^3/uL Lymphocytes # (Auto) 2.5 0.4-5.4 10 ^3/uL Monocytes # (Auto) 0.6 0-1.3 10 ^3/uL Eosinophils # (Auto) 0 0-0.8 10 ^3/uL Basophils # (Auto) 0 0-0.2 10 ^3/uL Nucleated Red Blood Cells 0.1 % Lactic Acid Level 10.5 *H 0.4-2.0 mmol/L Troponin I High Sensitivity 18 </=34 ng/L B-Type Natriuretic Peptide 126.16 0-100 pg/mL Assessment Acute kidney injury hemodynamically mediated in setting of hypotension plus- minus cardiorenal syndrome Diastolic heart failure Chronic kidney disease stage 2 COPD Coronary artery disease History of DVT/PE Initially presented in shock requiring pressors now improved Le catheter shows no urinary output at this time likely in the setting of hypo perfusion and hypotension concerning for evolving ATN. Diuretic challenge today Recommend maintain mean arterial pressure greater than 65 Echocardiogram Currently patient is on a heparin drip Cardiology consultation Explained to family at bedside patient has poor prognosis given multiple medical conditions and high possibility of requiring dialysis during admission. Plan discussed with: Patient LENA RAMIREZ MD Oct 11, 2024 12:21
[2024-10-11] MEDS: FUROSEMIDE 100 MG/10ML VIAL IV ONE (13:37)
[2024-10-11 14:57] LABS: INR 1.32 (0.9-1.15); Partial Thromboplastin Time 53.8 SEC (24.5-34.5); Prothrombin Time 13.7 sec (9.3-11.8)
--- NOTE | 2024-10-11 15:33 | DVHINCON2 ---
Date of service: Oct 11, 2024 Reason for Consultation Take over care given she belongs to [facility] health plan/HMO per their request History of Present Illness 74-year-old female with a past medical history of CHF arthritis hyperlipidemia hypertension comes to the ED with complaints of shortness of breath patient was stating that the breathing has been gotten harder and harder while she was managing at home normally is not on home O2 but on evaluation in the ED patient was saturating in the low 80s and was required to be placed on BiPAP after being placed on BiPAP patient was able to saturate well however she did have borderline blood pressure which required to have fluids but based on patient's history of CHF this became slightly a issue within the ED inpatient was recommended for inpatient management and continued care. Took over care today. Today patient is off of pressors and off of BiPAP. She was on nasal cannula. Family at bedside. Denies any chest pain. Shortness for breath says he has improved. Complains of weakness. Past Medical History Arthritis, CHF, High Lipids, HTN Past Surgical History Tubal Ligation Family History: Alzheimer's disease G8 MOTHER, Diabetes mellitus G8 BROTHER 19 CHILD FH: breast cancer G8 MOTHER, FH: lung disease G8 FATHER, FH: stroke G8 BROTHER Allergies: Coded Allergies: Penicillins (Verified Allergy, Mild, 02/15/24) On 02/15/2024; Rx StudentKaterin, interview patient regarding PCN allergy. Patient last reports last dose was 20 years ago where got HIVES. Patient denies, swelling of eyes, lips, throat, and symptoms of SJS. Patient denies taking any oral cephalosporins or Amoxicillin in the past as well. She is willing to try dose of Rocephin. Home Meds Active Scripts Pantoprazole Sodium Sesquihydr (Protonix) 40 Mg Tab, 40 MG PO DAILY, #30 TAB Prov:VIVIAN WILKERSON MD 02/16/24 Cefdinir (Cefdinir) 300 Mg Cap, 1 CAP PO BID for 5 Days, #10 CAP Prov:VIVIAN WILKERSON MD 02/15/24 Reported Medications Cyclobenzaprine Hcl (CYCLOBENZAPRINE HCL) 7.5 Mg Tab, 5 MG PO TID, TAB 02/14/24 Acetaminophen W/ Codeine (Tylenol W/Cod #3) 1 Tab Tb, 1 TAB PO BID, TAB 02/11/24 Albuterol Sulfate (Albuterol Sulfate Hfa) 108 Mcg/Act Aer, 2 PUFF PO Q6HPRN PRN for SHORTNESS OF BREATH 02/11/24 Gabapentin (Gabapentin) 100 Mg Cap, 1 CAP PO DAILY 02/11/24 Atenolol (Atenolol) 25 Mg Tab, 1 TAB PO DAILY 02/11/24 Losartan Potassium (Losartan Potassium) 100 Mg Tab, 1 TAB PO DAILY 02/11/24 Prednisone (Prednisone) 10 Mg Tab, 1 TAB PO BID 02/11/24 Current Medications Current Medications Medications (Trade) Dose Ordered Sig/Lisa Route PRN Reason Start Time Stop Time Status Last Admin Furosemide (Lasix Injection) 40 mg BIDD IV 10/10/24 18:00 10/10/24 16:38 DC Vancomycin HCl 750 mg/Dextrose 250 ml @ 250 mls/hr Q20H IV 10/11/24 11:00 10/10/24 18:00 DC Sodium Chloride 1,000 ml @ 120 mls/hr Q8H20M IV 10/10/24 16:45 10/11/24 13:37 Vancomycin HCl 750 mg/Dextrose 100 ml @ 100 mls/hr Q20H IV 10/11/24 11:00 10/11/24 11:10 Piperacillin Sod/ Tazobactam Sod 100 ml @ 100 mls/hr Q8H IV 10/11/24 06:00 10/11/24 14:49 Heparin Sodium/ Dextrose 250 ml @ 8 mls/hr Q24H IV 10/11/24 02:00 10/11/24 02:06 Review of Systems No complaints of chest pain today. No fevers chills or sweats. Patient says she has not had much urinary output in the last 2-3 days. Other review of systems reviewed normal. Vital Signs Vital Signs Date Time Temp Pulse Resp B/P (MAP) Pulse Ox O2 Delivery O2 Flow Rate FiO2 10/11/24 14:15 99 23 93/63 (73) 99 10/11/24 10:07 Nasal Cannula* 4 36 10/11/24 07:30 97.8 97.8 Physical Exam Elderly female comfortable in bed. at bedside. Alert awake oriented x3. HEENT neck supple no JVD pupils equal round react to light. Heart regular rate and rhythm S1 plus S2 without any audible murmurs. Lungs fair air movement with a degraded breath sounds in the bases. No wheezing noted. Abdomen is obese soft nontender positive bowel sounds. Extremities trace pitting edema noted around the ankles. Positive distal pedal pulses. No focal neuro deficits noted Labs/Diagnostic Data Labs Test 10/11/24 14:20 10/11/24 04:54 10/10/24 19:30 10/10/24 13:10 Range/Units Prothrombin Time 13.7 H 9.3-11.8 sec Prothrombin Time INR 1.32 H 0.9-1.15 Activated Partial Thromboplast Time 53.8 H 24.5-34.5 SEC White Blood Count 17.1 H 4.4-10.8 10^3/uL Red Blood Count 3.41 L 4.0-5.20 10^6/uL Hemoglobin 9.8 L 12.2-16.2 g/dL Hematocrit 31.3 L 36.0-46.0 % Mean Corpuscular Volume 91.7 80.0-100.0 fL Mean Corpuscular Hemoglobin 28.6 28.0-32.0 pg Mean Corpuscular Hemoglobin Concent 31.2 L 32.0-36.0 g/dL Red Cell Distribution Width 19.8 H 11.8-14.3 % Platelet Count 256 140-450 10^3/uL Mean Platelet Volume 7.2 6.9-10.8 fL Neutrophils (%) (Auto) 83.9 H 37.0-80.0 % Lymphocytes (%) (Auto) 10.8 10.0-50.0 % Monocytes (%) (Auto) 4.7 0.0-12.0 % Eosinophils (%) (Auto) 0.0 0.0-7.0 % Basophils (%) (Auto) 0.6 0.0-2.0 % Neutrophils # (Auto) 14.3 H 1.6-8.6 10 ^3/uL Lymphocytes # (Auto) 1.8 0.4-5.4 10 ^3/uL Monocytes # (Auto) 0.8 0-1.3 10 ^3/uL Eosinophils # (Auto) 0 0-0.8 10 ^3/uL Basophils # (Auto) 0.1 0-0.2 10 ^3/uL Nucleated Red Blood Cells 0.2 % Sodium Level 143 136-145 mmol/L Potassium Level 3.7 3.5-5.1 mmol/L Chloride Level 104 98-107 mmol/L Carbon Dioxide Level 29 20-31 mmol/L Anion Gap 10 5-15 Blood Urea Nitrogen 23 # 9-23 mg/dL Creatinine 2.06 #H 0.550-1.02 mg/dL Glomerular Filtration Rate Calc 25 >90 mL/min BUN/Creatinine Ratio 11.2 10.0-20.0 Serum Glucose 121 H 74-106 mg/dL Lactic Acid Level 2.0 0.4-2.0 mmol/L Calcium Level 9.0 8.7-10.4 mg/dL Troponin I High Sensitivity 806 *H </=34 ng/L B-Type Natriuretic Peptide 77.77 0-100 pg/mL Influenza Type A Antigen Negative Negative Influenza Type B Antigen Negative Negative SARS-CoV-2 Antigen (Rapid) Negative NEGATIVE Total Bilirubin 1.0 0.2-1.0 mg/dL Aspartate Amino Transferase (AST) 169 H 13-40 U/L Alanine Aminotransferase (ALT) 61 H 7-40 U/L Alkaline Phosphatase 197 H 46-116 U/L Total Protein 5.6 L 5.7-8.2 g/dL Albumin 3.6 3.2-4.8 g/dL Test 10/10/24 12:39 Range/Units Blood Gas Specimen Type Arterial Blood Gas Sample Site Right radial Blood Gas Patient Temperature 37.0 Arterial Blood Date Drawn [id number] Arterial Blood pH 7.364 7.350-7.450 Arterial Blood Partial Pressure CO2 40.2 32.0-45.0 mmHg Arterial Blood Partial Pressure O2 191.4 H 83.0-108.0 mmHg Arterial Blood HCO3 22.4 21.0-28.0 mmol/L Arterial Blood Oxygen Saturation 99.2 H 94.0-98.0 % Arterial Blood Base Excess -2.7 L -2.0-3.0 mmol/L Arterial Blood Oxyhemoglobin 98.3 H 94.0-98.0 % Arterial Blood Carboxyhemoglobin 0.4 L 0.5-1.5 % Arterial Blood Methemoglobin 0.5 0.0-1.5 % Kev Test Yes Blood Gas Total Hemoglobin 11.60 L 12.0-16.0 g/dL Blood Gas Set Respiration Rate 12.0 Blood Gas Modality Mask - bipap FiO2 % 60.0 Blood Gas EPAP 5 Blood Gas IPAP 12 Microbiology Date/Time Source Procedure Growth Status 10/10/24 11:31 Blood Blood Culture - Preliminary NO GROWTH AFTER 24 HOURS OF INCUBATION. Resulted Assessment Continued treat pneumonia with antibiotics. We will do a follow up echocardiogram. Unable to give much diuretics due to low blood pressure. Lactic acid has improved. Downgrade and transferred telemetry floor today. Physical therapy evaluation. Monitor urinary output. Otherwise follow clinical management per clinical course and pending evaluations and studies. Discussed with the patient's/nurse as well as at bedside regarding care plan. Problems(with codes): (1) History of hypertension (2) Hypotension (3) Pleural effusion due to CHF (congestive heart failure) (4) Acute on chronic heart failure (5) Acute respiratory failure (6) Leukocytosis (7) Pleural effusion, left Plan discussed with: Patient, Other ELODIA CEBALLOS MD Oct 11, 2024 15:33
--- NOTE | 2024-10-11 15:53 | DVHPN2 ---
Progress Note - Dictate Date Seen: Oct 11, 2024 Medical Necessity Reason Pt with a Central, PICC or Fol: Yes The following are medically ne: Woodward Catheter Reason for woodward catheter: Strict I&O Subjective Patient seen and examined at bedside. Off BiPAP, on supplemental oxygen Overnight events reviewed. vital signs Vital Sign Date Time Temp Pulse Resp B/P (MAP) Pulse Ox O2 Delivery O2 Flow Rate FiO2 10/11/24 14:15 99 23 93/63 (73) 99 10/11/24 10:07 Nasal Cannula* 4 36 10/11/24 07:30 97.8 97.8 Total Intake and Output 10/10/24 10/10/24 10/11/24 14:59 22:59 06:59 Intake Total 1412.50 ml 875.00 ml 625.935 ml Balance 1412.50 ml 875.00 ml 625.935 ml medications Current Medications Medications Dose Ordered Sig/Lisa Route Start Time Stop Time Status Last Admin Dose Admin Albuterol 2.5 mg Q4HPRN PRN NEB 10/10/24 13:15 10/11/24 10:07 2.5 MG Ipratropium [place] 0.5 mg Q4HPRN PRN NEB 10/10/24 13:15 10/11/24 10:07 0.5 MG Vancomycin HCl 0 ml @ 0 mls/hr UD IV 10/10/24 13:15 Al Hydrox/Mg Hydrox/Simethicone 30 ml Q6HP PRN PO 10/10/24 13:15 Docusate Sodium 100 mg BIDPRN PRN PO 10/10/24 13:15 Acetaminophen 650 mg Q6HP PRN PO 10/10/24 13:15 Acetaminophen/ Hydrocodone Bitart 1 tab Q4HP PRN PO 10/10/24 13:15 10/11/24 01:08 1 TAB Ondansetron HCl 4 mg Q4HP PRN IV 10/10/24 13:15 Morphine Sulfate 2 mg Q4HPRN PRN IV 10/10/24 13:15 10/11/24 09:11 2 MG Sodium Chloride 1,000 ml @ 120 mls/hr Q8H20M IV 10/10/24 16:45 10/11/24 13:37 120 MLS/HR Vancomycin HCl 750 mg/Dextrose 100 ml @ 100 mls/hr Q20H IV 10/11/24 11:00 10/11/24 11:10 100 MLS/HR Piperacillin Sod/ Tazobactam Sod 100 ml @ 100 mls/hr Q8H IV 10/11/24 06:00 10/11/24 14:49 100 MLS/HR Heparin Sodium/ Dextrose 250 ml @ 8 mls/hr Q24H IV 10/11/24 02:00 10/11/24 02:06 8 MLS/HR objective Gen.: Patient lying in bed in no apparent distress. On supplemental oxygen. Head: Normocephalic, atraumatic. Eyes: EOMI/PERRLA. Ears: Normal hearing. Normal anatomy. Neck/trachea: Trachea midline, supple. Nose: Normal external anatomy. Mouth: Moist mucous membranes. Chest: Decreased air entry bilaterally. No wheezing or rhonchi. Cardiovascular: Positive S1, positive S2. Regular rate and rhythm. Abdomen: Positive bowel sounds in all 4 quadrants. Soft, non-tender, non- distended. : Deferred. Rectal: Deferred. Skin: Warm, dry. Intact. Extremities: 2+ radial pulses bilaterally. No lower extremity edema. Neuro: Awake, alert, oriented x3. No gross motor or sensory deficits. Cranial nerves II through XII intact. Gait not assessed. laboratory and microbiology Laboratory Tests 10/11/24 04:54 Test 10/11/24 04:54 Range/Units Serum Glucose 121 H 74-106 mg/dL Assessment/Plan Impression: Acute hypoxic respiratory failure On noninvasive positive pressure ventilation Shock, likely septic Leukocytosis Obesity, BMI 30.3 Pulmonary edema Pneumonitis, likely Gram-negative Elevated troponin Lactic acidosis Events: Off BiPAP On supplemental oxygen, 3 LPM NC Taper O2 as tolerated Head of bed elevation Aspiration precautions Pain control Avoid oversedation Continue bronchodilators Continue antibiotics Heparin drip. Monitor renal function. Monitor electrolytes. Supplement as necessary. Monitor ins and outs. Elevated troponin Follow up Cardiology recs.. Off pressors, hemodynamically stable. Breathing comfortably. Patient is doing better She is stable from the pulmonary standpoint for downgrade to NATACHA. Labs and imaging reviewed. Rest of plan as noted below. Plan: CT of the chest report and images reviewed from February 14, 2024. No acute pulmonary embolism. Ectasia of the ascending thoracic aorta. Dilated main pulmonary artery suggestive of pulmonary arterial hypertension. Reviewed echo as noted below from February 15, 2024. Normal right ventricular systolic function. 10/10/24 - I presented to the bedside emergently. I was camera port out stat consult for central line placement and possible left pleural effusion. Limited chest ultrasound was performed that demonstrated hepatocyte lung consistent with lung consolidation. Off BiPAP On supplemental oxygen, 3 LPM NC Taper O2 as tolerated Off pressors, hemodynamically stable. Continue broad-spectrum antibiotics Follow up cultures. Diurese to euvolemia with Lasix Monitor ins and outs. Monitor renal function. Monitor electrolytes. Supplement as necessary. Elevated troponin Follow up Cardiology recommendations Echo report reviewed from February 15, 2024: Left ventricular ejection fraction 50%. Grade 1 diastolic dysfunction. Normal right ventricular systolic function. BNP within normal limits. Elevated lactic acid level Tapering down with IV fluid hydration Avoid volume overload DVT prophylaxis Updated daughter at bedside. All questions were answered in detail on to her satisfaction. Condition: Critical Prognosis: Poor given multiple comorbidities. Rest of plan per hospitalist and other consultants. A total of 35 minutes of critical care time was spent reviewing the patient record, examining the patient, making a diagnostic and therapeutic plan, discussing this plan with the medical personnel, following up on diagnostic studies and following the patient for clinical stability excluding any and all procedures. At least 50% of this time was spent in direct, [id number] contact. Thank you Dr. Bustos for allowing me to participate in this patient's care. Further recommendations will depend on patient's clinical course. Please do not hesitate to contact me if you have any questions or concerns. This medical document was created using an electronic medical record system with [employer] dictation system. Although this document has been carefully reviewed, there may still be some phonetic and typographical errors. These areas are purely typographical due to imperfections of the software programs, and do not reflect any compromise in the patient's medical care. Plan discussed with: Other (ED SUHA Cornell/[place]) Critical Care Time(min): 35 VERONICA GILMAN MD Oct 11, 2024 15:53
[2024-10-11] MEDS ORDERED: IBUP-1454 PO (18:06)
--- NOTE | 2024-10-11 18:36 | DVHINCON2 ---
DATE OF CONSULTATION: 10/11/2024 HISTORY OF PRESENT ILLNESS: A 74-year-old lady, comes in with a history of congestive heart failure and shortness of breath. She was found to be short of breath. She is a very poor historian and does not contribute much to her history of present illness or past medical history. Most of the information was taken from the old records. She states she was having shortness of breath, but feels better now. Does not recall if she was having chest pain. The patient was on a BiPAP machine upon admission, but she is now on 4 liters, breathing better. She does have a history of arthritis, congestive heart failure, hyperlipidemia, hypertension and asthma. There was a note from the nurse stating that Dr. Palmer, a steel tester came in and was to do a thoracentesis; however, it appears that this was canceled and the patient is being treated medically. The patient denies any history significant for active chest pain at this time. FAMILY HISTORY: Significant for CAD. Mother of breast cancer. ALLERGIES: TO PENICILLIN, CEPHALOSPORINS. HOME MEDICATIONS: Listed and include cyclobenzaprine, ____ pantoprazole, albuterol, gabapentin, atenolol, losartan and prednisone for unknown reasons. REVIEW OF SYSTEMS: Otherwise noncontributory with the exception of that noted above and difficult to obtain. PHYSICAL EXAMINATION: VITAL SIGNS: Her blood pressure is 99/62 with a respiratory rate of ____ pulse of 70. HEENT: Unremarkable. Orally well hydrated. Trachea central. NECK: Supple. Thyroid is not palpable. She has facies of a cushingoid nature. Ecchymosis in her neck and arms, presumably from steroids. There is mild jugular venous distention, no bruits. LUNGS: Revealed diminished air entry. HEART: Reveals a regular S1, S2. ABDOMEN: Unremarkable. EXTREMITIES: Revealed 1 to 2+ edema. NEUROLOGIC: Intact. INTEGUMENTARY: Normal. LABORATORY DATA: WBC count 17,000, hemoglobin and hematocrit of 9 and 31 respectively. Neutrophils are elevated. Chemistry panel shows a normal sodium, potassium, chloride and CO2. Her BUN 29, creatinine is 2.06. Serum glucose is 121. Lactic acid is 2.6. Troponin level is 806. B-type natriuretic peptide is 77. EKG shows sinus rhythm, normal EKG. Chest x-ray shows ____ decreased lung volumes with increased multifocal airspace disease. CT of the abdomen and pelvis is for the most part unremarkable. There is what appears to be a moderate mixed density pericardial effusion with prominent appearance of the ascending aorta measuring 4.9 cm. Possible left-sided pleural effusions on x-ray as well. IMPRESSION: Noted history of hypertension, asthma, history of recently documented pleural and pericardial effusion. No evidence for tamponade at this time. Previous echocardiogram shows normal LV function. Doubt systolic dysfunction contributing to congestive heart failure, possibly diastolic dysfunction and/or pericardial effusion contributing to symptomatology. Noted history of hypertension with no significant hypotension at this time. RECOMMENDATIONS: We will obtain echocardiogram to determine if the pericardial effusion is significant. We will also continue supportive medical management at this time with bronchodilators and antibiotics if needed for possible sepsis contributing to lactic acidosis. MD KIMO Major/MERI/TIMOTEO TID: [id number] RECEIPT: [id number]
[2024-10-11 21:32] LABS: INR 1.25 (0.9-1.15); Partial Thromboplastin Time 49.8 SEC (24.5-34.5)
[2024-10-12] VITALS (10 sets, daily range): BP systolic 83–154; BP diastolic 50–69; PULSE 55–85; RESP 16–20; TEMP 97.3–98.2; O2SAT 93–99
[2024-10-12] MEDS: ACETAMINOPHEN 325 MG TAB PO PRN (00:58)
[2024-10-12 06:12] LABS: Basophils # (auto) 0 10 ^3/uL (0-0.2); Eosinophils # (auto) 0 10 ^3/uL (0-0.8); Eosinophils % (auto) 0.1 % (0.0-7.0); Hemoglobin 8.4 g/dL (12.2-16.2); Lymphocytes # (auto) 1.1 10 ^3/uL (0.4-5.4); Nucleated Red Blood Cells % 0.1 %; Platelet Count (auto) 203 10^3/uL (140-450)
[2024-10-12 06:15] LABS: Basophils % (auto) 0.2 % (0.0-2.0); Hematocrit 26.5 % (36.0-46.0); Lymphocytes % (auto) 6.9 % (10.0-50.0); Mean Corpuscular Hemoglobin 29.1 pg (28.0-32.0); Mean Corpuscular Hgb Conc. 31.9 g/dL (32.0-36.0); Mean Corpuscular Volume 91.3 fL (80.0-100.0); Monocytes # (auto) 0.6 10 ^3/uL (0-1.3); Monocytes % (auto) 3.7 % (0.0-12.0); Neutrophils # (auto) 14.2 10 ^3/uL (1.6-8.6); Neutrophils % (auto) 89.1 % (37.0-80.0); Red Cell Distribution Width 19.9 % (11.8-14.3); White Blood Cell 15.9 10^3/uL (4.4-10.8)
[2024-10-12 06:27] LABS: Anion Gap 12 (5-15); Carbon Dioxide 26 mmol/L (20-31); Chloride 101 mmol/L (98-107); Potassium 3.9 mmol/L (3.5-5.1); Sodium 139 mmol/L (136-145)
[2024-10-12 06:28] LABS: Calcium 8.7 mg/dL (8.7-10.4)
[2024-10-12 06:29] LABS: INR 1.23 (0.9-1.15); Partial Thromboplastin Time 55.4 SEC (24.5-34.5); Prothrombin Time 12.8 sec (9.3-11.8)
[2024-10-12 06:33] LABS: BUN/Creatinine Ratio 10.1 (10.0-20.0)
[2024-10-12 06:35] LABS: Blood Urea Nitrogen 36 mg/dL (9-23); Glucose 108 mg/dL (74-106)
[2024-10-12 08:06] LABS: Complement C3 82 mg/dL (82-167)
[2024-10-12 09:06] LABS: Anti-Centromere B Antibody <0.2 AI (0.0-0.9); Anti-Jo-1 Antibody <0.2 AI (0.0-0.9); Anti-dsDNA Antibody <1 IU/mL (0-9); Antichromatin Antibody <0.2 AI (0.0-0.9); Antiscleroderma-70 Antibody <0.2 AI (0.0-0.9); RNP Antibody 0.2 AI (0.0-0.9); Sjogren's Anti-SS-A Antibody <0.2 AI (0.0-0.9); Sjogren's Anti-SS-B Antibody <0.2 AI (0.0-0.9); Smith Antibody <0.2 AI (0.0-0.9)
[2024-10-12 11:06] LABS: Urine Bacteria MOD /hpf (None Seen); Urine Blood 3+ /uL (Negative); Urine Clarity Ex.Turbid (Clear); Urine Color DARK YELLOW (Yellow); Urine Mucus FEW (None Seen); Urine Protein, UAD 2+ (Negative); Urine Specific Gravity 1.011 (1.001-1.035); Urine Urobilinogen Normal (Negative); Urine WBC 217 /hpf (0 - 5); Urine pH 5.5 (5.0-9.0)
[2024-10-12 12:28] LABS: INR 1.14 (0.9-1.15); Partial Thromboplastin Time 27.3 SEC (24.5-34.5)
[2024-10-12] MEDS: HEPARIN SODIUM (PORCINE) 5000 UNITS/ML 1ML VIAL IV ONE (13:15)
[2024-10-12] MEDS: HEPARIN DRIP/D5W 100UNITS/ML 250 ML IV SCH ×2 (13:18→21:46)
--- NOTE | 2024-10-12 13:18 | DVH ---
INDICATION: galina TECHNIQUE: Multiple real-time sonographic images of the kidneys and bladder were obtained. COMPARISON: CT abdomen and pelvis 10/11/2024 FINDINGS: The right kidney measures 10.7 cm in length, which is normal in size. There is normal echogenicity of the right kidney. No hydronephrosis. The left kidney measures 9.5 cm in length, which is normal in size. There is normal echogenicity of t he left kidney. No hydronephrosis. Limited evaluation of the urinary bladder due to inadequate distention with Le catheter in place. IMPRESSION: Normal sonographic appearance of the kidneys. No hydronephrosis. Limited evaluation of the urinary bladder due to inadequate distention with Le catheter in place.
--- NOTE | 2024-10-12 13:36 | DVHPN2 ---
Progress Note - Dictate Date Seen: Oct 12, 2024 Medical Necessity Reason Pt with a Central, PICC or Fol: Yes The following are medically ne: Woodward Catheter Reason for woodward catheter: Strict I&O Subjective noted hypotension vital signs Vital Sign Date Time Temp Pulse Resp B/P (MAP) Pulse Ox O2 Delivery O2 Flow Rate FiO2 10/12/24 09:00 97.5 55 18 88/56 (67) 97 97.5 10/12/24 08:00 Nasal Cannula* 3 32 Total Intake and Output 10/11/24 10/11/24 10/12/24 14:59 22:59 06:59 Intake Total 384 ml 388 ml 1000 ml Output Total 50 ml Balance 384 ml 388 ml 950 ml medications Current Medications Medications Dose Ordered Sig/Lisa Route Start Time Stop Time Status Last Admin Dose Admin Albuterol 2.5 mg Q4HPRN PRN NEB 10/10/24 13:15 10/11/24 10:07 2.5 MG Ipratropium [place] 0.5 mg Q4HPRN PRN NEB 10/10/24 13:15 10/11/24 10:07 0.5 MG Al Hydrox/Mg Hydrox/Simethicone 30 ml Q6HP PRN PO 10/10/24 13:15 Docusate Sodium 100 mg BIDPRN PRN PO 10/10/24 13:15 Acetaminophen 650 mg Q6HP PRN PO 10/10/24 13:15 10/12/24 00:58 650 MG Acetaminophen/ Hydrocodone Bitart 1 tab Q4HP PRN PO 10/10/24 13:15 10/11/24 01:08 1 TAB Ondansetron HCl 4 mg Q4HP PRN IV 10/10/24 13:15 Morphine Sulfate 2 mg Q4HPRN PRN IV 10/10/24 13:15 10/11/24 09:11 2 MG Sodium Chloride 1,000 ml @ 120 mls/hr Q8H20M IV 10/10/24 16:45 10/11/24 13:37 120 MLS/HR Piperacillin Sod/ Tazobactam Sod 100 ml @ 25 mls/hr Q12H IV 10/12/24 18:00 Heparin Sodium/ Dextrose 250 ml @ 13 mls/hr [id number] IV 10/12/24 13:15 10/12/24 13:18 13 MLS/HR objective Elderly female Appears ill appears stated age Has shortness of breath Engorged neck veins Large abdomen Multiple bruises over the bilateral upper and lower extremities Woodward catheter without urine output laboratory and microbiology Laboratory Tests 10/12/24 04:34 Test 10/12/24 04:34 Range/Units Serum Glucose 108 H 74-106 mg/dL Assessment/Plan Acute kidney injury hemodynamically mediated in setting of hypotension plus- minus cardiorenal syndrome Diastolic heart failure Chronic kidney disease stage 2 COPD Coronary artery disease History of DVT/PE Initially presented in shock requiring pressors now improved Recommend maintain mean arterial pressure greater than 65 Echocardiogram pending Currently patient is on a heparin drip if EF low consider ionotrope given low HR Cardiology consultation , imaging reported possible pericardial effusion renal function continues to decline Dietary Evaluation Review Comments: 1) Consider a Cardiac diet 2) Consider MALATHI BID for wound 3) Continue current plan of care Expected Outcomes/Goals: 1) F/U in 3-5 days Plan discussed with: Patient LENA RAMIREZ MD Oct 12, 2024 13:35
--- NOTE | 2024-10-12 17:28 | DVHPN2 ---
Progress Note - Dictate Date Seen: Oct 12, 2024 Medical Necessity Reason Pt with a Central, PICC or Fol: No The following are medically ne: Woodward Catheter Reason for woodward catheter: Strict I&O Subjective States her breathing is improved. Denies any chest pain. No other complaints. vital signs Vital Sign Date Time Temp Pulse Resp B/P (MAP) Pulse Ox O2 Delivery O2 Flow Rate FiO2 10/12/24 16:59 97.6 85 18 154/69 (97) 97 97.6 10/12/24 10:05 Nasal Cannula 2.0 10/12/24 10:05 28 Total Intake and Output 10/11/24 10/11/24 10/12/24 15:00 23:00 07:00 Intake Total 384 ml 380 ml 1000 ml Output Total 50 ml Balance 384 ml 380 ml 950 ml medications Current Medications Medications Dose Ordered Sig/Lisa Route Start Time Stop Time Status Last Admin Dose Admin Albuterol 2.5 mg Q4HPRN PRN NEB 10/10/24 13:15 10/11/24 10:07 2.5 MG Ipratropium [place] 0.5 mg Q4HPRN PRN NEB 10/10/24 13:15 10/11/24 10:07 0.5 MG Al Hydrox/Mg Hydrox/Simethicone 30 ml Q6HP PRN PO 10/10/24 13:15 Docusate Sodium 100 mg BIDPRN PRN PO 10/10/24 13:15 Acetaminophen 650 mg Q6HP PRN PO 10/10/24 13:15 10/12/24 00:58 650 MG Acetaminophen/ Hydrocodone Bitart 1 tab Q4HP PRN PO 10/10/24 13:15 10/12/24 16:18 1 TAB Ondansetron HCl 4 mg Q4HP PRN IV 10/10/24 13:15 Morphine Sulfate 2 mg Q4HPRN PRN IV 10/10/24 13:15 10/11/24 09:11 2 MG Sodium Chloride 1,000 ml @ 120 mls/hr Q8H20M IV 10/10/24 16:45 10/11/24 13:37 120 MLS/HR Piperacillin Sod/ Tazobactam Sod 100 ml @ 25 mls/hr Q12H IV 10/12/24 18:00 Heparin Sodium/ Dextrose 250 ml @ 13 mls/hr [id number] IV 10/12/24 13:15 10/12/24 13:18 13 MLS/HR Dopamine HCl/ Dextrose 250 ml @ 5.73 mls/hr Q24H IV 10/12/24 16:15 objective Comfortable in bed alert awake oriented to place and person. Daughter at bedside. HEENT neck supple no JVD. Heart regular rate and rhythm S1 and S2. Lungs without rales wheezes. Abdomen soft positive bowel sounds nontender. Extremities positive edema around the ankles. laboratory and microbiology Laboratory Tests 10/12/24 04:34 Test 10/12/24 04:34 Range/Units Serum Glucose 108 H 74-106 mg/dL Assessment/Plan Continued treat pneumonia with antibiotics. No significant urine output. Creatinine has trended up. Discussed with the cut roll machine operator. Possible need for dialysis. Also discussed with the patient and daughter at bedside regarding this. Meantime encouraged activity and physical therapy. Otherwise continue rest of supportive care and treatment as she is on. Given her blood cultures negative for growth I will DC vancomycin due to nephrotoxicity. Continue Zosyn. Follow clinical management per clinical course. Problems(with codes): (1) Hypotension (2) History of hypertension (3) Pleural effusion due to CHF (congestive heart failure) (4) Acute on chronic heart failure (5) Acute respiratory failure (6) Leukocytosis Dietary Evaluation Review Comments: 1) Consider a Cardiac diet 2) Consider MALATHI BID for wound 3) Continue current plan of care Expected Outcomes/Goals: 1) F/U in 3-5 days Plan discussed with: Patient, Daughter, Other ELODIA CEBALLOS MD Oct 12, 2024 17:28
[2024-10-12] MEDS: PIPERACILLIN-TAZOB 3.375GM 100 ML IV SCH (17:45)
[2024-10-12] MEDS: DOPamine 1600MCG/ML D5W 250 ML IV SCH (17:58)
[2024-10-12 20:18] LABS: INR 1.13 (0.9-1.15); Prothrombin Time 11.9 sec (9.3-11.8)
[2024-10-12] MEDS: BUMETANIDE 2.5mg/10ml (0.25 mg/ml) INJ IV SCH (20:24)
[2024-10-12 20:26] LABS: Partial Thromboplastin Time 101.6 SEC (24.5-34.5)
[2024-10-12] MEDS ORDERED: HEPARIN DRIP/D5W 100UNITS/ML 250 ML IV SCH (20:45)
[2024-10-13] VITALS (11 sets, daily range): BP systolic 125–149; BP diastolic 69–76; PULSE 65–70; RESP 17–20; TEMP 97.7–98; O2SAT 96–99
[2024-10-13 07:08] LABS: Basophils # (auto) 0.1 10 ^3/uL (0-0.2); Basophils % (auto) 0.4 % (0.0-2.0); Eosinophils # (auto) 0 10 ^3/uL (0-0.8); Eosinophils % (auto) 0.3 % (0.0-7.0); Hematocrit 27.5 % (36.0-46.0); Hemoglobin 8.8 g/dL (12.2-16.2); Lymphocytes # (auto) 0.8 10 ^3/uL (0.4-5.4); Lymphocytes % (auto) 6.3 % (10.0-50.0); Mean Corpuscular Hemoglobin 29.1 pg (28.0-32.0); Mean Corpuscular Hgb Conc. 31.9 g/dL (32.0-36.0); Mean Corpuscular Volume 91.3 fL (80.0-100.0); Monocytes # (auto) 0.5 10 ^3/uL (0-1.3); Monocytes % (auto) 3.6 % (0.0-12.0); Neutrophils # (auto) 11.4 10 ^3/uL (1.6-8.6); Neutrophils % (auto) 89.4 % (37.0-80.0); Nucleated Red Blood Cells % 0.1 %; Platelet Count (auto) 204 10^3/uL (140-450); Red Blood Cells 3.02 10^6/uL (4.0-5.20); Red Cell Distribution Width 19.4 % (11.8-14.3); White Blood Cell 12.7 10^3/uL (4.4-10.8)
[2024-10-13 07:20] LABS: INR 1.08 (0.9-1.15); Partial Thromboplastin Time 46.2 SEC (24.5-34.5); Prothrombin Time 11.4 sec (9.3-11.8)
[2024-10-13 07:21] LABS: Chloride 99 mmol/L (98-107); Potassium 4.6 mmol/L (3.5-5.1); Sodium 135 mmol/L (136-145)
[2024-10-13 07:22] LABS: Anion Gap 10 (5-15); Calcium 8.8 mg/dL (8.7-10.4); Carbon Dioxide 26 mmol/L (20-31)
[2024-10-13 07:27] LABS: BUN/Creatinine Ratio 9.3 (10.0-20.0); Glucose 104 mg/dL (74-106)
[2024-10-13 07:34] LABS: Blood Urea Nitrogen 45 mg/dL (9-23)
[2024-10-13] MEDS: HEPARIN DRIP/D5W 100UNITS/ML 250 ML IV SCH (09:18)
[2024-10-13] MEDS: SODIUM CHLORIDE 0.9% 1,000 ML IV SCH (13:19)
--- NOTE | 2024-10-13 14:59 | DVHPN2 ---
Progress Note - Dictate Date Seen: Oct 13, 2024 Medical Necessity Reason Pt with a Central, PICC or Fol: Yes The following are medically ne: Woodward Catheter Reason for woodward catheter: Strict I&O Subjective noted hypotension on dopamine last 24hrs but currently anuric vital signs Vital Sign Date Time Temp Pulse Resp B/P (MAP) Pulse Ox O2 Delivery O2 Flow Rate FiO2 10/13/24 13:00 98.0 67 18 148/75 (99) 98 98.0 10/13/24 08:29 Nasal Cannula* 3 32 Total Intake and Output 10/12/24 10/12/24 10/13/24 15:00 23:00 07:00 Intake Total 100 ml 1045.73 ml 200 ml Output Total 25 ml Balance 100 ml 1045.73 ml 175 ml medications Current Medications Medications Dose Ordered Sig/Lisa Route Start Time Stop Time Status Last Admin Dose Admin Albuterol 2.5 mg Q4HPRN PRN NEB 10/10/24 13:15 10/11/24 10:07 2.5 MG Ipratropium [place] 0.5 mg Q4HPRN PRN NEB 10/10/24 13:15 10/11/24 10:07 0.5 MG Al Hydrox/Mg Hydrox/Simethicone 30 ml Q6HP PRN PO 10/10/24 13:15 Docusate Sodium 100 mg BIDPRN PRN PO 10/10/24 13:15 Acetaminophen 650 mg Q6HP PRN PO 10/10/24 13:15 10/13/24 05:27 650 MG Acetaminophen/ Hydrocodone Bitart 1 tab Q4HP PRN PO 10/10/24 13:15 10/13/24 09:14 1 TAB Ondansetron HCl 4 mg Q4HP PRN IV 10/10/24 13:15 Morphine Sulfate 2 mg Q4HPRN PRN IV 10/10/24 13:15 10/11/24 09:11 2 MG Piperacillin Sod/ Tazobactam Sod 100 ml @ 25 mls/hr Q12H IV 10/12/24 18:00 10/13/24 05:27 25 MLS/HR Dopamine HCl/ Dextrose 250 ml @ 5.73 mls/hr Q24H IV 10/12/24 16:15 10/12/24 17:58 5.73 MLS/HR Bumetanide 2.5 mg BIDD IV 10/12/24 19:15 10/13/24 05:31 2.5 MG Heparin Sodium/ Dextrose 250 ml @ 12 mls/hr [id number] IV 10/13/24 08:15 10/13/24 09:18 12 MLS/HR objective Elderly female Appears ill appears stated age Has shortness of breath Engorged neck veins Large abdomen Multiple bruises over the bilateral upper and lower extremities Woodward catheter without urine output laboratory and microbiology Laboratory Tests 10/13/24 05:35 Test 10/13/24 05:35 Range/Units Serum Glucose 104 74-106 mg/dL Assessment/Plan Acute kidney injury hemodynamically mediated in setting of hypotension +/- cardiorenal syndrome Diastolic heart failure Chronic kidney disease stage 2 COPD Coronary artery disease History of DVT/PE Initially presented in shock requiring pressors now off Recommend maintain mean arterial pressure greater than 65 Echocardiogram results Currently patient is on a heparin drip IV diuretics dopamine drip discontinue fluids Cardiology consultation , imaging reported possible pericardial effusion not previously seen in echo 01/2024 renal function continues to decline, I explained risk and benefits of acute hemodialysis family is in agreement for use if needed Dietary Evaluation Review Comments: 1) Consider a Cardiac diet 2) Consider MALATHI BID for wound 3) Continue current plan of care Expected Outcomes/Goals: 1) F/U in 3-5 days Plan discussed with: Patient LENA RAMIREZ MD Oct 13, 2024 14:59
--- NOTE | 2024-10-13 15:20 | DVHPN2 ---
Progress Note - Dictate Date Seen: Oct 13, 2024 Medical Necessity Reason Pt with a Central, PICC or Fol: Yes The following are medically ne: Woodward Catheter Reason for woodward catheter: Strict I&O Subjective In bed comfortable. Denies any complaints of chest pain no shortness a breath. Family is at bedside. vital signs Vital Sign Date Time Temp Pulse Resp B/P (MAP) Pulse Ox O2 Delivery O2 Flow Rate FiO2 10/13/24 13:00 98.0 67 18 148/75 (99) 98 98.0 10/13/24 08:29 Nasal Cannula* 3 32 Total Intake and Output 10/12/24 10/12/24 10/13/24 15:00 23:00 07:00 Intake Total 100 ml 1045.73 ml 200 ml Output Total 25 ml Balance 100 ml 1045.73 ml 175 ml medications Current Medications Medications Dose Ordered Sig/Lisa Route Start Time Stop Time Status Last Admin Dose Admin Albuterol 2.5 mg Q4HPRN PRN NEB 10/10/24 13:15 10/11/24 10:07 2.5 MG Ipratropium [place] 0.5 mg Q4HPRN PRN NEB 10/10/24 13:15 10/11/24 10:07 0.5 MG Al Hydrox/Mg Hydrox/Simethicone 30 ml Q6HP PRN PO 10/10/24 13:15 Docusate Sodium 100 mg BIDPRN PRN PO 10/10/24 13:15 Acetaminophen 650 mg Q6HP PRN PO 10/10/24 13:15 10/13/24 05:27 650 MG Acetaminophen/ Hydrocodone Bitart 1 tab Q4HP PRN PO 10/10/24 13:15 10/13/24 09:14 1 TAB Ondansetron HCl 4 mg Q4HP PRN IV 10/10/24 13:15 Morphine Sulfate 2 mg Q4HPRN PRN IV 10/10/24 13:15 10/11/24 09:11 2 MG Piperacillin Sod/ Tazobactam Sod 100 ml @ 25 mls/hr Q12H IV 10/12/24 18:00 10/13/24 05:27 25 MLS/HR Dopamine HCl/ Dextrose 250 ml @ 5.73 mls/hr Q24H IV 10/12/24 16:15 10/12/24 17:58 5.73 MLS/HR Bumetanide 2.5 mg BIDD IV 10/12/24 19:15 10/13/24 05:31 2.5 MG Heparin Sodium/ Dextrose 250 ml @ 12 mls/hr [id number] IV 10/13/24 08:15 10/13/24 09:18 12 MLS/HR objective Comfortable in bed alert awake oriented to place and person. Daughter at bedside. HEENT neck supple no JVD. Heart regular rate and rhythm S1 and S2. Lungs without rales wheezes. Abdomen soft positive bowel sounds nontender. Extremities positive edema around the ankles. laboratory and microbiology Laboratory Tests 10/13/24 05:35 Test 10/13/24 05:35 Range/Units Serum Glucose 104 74-106 mg/dL Assessment/Plan Her urine culture preliminary showing Gram-negative rods. Currently she is on Zosyn antibiotic which will be continued till final isn't available. Blood pressure is stable. White blood cell count on the labs has improved. Kidney function slightly worsened. Patient is started on renal dose dopamine by nephrology. For now the plan is to continue present management including IV heparin and follow the echocardiogram report tomorrow. Repeat the labs. Troponin in the morning. Encouraged physical therapy. Otherwise follow up with the pain med for clinical course and recommendations of the consultants. Discussed with the patient as well as family and her daughter on the phone regarding multiple medical conditions/diagnosis and possible need for dialysis. Patient understands this and she also med wishes to be DNR should something happened to her while she is in the hospital. This is also discussed with the family at bedside as well as the nurse at bedside. Problems(with codes): (1) Acute on chronic heart failure (2) Pleural effusion due to CHF (congestive heart failure) (3) History of hypertension (4) Acute respiratory failure (5) Leukocytosis (6) Pleural effusion, left (7) Hypotension (8) Sepsis Dietary Evaluation Review Comments: 1) Consider a Cardiac diet 2) Consider MALATHI BID for wound 3) Continue current plan of care Expected Outcomes/Goals: 1) F/U in 3-5 days Plan discussed with: Patient, Daughter, Other ELODIA CEBALLOS MD Oct 13, 2024 15:20
[2024-10-13 17:06] LABS: INR 1.06 (0.9-1.15); Partial Thromboplastin Time 56.1 SEC (24.5-34.5); Prothrombin Time 11.2 sec (9.3-11.8)
[2024-10-13 22:27] LABS: INR 1.08 (0.9-1.15); Partial Thromboplastin Time 53.5 SEC (24.5-34.5); Prothrombin Time 11.4 sec (9.3-11.8)
[2024-10-14] VITALS (10 sets, daily range): BP systolic 149–191; BP diastolic 78–88; PULSE 62–115; RESP 16–20; TEMP 97.2–98; O2SAT 92–100
--- NOTE | 2024-10-14 07:02 | DVH ---
CHEST RADIOGRAPH Indication: pneumonia Technique: Single frontal view of the chest was obtained Comparison: XY CHEST PORTABLE on DOS: 10/11/24, XY CHEST PORTABLE on DOS: 10/10/24, XY CHEST PORTABLE on DOS: 10/10/24, XY CHEST PORTABLE on DOS: 02/10/24, CXRP on DOS: 03/25/22, XY CHEST PORTABLE on DOS: 10/11/24 FINDINGS: Lines and Tubes: Left central venous catheter is unchanged. Lungs: Multifocal airspace disease, increased. Lower lung volumes. Pleura: Small left pleural effusion. No pneumothorax. Cardiomediastinal contours: Cardiomegaly Bones: Unremarkable IMPRESSION: Lower lung volumes and increased multifocal airspace disease.
[2024-10-14 08:00] LABS: Anion Gap 12 (5-15); Carbon Dioxide 24 mmol/L (20-31)
[2024-10-14 08:02] LABS: Calcium 8.9 mg/dL (8.7-10.4)
[2024-10-14 08:06] LABS: Basophils # (auto) 0 10 ^3/uL (0-0.2); Basophils % (auto) 0.3 % (0.0-2.0); Eosinophils # (auto) 0.1 10 ^3/uL (0-0.8); Eosinophils % (auto) 0.6 % (0.0-7.0); Glucose 96 mg/dL (74-106); Hematocrit 28.8 % (36.0-46.0); Hemoglobin 9.3 g/dL (12.2-16.2); Lymphocytes % (auto) 7.9 % (10.0-50.0); Mean Corpuscular Hgb Conc. 32.2 g/dL (32.0-36.0); Mean Corpuscular Volume 90.1 fL (80.0-100.0); Monocytes # (auto) 0.8 10 ^3/uL (0-1.3); Monocytes % (auto) 6.4 % (0.0-12.0); Neutrophils # (auto) 10.4 10 ^3/uL (1.6-8.6); Neutrophils % (auto) 84.8 % (37.0-80.0); Nucleated Red Blood Cells % 0.1 %; Platelet Count (auto) 245 10^3/uL (140-450); Red Cell Distribution Width 19.2 % (11.8-14.3); White Blood Cell 12.3 10^3/uL (4.4-10.8)
[2024-10-14 08:07] LABS: INR 1.05 (0.9-1.15); Partial Thromboplastin Time 51.8 SEC (24.5-34.5); Prothrombin Time 11.1 sec (9.3-11.8)
[2024-10-14 08:14] LABS: Blood Urea Nitrogen 54 mg/dL (9-23); Chloride 96 mmol/L (98-107); Potassium 5.1 mmol/L (3.5-5.1); Sodium 132 mmol/L (136-145)
[2024-10-14] MEDS: SODIUM ZIRCONIUM CYCL 10 GM PAK PO SCH (09:26)
[2024-10-14] MEDS: BUMETANIDE 2.5mg/10ml (0.25 mg/ml) INJ IV SCH (11:52)
--- NOTE | 2024-10-14 12:57 | DVHPN2 ---
Progress Note Date Seen: Oct 14, 2024 Medical Necessity Reason Pt with a Central, PICC or Fol: Yes The following are medically ne: Woodward Catheter Reason for woodward catheter: Strict I&O Subjective Patient reports: No new complaints Other Systems: Patient seen and examined by myself on follow-up today Objective vital signs Vital Sign Date Time Temp Pulse Resp B/P (MAP) Pulse Ox O2 Delivery O2 Flow Rate FiO2 10/14/24 11:52 158/86 10/14/24 09:00 98.0 68 18 99 98.0 10/14/24 08:45 Nasal Cannula* 3 32 Total Intake and Output 10/13/24 10/13/24 10/14/24 15:00 23:00 07:00 Intake Total 100 ml 581.76 ml 450.76 ml Output Total 30 ml Balance 100 ml 551.76 ml 450.76 ml medications Current Medications Medications Dose Ordered Sig/Lisa Route Start Time Stop Time Status Last Admin Dose Admin Albuterol 2.5 mg Q4HPRN PRN NEB 10/10/24 13:15 10/14/24 08:43 2.5 MG Ipratropium [place] 0.5 mg Q4HPRN PRN NEB 10/10/24 13:15 10/14/24 08:43 0.5 MG Al Hydrox/Mg Hydrox/Simethicone 30 ml Q6HP PRN PO 10/10/24 13:15 Docusate Sodium 100 mg BIDPRN PRN PO 10/10/24 13:15 Acetaminophen 650 mg Q6HP PRN PO 10/10/24 13:15 10/14/24 06:15 650 MG Acetaminophen/ Hydrocodone Bitart 1 tab Q4HP PRN PO 10/10/24 13:15 10/13/24 09:14 1 TAB Ondansetron HCl 4 mg Q4HP PRN IV 10/10/24 13:15 Morphine Sulfate 2 mg Q4HPRN PRN IV 10/10/24 13:15 10/11/24 09:11 2 MG Piperacillin Sod/ Tazobactam Sod 100 ml @ 25 mls/hr Q12H IV 10/12/24 18:00 10/14/24 05:32 25 MLS/HR Dopamine HCl/ Dextrose 250 ml @ 5.73 mls/hr Q24H IV 10/12/24 16:15 10/13/24 18:01 5.73 MLS/HR Zirconium Oxide 10 gm BID PO 10/14/24 10:00 10/14/24 09:26 10 GM Bumetanide 2 mg BIDD IV 10/14/24 11:00 10/14/24 11:52 2 MG Examination: LUNGS:Normal, CVS:Normal, MSK:Normal laboratory and microbiology Laboratory Tests 10/14/24 07:10 Test 10/14/24 07:10 Range/Units Serum Glucose 96 74-106 mg/dL Microbiology Date/Time Source Procedure Growth Status 10/12/24 09:50 Urine - [place] Urine Culture - Preliminary Resulted 10/10/24 11:31 Blood Blood Culture - Preliminary NO GROWTH AFTER 72 HOURS OF INCUBATION. Resulted Problem List/Assessment/Plan Problem List/Assessment/Plan Acute kidney injury hemodynamically mediated in setting of hypotension, although chronic Diastolic heart failure Chronic kidney disease stage 2 , serum creatinine 1.0 on 10/10/2024 COPD NSTEMI History of DVT/PE Recommendations Patient remained oliguric with minimal urine output I discussed acute hemodialysis with the patient her at the bedside patient however currently refusing hemodialysis patient understand the risk associated with her decision Strict I&Os Woodward catheter Avoid nephrotoxic medication Cardiology consult We will continue to follow Plan discussed with: Patient, Spouse My Orders My Orders Orders - DAVIDE NY MD Procedure Category Date Status Time Urine Sodium LAB 10/14/24 Logged 10:52 Urine LAB 10/14/24 Logged Protein/Creatinine Urine Creatinine LAB 10/14/24 Logged 10:52 Bumetanide Injection PHA 10/14/24 In Process (Bumex Injection) 11:00 Dietary Evaluation Review Comments: 1) Consider a Cardiac diet 2) Consider MALATHI BID for wound 3) Continue current plan of care Expected Outcomes/Goals: 1) F/U in 3-5 days DAVIDE NY MD Oct 14, 2024 12:57
[2024-10-14 13:21] LABS: Magnesium 2.4 mg/dL (1.6-2.6)
[2024-10-14 13:40] LABS: Phosphorus 8.5 mg/dL (2.4-5.1)
[2024-10-14 14:06] LABS: Antimyeloperoxidase (MPO) Ab <0.2 units (0.0-0.9); Antiproteinase 3 (PR-3) Ab <0.2 units (0.0-0.9)
[2024-10-14 14:32] LABS: Hepatitis B Surface Antigen Negative (Negative)
[2024-10-14 14:52] LABS: Hepatitis C Antibody Negative (Negative)
--- NOTE | 2024-10-14 15:53 | DVHPN2 ---
Progress Note - Dictate Date Seen: Oct 14, 2024 Medical Necessity Reason Pt with a Central, PICC or Fol: Yes The following are medically ne: Woodward Catheter Reason for woodward catheter: Strict I&O Subjective In bed comfortable. Denies any complaints of chest pain no shortness a breath. is at bedside. vital signs Vital Sign Date Time Temp Pulse Resp B/P (MAP) Pulse Ox O2 Delivery O2 Flow Rate FiO2 10/14/24 13:00 97.8 62 20 149/78 (101) 97 97.8 10/14/24 08:45 Nasal Cannula* 3 32 Total Intake and Output 10/13/24 10/13/24 10/14/24 15:00 23:00 07:00 Intake Total 100 ml 581.76 ml 450.76 ml Output Total 30 ml Balance 100 ml 551.76 ml 450.76 ml medications Current Medications Medications Dose Ordered Sig/Lisa Route Start Time Stop Time Status Last Admin Dose Admin Albuterol 2.5 mg Q4HPRN PRN NEB 10/10/24 13:15 10/14/24 08:43 2.5 MG Ipratropium [place] 0.5 mg Q4HPRN PRN NEB 10/10/24 13:15 10/14/24 08:43 0.5 MG Al Hydrox/Mg Hydrox/Simethicone 30 ml Q6HP PRN PO 10/10/24 13:15 Docusate Sodium 100 mg BIDPRN PRN PO 10/10/24 13:15 Acetaminophen 650 mg Q6HP PRN PO 10/10/24 13:15 10/14/24 06:15 650 MG Acetaminophen/ Hydrocodone Bitart 1 tab Q4HP PRN PO 10/10/24 13:15 10/14/24 12:00 1 TAB Ondansetron HCl 4 mg Q4HP PRN IV 10/10/24 13:15 Morphine Sulfate 2 mg Q4HPRN PRN IV 10/10/24 13:15 10/11/24 09:11 2 MG Piperacillin Sod/ Tazobactam Sod 100 ml @ 25 mls/hr Q12H IV 10/12/24 18:00 10/14/24 05:32 25 MLS/HR Dopamine HCl/ Dextrose 250 ml @ 5.73 mls/hr Q24H IV 10/12/24 16:15 10/13/24 18:01 5.73 MLS/HR Zirconium Oxide 10 gm BID PO 10/14/24 10:00 10/14/24 09:26 10 GM Bumetanide 2 mg BIDD IV 10/14/24 11:00 10/14/24 11:52 2 MG objective Comfortable in bed alert awake oriented to place and person. HEENT neck supple no JVD. Heart regular rate and rhythm S1 and S2. Lungs without rales wheezes. Abdomen soft positive bowel sounds nontender. Extremities positive edema around the ankles. laboratory and microbiology Laboratory Tests 10/14/24 07:10 Test 10/14/24 07:10 Range/Units Serum Glucose 96 74-106 mg/dL Assessment/Plan Patient apparently evaluated by senior sous chef earlier this morning. At that time patient is not sure about undergoing dialysis even though it is recommended. Therefore I have talked with the patient and once again at bedside at length regarding need for dialysis. Patient understands the benefits of hemodialysis versus the risks and wants to undergo hemodialysis at least 2-3 sessions while she was in the hospital to see if her swelling and discomfort will improve. Given her willingness to undergo hemodialysis I will place a interventional radiology consultation for dialysis catheter placement. Meantime continue rest of supportive care and treatment. Follow clinical management per clinical course. Patient/ verbalized understanding of hemodialysis process, catheter insertion and risks benefits and alternatives. They have agreed to undergo hemodialysis given no significant urine output with the worsening kidney function and recommendations from the senior sous chef. Discussed with the nurse as well regarding care plan. Problems(with codes): (1) Acute UTI (urinary tract infection) (2) Acute kidney injury (TRAVIS) with acute tubular necrosis (ATN) (3) Hypotension (4) Pleural effusion due to CHF (congestive heart failure) (5) Acute on chronic heart failure (6) Acute respiratory failure (7) Leukocytosis (8) Pleural effusion, left Dietary Evaluation Review Comments: 1) Consider a Cardiac diet 2) Consider MALATHI BID for wound 3) Continue current plan of care Expected Outcomes/Goals: 1) F/U in 3-5 days Plan discussed with: Patient, Spouse, Other ELODIA CEBALLOS MD Oct 14, 2024 15:53
--- NOTE | 2024-10-14 16:04 | MEDREC ---
[facility] Intervention Section I [facility] Intervention: Deescalate AB based on CS (PLEASE CONSIDER DEESCALATE ANTIBIOTICS BASED ON CULTURE RESULTS ) BASILIA NAVARRETE PHARMACIST Oct 14, 2024 16:04
[2024-10-14 16:06] LABS: Cytoplasmic (C-ANCA) <1:20 titer (Neg:<1:20); Perinuclear (P-ANCA) <1:20 titer (Neg:<1:20)
[2024-10-15] VITALS (16 sets, daily range): BP systolic 105–166; BP diastolic 57–78; PULSE 66–112; RESP 14–21; TEMP 97.5–98.3; O2SAT 92–98
[2024-10-15 00:20] LABS: Urine Amorphous Crystal FEW /hpf (None Seen); Urine Bacteria FEW /hpf (None Seen); Urine Blood 3+ /uL (Negative); Urine Clarity Turbid (Clear); Urine Color Colorless (Yellow); Urine Protein, UAD 2+ (Negative); Urine Specific Gravity 1.012 (1.001-1.035); Urine Urobilinogen Normal (Negative); Urine WBC 45 /hpf (0 - 5); Urine pH 5.5 (5.0-9.0)
[2024-10-15 01:43] LABS: Protein, Urine 183.7 mg/dL (1-14)
[2024-10-15 01:45] LABS: Creatinine, Urine 49.49 mg/dL (30.0-125.0); Urine Protein/Creatinine Ratio 3.71
[2024-10-15 06:36] LABS: Anion Gap 13 (5-15); Carbon Dioxide 24 mmol/L (20-31)
[2024-10-15 06:38] LABS: Chloride 95 mmol/L (98-107); Sodium 132 mmol/L (136-145)
[2024-10-15 06:41] LABS: BUN/Creatinine Ratio 8.9 (10.0-20.0); Glucose 100 mg/dL (74-106)
[2024-10-15 06:42] LABS: Basophils # (auto) 0 10 ^3/uL (0-0.2); Basophils % (auto) 0.3 % (0.0-2.0); Eosinophils # (auto) 0 10 ^3/uL (0-0.8); Eosinophils % (auto) 0.1 % (0.0-7.0); Hematocrit 29.7 % (36.0-46.0); Hemoglobin 9.6 g/dL (12.2-16.2); Lymphocytes # (auto) 0.9 10 ^3/uL (0.4-5.4); Lymphocytes % (auto) 6.2 % (10.0-50.0); Mean Corpuscular Hemoglobin 29.1 pg (28.0-32.0); Mean Corpuscular Hgb Conc. 32.3 g/dL (32.0-36.0); Monocytes # (auto) 1.1 10 ^3/uL (0-1.3); Monocytes % (auto) 7.4 % (0.0-12.0); Neutrophils # (auto) 12.4 10 ^3/uL (1.6-8.6); Nucleated Red Blood Cells % 0.2 %; Platelet Count (auto) 245 10^3/uL (140-450); Red Blood Cells 3.29 10^6/uL (4.0-5.20); Red Cell Distribution Width 19.2 % (11.8-14.3); White Blood Cell 14.4 10^3/uL (4.4-10.8)
[2024-10-15 06:44] LABS: Potassium 5.9 mmol/L (3.5-5.1)
[2024-10-15 06:47] LABS: Blood Urea Nitrogen 62 mg/dL (9-23)
[2024-10-15 06:54] LABS: INR 1.03 (0.9-1.15); Partial Thromboplastin Time 30.5 SEC (24.5-34.5); Prothrombin Time 10.9 sec (9.3-11.8)
[2024-10-15] MEDS ORDERED: DEXTROSE (50%) 50ML SYRG IV ONE (07:15)
[2024-10-15] MEDS ORDERED: InsuLIN REG 1unit/0.01ml Soln (100units/ml) IV ONE (07:15)
[2024-10-15] MEDS ORDERED: CALCIUM GLUC 1,000mg/50ml-NS 50 ML IV ONE (07:15)
--- NOTE | 2024-10-15 10:39 | DVHPN2 ---
Progress Note - Dictate Date Seen: Oct 14, 2024 Medical Necessity Reason Pt with a Central, PICC or Fol: Yes The following are medically ne: Woodward Catheter Reason for woodward catheter: Strict I&O Subjective Patient seen and examined at bedside. Remains on supplemental oxygen Overnight events reviewed. vital signs Vital Sign Date Time Temp Pulse Resp B/P (MAP) Pulse Ox O2 Delivery O2 Flow Rate FiO2 10/15/24 09:15 73 21 135/79 10/15/24 09:00 98.1 97 98.1 10/14/24 20:05 Nasal Cannula 3.0 10/14/24 20:05 32 Total Intake and Output 10/14/24 10/14/24 10/15/24 15:00 23:00 07:00 Intake Total 540 ml 400 ml Output Total 100 ml 10 ml Balance 440 ml 390 ml medications Current Medications Medications Dose Ordered Sig/Lisa Route Start Time Stop Time Status Last Admin Dose Admin Albuterol 2.5 mg Q4HPRN PRN NEB 10/10/24 13:15 10/14/24 08:43 2.5 MG Ipratropium [place] 0.5 mg Q4HPRN PRN NEB 10/10/24 13:15 10/14/24 08:43 0.5 MG Al Hydrox/Mg Hydrox/Simethicone 30 ml Q6HP PRN PO 10/10/24 13:15 Docusate Sodium 100 mg BIDPRN PRN PO 10/10/24 13:15 Acetaminophen 650 mg Q6HP PRN PO 10/10/24 13:15 10/14/24 06:15 650 MG Acetaminophen/ Hydrocodone Bitart 1 tab Q4HP PRN PO 10/10/24 13:15 10/14/24 12:00 1 TAB Ondansetron HCl 4 mg Q4HP PRN IV 10/10/24 13:15 Morphine Sulfate 2 mg Q4HPRN PRN IV 10/10/24 13:15 10/15/24 09:15 2 MG Piperacillin Sod/ Tazobactam Sod 100 ml @ 25 mls/hr Q12H IV 10/12/24 18:00 10/14/24 22:00 25 MLS/HR Dopamine HCl/ Dextrose 250 ml @ 5.73 mls/hr Q24H IV 10/12/24 16:15 12/16/24 16:47 5.73 MLS/HR Zirconium Oxide 10 gm BID PO 10/14/24 10:00 10/14/24 22:00 10 GM Bumetanide 2 mg BIDD IV 10/14/24 11:00 10/15/24 06:38 2 MG Hydralazine HCl 10 mg Q6HP PRN IV 10/14/24 23:15 objective Gen.: Patient lying in bed in no apparent distress. On supplemental oxygen. Head: Normocephalic, atraumatic. Eyes: EOMI/PERRLA. Ears: Normal hearing. Normal anatomy. Neck/trachea: Trachea midline, supple. Nose: Normal external anatomy. Mouth: Moist mucous membranes. Chest: Decreased air entry bilaterally. No wheezing or rhonchi. Cardiovascular: Positive S1, positive S2. Regular rate and rhythm. Abdomen: Positive bowel sounds in all 4 quadrants. Soft, non-tender, non- distended. : Deferred. Rectal: Deferred. Skin: Warm, dry. Intact. Extremities: 2+ radial pulses bilaterally. No lower extremity edema. Neuro: Awake, alert, oriented x3. No gross motor or sensory deficits. Cranial nerves II through XII intact. Gait not assessed. laboratory and microbiology Laboratory Tests 10/15/24 04:55 Test 10/15/24 04:55 Range/Units Serum Glucose 100 74-106 mg/dL Assessment/Plan Impression: Acute hypoxic respiratory failure Shock, likely septic Leukocytosis Obesity, BMI 30.3 Pulmonary edema Pneumonitis, likely Gram-negative Elevated troponin Lactic acidosis Events: Remains on supplemental oxygen, 3 LPM NC Taper O2 as tolerated Plan for tunneled catheter placement. Poor urine output. Nephrology recs appreciated. On pressors for hemodynamic support On dopamine drip. Titrate to keep mean arterial pressure greater than 65 mmHg. Off heparin drip Cardiology recommendations appreciated. Head of bed elevation Aspiration precautions Pain control Avoid oversedation Continue bronchodilators Continue antibiotics Monitor renal function. Monitor electrolytes. Supplement as necessary. Monitor ins and outs. Labs and imaging reviewed. Rest of plan as noted below. Plan: CT of the chest report and images reviewed from February 14, 2024. No acute pulmonary embolism. Ectasia of the ascending thoracic aorta. Dilated main pulmonary artery suggestive of pulmonary arterial hypertension. Reviewed echo as noted below from February 15, 2024. Normal right ventricular systolic function. 10/10/24 - I presented to the bedside emergently. I was camera port out stat consult for central line placement and possible left pleural effusion. Limited chest ultrasound was performed that demonstrated hepatocyte lung consistent with lung consolidation. On supplemental oxygen, 3 LPM NC Taper O2 as tolerated Continue broad-spectrum antibiotics Follow up cultures. Diurese to euvolemia with Bumex Monitor ins and outs. Monitor renal function. Monitor electrolytes. Supplement as necessary. Elevated troponin Follow up Cardiology recommendations Echo report reviewed from February 15, 2024: Left ventricular ejection fraction 50%. Grade 1 diastolic dysfunction. Normal right ventricular systolic function. BNP within normal limits. Elevated lactic acid level Tapering down with IV fluid hydration Avoid volume overload DVT prophylaxis Updated daughter at bedside. All questions were answered in detail on to her satisfaction. Prognosis: Poor given multiple comorbidities. Rest of plan per hospitalist and other consultants. A total of 51 minutes of clinical care time was spent reviewing the patient record, examining the patient, making a diagnostic and therapeutic plan, discussing this plan with the medical personnel, following up on diagnostic studies and following the patient for clinical stability excluding any and all procedures. At least 50% of this time was spent in direct, [id number] contact. Thank you Dr. Bustos for allowing me to participate in this patient's care. Further recommendations will depend on patient's clinical course. Please do not hesitate to contact me if you have any questions or concerns. This medical document was created using an electronic medical record system with [employer] dictation system. Although this document has been carefully reviewed, there may still be some phonetic and typographical errors. These areas are purely typographical due to imperfections of the software programs, and do not reflect any compromise in the patient's medical care. Dietary Evaluation Review Comments: 1) Consider a Cardiac diet 2) Consider MALATHI BID for wound 3) Continue current plan of care Expected Outcomes/Goals: 1) F/U in 3-5 days Plan discussed with: Patient, Other (SUHA Staton) VERONICA IGLMAN MD Oct 15, 2024 10:39
--- NOTE | 2024-10-15 11:08 | DVHPN2 ---
Progress Note Date Seen: Oct 15, 2024 Medical Necessity Reason Pt with a Central, PICC or Fol: Yes The following are medically ne: Woodward Catheter Reason for woodward catheter: Strict I&O Subjective Patient reports: No new complaints Other Systems: Patient seen and examined by myself today in follow-up Objective vital signs Vital Sign Date Time Temp Pulse Resp B/P (MAP) Pulse Ox O2 Delivery O2 Flow Rate FiO2 10/15/24 09:15 73 21 135/79 10/15/24 09:00 98.1 97 98.1 10/14/24 20:05 Nasal Cannula 3.0 10/14/24 20:05 32 Total Intake and Output 10/14/24 10/14/24 10/15/24 15:00 23:00 07:00 Intake Total 540 ml 400 ml Output Total 100 ml 10 ml Balance 440 ml 390 ml medications Current Medications Medications Dose Ordered Sig/Lisa Route Start Time Stop Time Status Last Admin Dose Admin Albuterol 2.5 mg Q4HPRN PRN NEB 10/10/24 13:15 10/14/24 08:43 2.5 MG Ipratropium [place] 0.5 mg Q4HPRN PRN NEB 10/10/24 13:15 10/14/24 08:43 0.5 MG Al Hydrox/Mg Hydrox/Simethicone 30 ml Q6HP PRN PO 10/10/24 13:15 Docusate Sodium 100 mg BIDPRN PRN PO 10/10/24 13:15 Acetaminophen 650 mg Q6HP PRN PO 10/10/24 13:15 10/14/24 06:15 650 MG Acetaminophen/ Hydrocodone Bitart 1 tab Q4HP PRN PO 10/10/24 13:15 10/14/24 12:00 1 TAB Ondansetron HCl 4 mg Q4HP PRN IV 10/10/24 13:15 Morphine Sulfate 2 mg Q4HPRN PRN IV 10/10/24 13:15 10/15/24 09:15 2 MG Piperacillin Sod/ Tazobactam Sod 100 ml @ 25 mls/hr Q12H IV 10/12/24 18:00 10/14/24 22:00 25 MLS/HR Dopamine HCl/ Dextrose 250 ml @ 5.73 mls/hr Q24H IV 10/12/24 16:15 10/14/24 16:47 5.73 MLS/HR Zirconium Oxide 10 gm BID PO 10/14/24 10:00 10/14/24 22:00 10 GM Bumetanide 2 mg BIDD IV 10/14/24 11:00 10/15/24 06:38 2 MG Hydralazine HCl 10 mg Q6HP PRN IV 10/14/24 23:15 Examination: LUNGS:Normal, CVS:Normal, MSK:Normal laboratory and microbiology Laboratory Tests 10/15/24 04:55 Test 10/15/24 04:55 Range/Units Serum Glucose 100 74-106 mg/dL Microbiology Date/Time Source Procedure Growth Status 10/12/24 09:50 Urine - [place] Urine Culture - Final Escherichia coli Complete 10/10/24 11:31 Blood Blood Culture - Preliminary NO GROWTH AFTER 72 HOURS OF INCUBATION. Resulted Problem List/Assessment/Plan Problem List/Assessment/Plan Acute kidney injury hemodynamically mediated in setting of hypotension, although chronic Diastolic heart failure Chronic kidney disease stage 2 , serum creatinine 1.0 on 10/10/2024 COPD NSTEMI History of DVT/PE Hyperkalemia Anemia of chronic kidney disease Recommendations Patient remained oliguric with minimal urine output I discussed acute hemodialysis with the patient her at the bedside, patient agreed for hemodialysis Consents for tunneled hemodialysis catheter and hemodialysis Hemodialysis after catheter placement Emergent medical treatment for hyperkalemia Renal diet Strict I&Os Woodward catheter Avoid nephrotoxic medication Cardiology consult We will continue to follow Plan discussed with: Patient, Spouse My Orders My Orders Orders - DAVIDE [place] MD Procedure Category Date Status Time Obtain Consent For: ORDERS 10/15/24 Transmitted 10:44 Obtain Consent For: ORDERS 10/15/24 Transmitted 10:44 Dietary Evaluation Review Comments: 1) Consider a Cardiac diet 2) Consider MALATHI BID for wound 3) Continue current plan of care Expected Outcomes/Goals: 1) F/U in 3-5 days DAVIDE NY MD Oct 15, 2024 11:08
[2024-10-15] MEDS: DEXTROSE (50%) 50ML SYRG IV ONE (11:15)
[2024-10-15] MEDS: InsuLIN REG 1unit/0.01ml Soln (100units/ml) IV ONE (11:15)
[2024-10-15] MEDS: ALBUTEROL SULF 2.5 MG/0.5ML(0.5%) NEB SOLN NEB ONE (12:15)
[2024-10-15] MEDS: hydrALAZINE HCL 20 MG/ML VL IV PRN (13:26)
[2024-10-15] MEDS: SODIUM BICARB 8.4% 50Meq/50ml SYR INJ IV ONE (13:26)
--- NOTE | 2024-10-15 13:26 | DVHPN2 ---
Progress Note - Dictate Date Seen: Oct 15, 2024 Medical Necessity Reason Pt with a Central, PICC or Fol: Yes The following are medically ne: Woodward Catheter Reason for woodward catheter: Strict I&O Subjective In bed comfortable. Family is at bedside. Patient is scheduled for dialysis catheter placement today. Her potassium levels elevated for which she received hyperkalemia treatment earlier. Family is inquiring about possible hospice. vital signs Vital Sign Date Time Temp Pulse Resp B/P (MAP) Pulse Ox O2 Delivery O2 Flow Rate FiO2 10/15/24 12:25 74 20 97 10/15/24 12:15 Nasal Cannula 3.0 10/15/24 12:15 32 10/15/24 09:15 135/79 10/15/24 09:00 98.1 98.1 Total Intake and Output 10/14/24 10/14/24 10/15/24 15:00 23:00 07:00 Intake Total 540 ml 400 ml Output Total 100 ml 10 ml Balance 440 ml 390 ml medications Current Medications Medications Dose Ordered Sig/Lisa Route Start Time Stop Time Status Last Admin Dose Admin Albuterol 2.5 mg Q4HPRN PRN NEB 10/10/24 13:15 10/14/24 08:43 2.5 MG Ipratropium [place] 0.5 mg Q4HPRN PRN NEB 10/10/24 13:15 10/14/24 08:43 0.5 MG Al Hydrox/Mg Hydrox/Simethicone 30 ml Q6HP PRN PO 10/10/24 13:15 Docusate Sodium 100 mg BIDPRN PRN PO 10/10/24 13:15 Acetaminophen 650 mg Q6HP PRN PO 10/10/24 13:15 10/14/24 06:15 650 MG Acetaminophen/ Hydrocodone Bitart 1 tab Q4HP PRN PO 10/10/24 13:15 10/14/24 12:00 1 TAB Ondansetron HCl 4 mg Q4HP PRN IV 10/10/24 13:15 Morphine Sulfate 2 mg Q4HPRN PRN IV 10/10/24 13:15 10/15/24 09:15 2 MG Piperacillin Sod/ Tazobactam Sod 100 ml @ 25 mls/hr Q12H IV 10/12/24 18:00 10/14/24 22:00 25 MLS/HR Dopamine HCl/ Dextrose 250 ml @ 5.73 mls/hr Q24H IV 10/12/24 16:15 10/14/24 16:47 5.73 MLS/HR Zirconium Oxide 10 gm BID PO 10/14/24 10:00 10/15/24 11:13 10 GM Bumetanide 2 mg BIDD IV 10/14/24 11:00 10/15/24 06:38 2 MG Hydralazine HCl 10 mg Q6HP PRN IV 10/14/24 23:15 Zirconium Oxide 10 gm TID PO 10/15/24 14:00 10/17/24 06:01 objective Comfortable in bed alert awake oriented to place and person. HEENT neck supple no JVD. Heart regular rate and rhythm S1 and S2. Lungs without rales wheezes. Abdomen soft positive bowel sounds nontender. Extremities positive edema both upper and lower extremities and some anasarca noted in the abdomen region. laboratory and microbiology Laboratory Tests 10/15/24 11:11 10/15/24 04:55 Test 10/15/24 04:55 Range/Units Serum Glucose 100 74-106 mg/dL Assessment/Plan Discussed with the patient and family once again regarding need for hemodialysis given hyperkalemia and no significant urine output with a worsening kidney function. Patient is tentatively scheduled for hemodialysis catheter today. Patient's family however is inquiring about hospice given her overall condition and prognosis is poor. We will have social Service to talked to daughters and patient to make a decision. Meantime continue present management and follow clinical management per clinical course. Overall prognosis remains guarded. Discussed with the patient and family regarding her diagnosis/poor prognosis and plan of care. Problems(with codes): (1) Acute kidney injury (TRAVIS) with acute tubular necrosis (ATN) (2) Acute UTI (urinary tract infection) (3) Pleural effusion, left (4) Leukocytosis (5) Acute on chronic heart failure Dietary Evaluation Review Comments: 1) Consider a Cardiac diet 2) Consider MALATHI BID for wound 3) Continue current plan of care Expected Outcomes/Goals: 1) F/U in 3-5 days Plan discussed with: Patient, Other ELODIA CEBALLOS MD Oct 15, 2024 13:26
[2024-10-15] MEDS: SODIUM ZIRCONIUM CYCL 10 GM PAK PO SCH (14:00)
[2024-10-15 18:31] LABS: Anion Gap 12 (5-15); Carbon Dioxide 25 mmol/L (20-31)
[2024-10-15 18:32] LABS: Calcium 8.9 mg/dL (8.7-10.4)
[2024-10-15 18:36] LABS: BUN/Creatinine Ratio 10.1 (10.0-20.0)
[2024-10-15 18:40] LABS: Blood Urea Nitrogen 76 mg/dL (9-23); Chloride 96 mmol/L (98-107); Glucose 132 mg/dL (74-106); Potassium 5.5 mmol/L (3.5-5.1); Sodium 133 mmol/L (136-145)
--- NOTE | 2024-10-15 20:51 | DVHPN2 ---
Progress Note - Dictate Date Seen: Oct 15, 2024 Medical Necessity Reason Pt with a Central, PICC or Fol: Yes The following are medically ne: Woodward Catheter Reason for woodward catheter: Strict I&O Subjective Patient seen and examined at bedside. Remains on supplemental oxygen Overnight events reviewed. vital signs Vital Sign Date Time Temp Pulse Resp B/P (MAP) Pulse Ox O2 Delivery O2 Flow Rate FiO2 10/15/24 18:35 96 Nasal Cannula* 3 32 10/15/24 18:00 154/71 10/15/24 17:20 70 16 10/15/24 17:00 98.3 98.3 Total Intake and Output 10/14/24 10/14/24 10/15/24 15:00 23:00 07:00 Intake Total 540 ml 400 ml Output Total 100 ml 10 ml Balance 440 ml 390 ml medications Current Medications Medications Dose Ordered Sig/Lisa Route Start Time Stop Time Status Last Admin Dose Admin Albuterol 2.5 mg Q4HPRN PRN NEB 10/10/24 13:15 10/14/24 08:43 2.5 MG Ipratropium [place] 0.5 mg Q4HPRN PRN NEB 10/10/24 13:15 10/14/24 08:43 0.5 MG Al Hydrox/Mg Hydrox/Simethicone 30 ml Q6HP PRN PO 10/10/24 13:15 Docusate Sodium 100 mg BIDPRN PRN PO 10/10/24 13:15 Acetaminophen 650 mg Q6HP PRN PO 10/10/24 13:15 10/14/24 06:15 650 MG Acetaminophen/ Hydrocodone Bitart 1 tab Q4HP PRN PO 10/10/24 13:15 10/14/24 12:00 1 TAB Ondansetron HCl 4 mg Q4HP PRN IV 10/10/24 13:15 Morphine Sulfate 2 mg Q4HPRN PRN IV 10/10/24 13:15 10/15/24 16:50 2 MG Piperacillin Sod/ Tazobactam Sod 100 ml @ 25 mls/hr Q12H IV 10/12/24 18:00 10/15/24 18:00 25 MLS/HR Dopamine HCl/ Dextrose 250 ml @ 5.73 mls/hr Q24H IV 10/12/24 16:15 10/15/24 13:26 5.73 MLS/HR Zirconium Oxide 10 gm BID PO 10/14/24 10:00 10/15/24 11:13 10 GM Bumetanide 2 mg BIDD IV 10/14/24 11:00 10/15/24 18:00 2 MG Hydralazine HCl 10 mg Q6HP PRN IV 10/14/24 23:15 10/15/24 13:26 10 MG Zirconium Oxide 10 gm TID PO 10/15/24 14:00 10/17/24 06:01 objective Gen.: Patient lying in bed in no apparent distress. On supplemental oxygen. Head: Normocephalic, atraumatic. Eyes: EOMI/PERRLA. Ears: Normal hearing. Normal anatomy. Neck/trachea: Trachea midline, supple. Nose: Normal external anatomy. Mouth: Moist mucous membranes. Chest: Decreased air entry bilaterally. No wheezing or rhonchi. Cardiovascular: Positive S1, positive S2. Regular rate and rhythm. Abdomen: Positive bowel sounds in all 4 quadrants. Soft, non-tender, non- distended. : Deferred. Rectal: Deferred. Skin: Warm, dry. Intact. Extremities: 2+ radial pulses bilaterally. No lower extremity edema. Neuro: Awake, alert, oriented x3. No gross motor or sensory deficits. Cranial nerves II through XII intact. Gait not assessed. laboratory and microbiology Laboratory Tests 10/15/24 18:01 10/15/24 04:55 Test 10/15/24 18:01 Range/Units Serum Glucose 132 H 74-106 mg/dL Assessment/Plan Impression: Acute hypoxic respiratory failure Shock, likely septic Leukocytosis Obesity, BMI 30.3 Pulmonary edema Pneumonitis, likely Gram-negative Elevated troponin Lactic acidosis Events: Remains on supplemental oxygen, 3 LPM NC Taper O2 as tolerated Plan for HD catheter placement. Poor urine output. Monitor renal function Follow up Nephrology recommendations. Potassium of 5.1. On pressors for hemodynamic support On dopamine drip. Titrate to keep mean arterial pressure greater than 65 mmHg. Head of bed elevation Aspiration precautions Pain control Avoid oversedation Continue bronchodilators Continue antibiotics Labs and imaging reviewed. Rest of plan as noted below. Plan: CT of the chest report and images reviewed from February 14, 2024. No acute pulmonary embolism. Ectasia of the ascending thoracic aorta. Dilated main pulmonary artery suggestive of pulmonary arterial hypertension. Reviewed echo as noted below from February 15, 2024. Normal right ventricular systolic function. 10/10/24 - I presented to the bedside emergently. I was camera port out stat consult for central line placement and possible left pleural effusion. Limited chest ultrasound was performed that demonstrated hepatocyte lung consistent with lung consolidation. On supplemental oxygen, 3 LPM NC Taper O2 as tolerated Continue broad-spectrum antibiotics Follow up cultures. Diurese to euvolemia with Bumex Monitor ins and outs. Monitor renal function. Monitor electrolytes. Supplement as necessary. Elevated troponin Echo report reviewed from February 15, 2024: Left ventricular ejection fraction 50%. Grade 1 diastolic dysfunction. Normal right ventricular systolic function. BNP within normal limits. Cardiology recommendations appreciated. Monitor lactic acid DVT prophylaxis Prognosis: Poor given multiple comorbidities. Rest of plan per hospitalist and other consultants. A total of 51 minutes of clinical care time was spent reviewing the patient record, examining the patient, making a diagnostic and therapeutic plan, discussing this plan with the medical personnel, following up on diagnostic studies and following the patient for clinical stability excluding any and all procedures. At least 50% of this time was spent in direct, [id number] contact. Thank you Dr. Bustos for allowing me to participate in this patient's care. Further recommendations will depend on patient's clinical course. Please do not hesitate to contact me if you have any questions or concerns. This medical document was created using an electronic medical record system with [employer] dictation system. Although this document has been carefully reviewed, there may still be some phonetic and typographical errors. These areas are purely typographical due to imperfections of the software programs, and do not reflect any compromise in the patient's medical care. Dietary Evaluation Review Comments: 1) Consider a Cardiac diet 2) Consider MALATHI BID for wound 3) Continue current plan of care Expected Outcomes/Goals: 1) F/U in 3-5 days Plan discussed with: Patient, Other (SUHA Staton) VERONICA GILMAN MD Oct 15, 2024 20:51
[2024-10-16 01:00] VITALS: BP 143/78; PULSE 85; RESP 18; TEMP 98.6; O2SAT 94
[2024-10-16 05:00] VITALS: BP 131/72; PULSE 84; RESP 16; TEMP 98.5; O2SAT 96
[2024-10-16] MEDS ORDERED: SODIUM CHL 0.9% 1000 ML BAG XX ONE (07:00)
[2024-10-16 07:04] LABS: Anion Gap 16 (5-15); Calcium 9.7 mg/dL (8.7-10.4); Carbon Dioxide 23 mmol/L (20-31)
[2024-10-16 07:09] LABS: Glucose 106 mg/dL (74-106)
[2024-10-16 07:22] LABS: Chloride 95 mmol/L (98-107); Sodium 134 mmol/L (136-145)
[2024-10-16 07:24] LABS: Potassium 5.8 mmol/L (3.5-5.1)
[2024-10-16 07:34] LABS: BUN/Creatinine Ratio 8.9 (10.0-20.0)
[2024-10-16 07:46] LABS: Blood Urea Nitrogen 69 mg/dL (9-23)
--- NOTE | 2024-10-16 07:48 | DVHPN2 ---
Subjective Pronounce of Changes from previous H/P or p: Changes Objective Vitals Vital Signs Date Time Temp Pulse Resp B/P (MAP) Pulse Ox O2 Delivery O2 Flow Rate FiO2 10/16/24 06:09 131/72 10/16/24 05:00 98.5 84 16 96 98.5 10/15/24 21:30 3.0 10/15/24 20:00 Nasal Cannula* 32 Intake/Output Intake and Output 10/16/24 07:00 Intake Total 100 ml Output Total 300 ml Balance -200 ml Intake Oral 0 ml IV Total 100 ml Output Urine Total 300 ml Medications Current Medications Medications Dose Ordered Sig/Lisa Route Start Time Stop Time Status Last Admin Dose Admin Al Hydrox/Mg Hydrox/Simethicone 30 ml Q6HP PRN PO 10/10/24 13:15 Docusate Sodium 100 mg BIDPRN PRN PO 10/10/24 13:15 Acetaminophen 650 mg Q6HP PRN PO 10/10/24 13:15 10/14/24 06:15 650 MG Acetaminophen/ Hydrocodone Bitart 1 tab Q4HP PRN PO 10/10/24 13:15 10/14/24 12:00 1 TAB Ondansetron HCl 4 mg Q4HP PRN IV 10/10/24 13:15 Morphine Sulfate 2 mg Q4HPRN PRN IV 10/10/24 13:15 10/15/24 16:50 2 MG Piperacillin Sod/ Tazobactam Sod 100 ml @ 25 mls/hr Q12H IV 10/12/24 18:00 10/16/24 06:08 25 MLS/HR Dopamine HCl/ Dextrose 250 ml @ 5.73 mls/hr Q24H IV 10/12/24 16:15 10/15/24 13:26 5.73 MLS/HR Zirconium Oxide 10 gm BID PO 10/14/24 10:00 Hold 10/15/24 11:13 10 GM Bumetanide 2 mg BIDD IV 10/14/24 11:00 10/16/24 06:09 2 MG Hydralazine HCl 10 mg Q6HP PRN IV 10/14/24 23:15 10/15/24 13:26 10 MG Zirconium Oxide 10 gm TID PO 10/15/24 14:00 10/17/24 06:01 10/16/24 06:08 10 GM Laboratory Results Laboratory Tests 10/15/24 04:55 10/16/24 05:49 Chemistry Test 10/15/24 18:01 10/16/24 05:49 Calcium Level 8.9 mg/dL (8.7-10.4) 9.7 mg/dL (8.7-10.4) Urinalysis Test 10/12/24 09:50 10/15/24 00:00 Urine Mucus Few (None Seen) Urine Color Colorless (Yellow) Urine Clarity Turbid (Clear) H Urine pH 5.5 (5.0-9.0) Urine Specific [place] 1.012 (1.001-1.035) Urine Protein 2+ (Negative) H Urine Ketones Negative (Negative) Urine Blood 3+ /uL (Negative) H Urine Nitrite Negative (Negative) Urine Bilirubin Negative (Negative) Urine Urobilinogen Normal mg/dL (Negative) Urine Leukocyte Esterase 3+ /uL (Negative) Urine RBC 358 /hpf (0 - 4) Urine WBC 45 /hpf (0 - 5) Urine Squamous Epithelial Cells Few /hpf (<5) Urine Amorphous Crystals Few /hpf (None Seen) Urine Bacteria Few /hpf (None Seen) H Urine Creatinine 49.49 mg/dL (30.0-125.0) Urine Protein/Creatinine Ratio 3.71 Urine Sodium 96 mmol/L (40-220) Urine Glucose Normal mg/dL (Normal) Urine Total Protein 183.7 mg/dL (1-14) H Microbiology Microbiology Date/Time Source Procedure Growth Status 10/12/24 09:50 Urine - [place] Urine Culture - Final Escherichia coli Complete 10/10/24 11:31 Blood Blood Culture - Final NO GROWTH AFTER 5 DAYS OF INCUBATION. Complete Assessment/Plan Assessment/Plan I was called to pronounce patient about 0701. On arrival patient does not have a pulse, no heart tones noted, no respirations noted, pupils non-responsive, and no response to verbal or tactile stimuli. Time of was 0710. Plan discussed with: Spouse Date of Service: Oct 16, 2024 Billing Provider: JOMAR SWENSON Common Visit Codes: 56529-[id number] INP/OBS CARE (LOW) JOMAR SWENSON Oct 16, 2024 07:48
[2024-10-16 08:00] VITALS: PULSE 0; RESP 0; O2SAT 0
[2024-10-16] MEDS ORDERED: SODIUM BICARB 8.4% 50Meq/50ml SYR INJ IV ONE (13:21)
[2024-10-16] MEDS ORDERED: ATROPINE SULF 1 MG/10ml SYR IM ONE (13:23)
--- NOTE | 2024-10-16 13:57 | DVHDS2 ---
Summary Date of Admission Oct 10, 2024 at 13:01 Date and Time of Expiration: Oct 16, 2024 Labs/Diagnostic Data: Laboratory Results Test 10/16/24 05:49 10/15/24 13:46 10/15/24 04:55 10/15/24 00:00 Sodium Level 134 mmol/L (136-145) Potassium Level 5.8 mmol/L (3.5-5.1) Chloride Level 95 mmol/L (98-107) Carbon Dioxide Level 23 mmol/L (20-31) Anion Gap 16 (5-15) Blood Urea Nitrogen 69 mg/dL (9-23) Creatinine 7.73 mg/dL (0.550-1.02) Glomerular Filtration Rate Calc 5 mL/min (>90) BUN/Creatinine Ratio 8.9 (10.0-20.0) Serum Glucose 106 mg/dL (74-106) Calcium Level 9.7 mg/dL (8.7-10.4) POC Glucose 103 mg/dl (70-106) White Blood Count 14.4 10^3/uL (4.4-10.8) Red Blood Count 3.29 10^6/uL (4.0-5.20) Hemoglobin 9.6 g/dL (12.2-16.2) Hematocrit 29.7 % (36.0-46.0) Mean Corpuscular Volume 90.0 fL (80.0-100.0) Mean Corpuscular Hemoglobin 29.1 pg (28.0-32.0) Mean Corpuscular Hemoglobin Concent 32.3 g/dL (32.0-36.0) Red Cell Distribution Width 19.2 % (11.8-14.3) Platelet Count 245 10^3/uL (140-450) Mean Platelet Volume 7.3 fL (6.9-10.8) Neutrophils (%) (Auto) 86.0 % (37.0-80.0) Lymphocytes (%) (Auto) 6.2 % (10.0-50.0) Monocytes (%) (Auto) 7.4 % (0.0-12.0) Eosinophils (%) (Auto) 0.1 % (0.0-7.0) Basophils (%) (Auto) 0.3 % (0.0-2.0) Neutrophils # (Auto) 12.4 10 ^3/uL (1.6-8.6) Lymphocytes # (Auto) 0.9 10 ^3/uL (0.4-5.4) Monocytes # (Auto) 1.1 10 ^3/uL (0-1.3) Eosinophils # (Auto) 0 10 ^3/uL (0-0.8) Basophils # (Auto) 0 10 ^3/uL (0-0.2) Nucleated Red Blood Cells 0.2 % Prothrombin Time 10.9 sec (9.3-11.8) Prothrombin Time INR 1.03 (0.9-1.15) Activated Partial Thromboplast Time 30.5 SEC (24.5-34.5) Urine Color Colorless (Yellow) Urine Clarity Turbid (Clear) Urine pH 5.5 (5.0-9.0) Urine Specific [place] 1.012 (1.001-1.035) Urine Protein 2+ (Negative) Urine Ketones Negative (Negative) Urine Blood 3+ /uL (Negative) Urine Nitrite Negative (Negative) Urine Bilirubin Negative (Negative) Urine Urobilinogen Normal mg/dL (Negative) Urine Leukocyte Esterase 3+ /uL (Negative) Urine RBC 358 /hpf (0 - 4) Urine WBC 45 /hpf (0 - 5) Urine Squamous Epithelial Cells Few /hpf (<5) Urine Amorphous Crystals Few /hpf (None Seen) Urine Bacteria Few /hpf (None Seen) Urine Creatinine 49.49 mg/dL (30.0-125.0) Urine Protein/Creatinine Ratio 3.71 Urine Sodium 96 mmol/L (40-220) Urine Glucose Normal mg/dL (Normal) Urine Total Protein 183.7 mg/dL (1-14) Test 10/14/24 07:10 10/12/24 09:50 10/11/24 14:20 10/11/24 04:54 Phosphorus Level 8.5 mg/dL (2.4-5.1) Magnesium Level 2.4 mg/dL (1.6-2.6) Vitamin D 25-Hydroxy 21.0 ng/mL (30.0-100) Parathyroid Hormone (Intact) 256.8 pg/mL (18.4-80.1) Hepatitis B Surface Antigen Negative (Negative) Hepatitis C Antibody Negative (Negative) Urine Mucus Few (None Seen) Anti-Nuclear Antibody Comment Comment (.) Cytoplasmic ANCA (c-ANCA) Antibody <1:20 titer (Neg:<1:20) Anti-Proteinase 3 (c-ANCA) <0.2 units (0.0-0.9) Atypical p-ANCA <1:20 titer (Neg:<1:20) Perinuclear ANCA (p-ANCA) Antibody <1:20 titer (Neg:<1:20) Myeloperoxidase Antibody <0.2 units (0.0-0.9) CEM-1 Antibody <0.2 AI (0.0-0.9) SS-A/Ro Antibody <0.2 AI (0.0-0.9) SS-B/La Antibody <0.2 AI (0.0-0.9) Sm Antibody <0.2 AI (0.0-0.9) PULL WORKER Antibody 0.2 AI (0.0-0.9) Scl-70 (Scleroderma) Antibody <0.2 AI (0.0-0.9) Anti-Double Strand DNA Antibody <1 IU/mL (0-9) Chromatin Antibody <0.2 AI (0.0-0.9) Centromere B Antibody <0.2 AI (0.0-0.9) Complement C3 82 mg/dL (82-167) Complement C4 17 mg/dL (12-38) Lactic Acid Level 2.0 mmol/L (0.4-2.0) Troponin I High Sensitivity 806 ng/L (</=34) B-Type Natriuretic Peptide 77.77 pg/mL (0-100) Test 10/10/24 19:30 10/10/24 13:10 10/10/24 12:39 Influenza Type A Antigen Negative (Negative) Influenza Type B Antigen Negative (Negative) SARS-CoV-2 Antigen (Rapid) Negative (NEGATIVE) Total Bilirubin 1.0 mg/dL (0.2-1.0) Aspartate Amino Transferase (AST) 169 U/L (13-40) Alanine Aminotransferase (ALT) 61 U/L (7-40) Alkaline Phosphatase 197 U/L (46-116) Total Protein 5.6 g/dL (5.7-8.2) Albumin 3.6 g/dL (3.2-4.8) Blood Gas Specimen Type Arterial Blood Gas Sample Site Right radial Blood Gas Patient Temperature 37.0 Arterial Blood Date Drawn Arterial Blood pH 7.364 (7.350-7.450) Arterial Blood Partial Pressure CO2 40.2 mmHg (32.0-45.0) Arterial Blood Partial Pressure O2 191.4 mmHg (83.0-108.0) Arterial Blood HCO3 22.4 mmol/L (21.0-28.0) Arterial Blood Oxygen Saturation 99.2 % (94.0-98.0) Arterial Blood Base Excess -2.7 mmol/L (-2.0-3.0) Arterial Blood Oxyhemoglobin 98.3 % (94.0-98.0) Arterial Blood Carboxyhemoglobin 0.4 % (0.5-1.5) Arterial Blood Methemoglobin 0.5 % (0.0-1.5) Kev Test Yes Blood Gas Total Hemoglobin 11.60 g/dL (12.0-16.0) Blood Gas Set Respiration Rate 12.0 Blood Gas Modality Mask - bipap FiO2 % 60.0 Blood Gas EPAP 5 Blood Gas IPAP 12 Other Laboratory Tests 10/16/24 05:49 10/15/24 04:55 [facility] Oct 16, 2024 13:57
[2024-10-16] MEDS ORDERED: DOPamine 1600MCG/ML D5W 250 ML IV SCH (14:15)
--- NOTE | 2024-10-16 19:49 | DVHSR ---
APPROVED REPORT EXAM: LIMITED Two-dimensional and M-mode echocardiogram with Doppler and color Doppler. Blood Pressure: 93/50 mmHg INDICATION chf RISK FACTORS Obesity: Height: 4'11, Weight: 168 DIMENSIONS LVDd4.0 (3.8-5.7cm)LA (2D)3.4 (1.9-4.0cm)Aortic Root3.2 (2.0-3.7cm) LVDs2.6 (2.5-4.0cm)LA (MM) (1.9-4.0cm)Aortic Cusp Exc1.3 (1.5-2.0cm) EF (%) 55.0 (55-70%)Rt. Atrium3.2 (1.9-4.0cm)Asc. Aorta3.5 cm IVSd0.9 (0.7-1.1cm)RV (D) (1.8-2.4cm) PWd1.1 (0.7-1.1cm) Mitral Valve MitralMitral Stenosis E wave0.77m/sMV Mean GR.mmHg A wave0.94m/sMV Peak GR.40mmHg E/A ratio0.82D MVAcm2 DECEL [id number] 1/2 Tim[place] Aortic Valve Aortic ValveAortic Stenosis V11.22m/Yanira Mean GR.8mmHg V21.91m/Yanira Peak GR.15mmHg LVOT Diameter2.2 (1.8-2.4cm)Doppler AVA2.43cm2 Pulmonic Valve V20.97m/s Tricuspid Valve TR Velocity2.42m/s [id number] Other Information Quality : Technically LimitedRhythm : Technically limited study due to patient position.body habitus. Conclusion Technically good study. Sinus rhythm. Mild aortic root enlargement. Mild concentric LVH. Valves are normal. EF of 60% with normal RV function. Mild TR. Small pericardial effusion which appears to be insignificant. No hemodynamic instability discernible . No intracardiac masses thrombi or vegetations discernible.
[2024-10-16] MEDS ORDERED: EPOETIN ALFA-EPBX 10,000 UNIT/1ML VIAL SC ONE (21:00)
--- NOTE | 2024-10-16 22:54 | DVHPN2 ---
Progress Note - Dictate Date Seen: Oct 16, 2024 Medical Necessity Reason Pt with a Central, PICC or Fol: Yes The following are medically ne: Woodward Catheter Reason for woodward catheter: Strict I&O Subjective Patient seen and examined at bedside. Remains on supplemental oxygen Overnight events reviewed. vital signs Vital Sign Date Time Temp Pulse Resp B/P (MAP) Pulse Ox O2 Delivery O2 Flow Rate FiO2 10/16/24 08:00 0 0 0 Room Air* 0 21 10/16/24 06:09 131/72 10/16/24 05:00 98.5 98.5 Total Intake and Output 10/15/24 10/15/24 10/16/24 15:00 23:00 07:00 Intake Total 100 ml 0 ml Output Total 250 ml 50 ml Balance -150 ml -50 ml objective Gen.: Patient lying in bed in no apparent distress. On supplemental oxygen. Head: Normocephalic, atraumatic. Eyes: EOMI/PERRLA. Ears: Normal hearing. Normal anatomy. Neck/trachea: Trachea midline, supple. Nose: Normal external anatomy. Mouth: Moist mucous membranes. Chest: Decreased air entry bilaterally. No wheezing or rhonchi. Cardiovascular: Positive S1, positive S2. Regular rate and rhythm. Abdomen: Positive bowel sounds in all 4 quadrants. Soft, non-tender, non- distended. : Deferred. Rectal: Deferred. Skin: Warm, dry. Intact. Extremities: 2+ radial pulses bilaterally. No lower extremity edema. Neuro: Awake, alert, oriented x3. No gross motor or sensory deficits. Cranial nerves II through XII intact. Gait not assessed. laboratory and microbiology Laboratory Tests 10/16/24 05:49 10/15/24 04:55 Test 10/16/24 05:49 Range/Units Serum Glucose 106 74-106 mg/dL Assessment/Plan Impression: Acute hypoxic respiratory failure Shock, likely septic Leukocytosis Obesity, BMI 30.3 Pulmonary edema Pneumonitis, likely Gram-negative Elevated troponin Lactic acidosis Events: This note reflects my encounter this morning at 630 am. Remains on supplemental oxygen, 2 LPM NC Taper O2 as tolerated Patient is DNR. Plan for hemodialysis today. Monitor renal function On dopamine drip. Titrate to keep mean arterial pressure greater than 65 mmHg. Head of bed elevation Aspiration precautions Continue bronchodilators Continue antibiotics Labs and imaging reviewed. Poor prognosis. High likelihood of demise Addendum: Patient this AM. She was DNR. SUHA Barrientos informed me later this am that patient had . See progress notes for full details. Plan: CT of the chest report and images reviewed from February 14, 2024. No acute pulmonary embolism. Ectasia of the ascending thoracic aorta. Dilated main pulmonary artery suggestive of pulmonary arterial hypertension. Reviewed echo as noted below from February 15, 2024. Normal right ventricular systolic function. 10/10/24 - I presented to the bedside emergently. I was camera port out stat consult for central line placement and possible left pleural effusion. Limited chest ultrasound was performed that demonstrated hepatocyte lung consistent with lung consolidation. On supplemental oxygen, 2 LPM NC Taper O2 as tolerated Continue broad-spectrum antibiotics Follow up cultures. Diurese to euvolemia with Bumex Monitor ins and outs. Monitor renal function. Monitor electrolytes. Supplement as necessary. Elevated troponin Echo report reviewed from February 15, 2024: Left ventricular ejection fraction 50%. Grade 1 diastolic dysfunction. Normal right ventricular systolic function. BNP within normal limits. Cardiology recommendations appreciated. Monitor lactic acid DVT prophylaxis Prognosis: Poor given multiple comorbidities. Rest of plan per hospitalist and other consultants. A total of 51 minutes of clinical care time was spent reviewing the patient record, examining the patient, making a diagnostic and therapeutic plan, discussing this plan with the medical personnel, following up on diagnostic studies and following the patient for clinical stability excluding any and all procedures. At least 50% of this time was spent in direct, [id number] contact. Thank you Dr. Bustos for allowing me to participate in this patient's care. Further recommendations will depend on patient's clinical course. Please do not hesitate to contact me if you have any questions or concerns. This medical document was created using an electronic medical record system with [employer] dictation system. Although this document has been carefully reviewed, there may still be some phonetic and typographical errors. These areas are purely typographical due to imperfections of the software programs, and do not reflect any compromise in the patient's medical care. Dietary Evaluation Review Comments: 1) Consider a Cardiac diet 2) Consider MALATHI BID for wound 3) Continue current plan of care Expected Outcomes/Goals: 1) F/U in 3-5 days Plan discussed with: Other (SUHA Barrientos MD) VERONICA GILMAN MD Oct 16, 2024 22:54
== END 2024-10-16 15:22 | DRG 871 ==
LOC: EDBD 10:13 → ER 10:13 → UNDOADMIN 13:01 → DOU 13:01 → TELE 13:01 → TELE-WESTW 13:13
PROVIDERS: ADMIT Hospitalist; ATTEND Hospitalist
PROC: 5A09357 Assistance with Respiratory Ventilation, Less than 24 Consecutive Hours, Continuous Positive Airway Pressure (ICD-10-PCS; principal; 2024-10-10)
PROC: 02HV33Z Insertion of Infusion Device into Superior Vena Cava, Percutaneous Approach (ICD-10-PCS; 2024-10-10)
PROC: B548ZZA Ultrasonography of Superior Vena Cava, Guidance (ICD-10-PCS; 2024-10-10)
DX: A41.59 Other Gram-negative sepsis (principal); I21.4 Non-ST elevation (NSTEMI) myocardial infarction; J96.01 Acute respiratory failure with hypoxia; R65.21 Severe sepsis with septic shock; N17.0 Acute kidney failure with tubular necrosis; I50.33 Acute on chronic diastolic (congestive) heart failure; J15.69 Pneumonia due to other Gram-negative bacteria; E87.20 Acidosis, unspecified; N39.0 Urinary tract infection, site not specified; I13.0 Hypertensive heart and chronic kidney disease with heart failure and stage 1 through stage 4 chronic kidney disease, or unspecified chronic kidney disease; J44.0 Chronic obstructive pulmonary disease with (acute) lower respiratory infection; Z20.822 Contact with and (suspected) exposure to COVID-19; Z66 Do not resuscitate; E66.9 Obesity, unspecified; I25.10 Atherosclerotic heart disease of native coronary artery without angina pectoris; N18.2 Chronic kidney disease, stage 2 (mild); E78.5 Hyperlipidemia, unspecified; E87.5 Hyperkalemia; D63.1 Anemia in chronic kidney disease; Z68.30 Body mass index [BMI] 30.0-30.9, adult; Z88.0 Allergy status to penicillin; Z83.3 Family history of diabetes mellitus; Z82.3 Family history of stroke; Z80.3 Family history of malignant neoplasm of breast; Z82.0 Family history of epilepsy and other diseases of the nervous system; Z86.718 Personal history of other venous thrombosis and embolism; Z86.711 Personal history of pulmonary embolism; Z82.49 Family history of ischemic heart disease and other diseases of the circulatory system
CPT/HCPCS: 36415; 36600; 71045; 74176; 76775; 80048; 80053; 81001; 82306; 82570; 82805; 82962; 83516; 83520; 83605; 83735; 83880; 83970; 84100; 84132; 84156; 84300; 84484; 85025; 85610; 85730; 86160; 86225; 86235; 86256; 86803; 87040; 87086; 87088; 87186; 87340; 87426; 87804; 93005; 93306; 94640; 94660; 97110; 97163; 99291; G0378; J0153; J1642; J1815; J2543; J7060